=== PATIENT | female | born 1955 | race Caucasian/White ===

== ENCOUNTER 2023-08-06 08:49 | Day surgery (SDC) | payer OTHER ==
[2023-08-02 10:09] LABS: Absolute Lymphocytes (CBC) 1.9 K/uL (0.7-4.9); Hematocrit 41.7 % (36.0-45.0); Lymphocytes % 23.2 % (15.3-44.8); MCV 95.9 fL (80-100); MPV 8.3 fL (7.6-11.3); Platelets 203 thou/uL (152-406); RBC Red Blood Cell Count 4.34 M/uL (3.86-4.86)
[2023-08-02 10:13] LABS: Protime INR 0.91
[2023-08-02 10:20] LABS: Potassium 4.9 mEq/L (3.5-5.1)
--- NOTE | 2023-08-02 11:22 | RAD REPORT ---
EXAM DESCRIPTION: RAD - Chest Pa And Lat (2 Views) - 08/02/2023 11:00 am CLINICAL HISTORY: PRE OP Chest pain. COMPARISON: CHEST SINGLE VIEW dated 11/10/2013 TECHNIQUE: PA and lateral views of the chest were obtained. FINDINGS: The lungs are hyperexpanded compatible with COPD. The heart is upper limit of normal in si ze. No fracture or aggressive bony process. IMPRESSION: COPD without acute process identified. The USPSTF recommends annual screening for lung cancer with low-dose CT (LDCT) in adults aged 50 to 8 0 years who have a 20 pack-year smoking history and currently smoke or have quit within the past 15 y ears.
[2023-08-06] MEDS ORDERED: Ringers Lactate 1,000 ML IV ONE (09:26)
[2023-08-06] MEDS ORDERED: BUPIVACAINE 0.25% PF 10 ML VIAL ONE (09:40)
[2023-08-06] MEDS ORDERED: FENTANYL CITR 100 MCG/2 ML ONE (10:01)
[2023-08-06] MEDS ORDERED: propofoL 200 MG/20 ML VIAL IV ONE (10:01)
[2023-08-06] MEDS ORDERED: dexAMETHasone 10 MG/ML VIAL ONE (10:01)
[2023-08-06] MEDS ORDERED: MIDAZOLAM HCL 2 MG/2 ML INJ ONE (10:02)
[2023-08-06] MEDS ORDERED: LIDOCAINE 2% MPF 5 ML VIAL ONE (10:02)
[2023-08-06] MEDS ORDERED: KETOROLAC 30 MG/ML INJ ONE (10:02)
[2023-08-06] MEDS ORDERED: ONDANSETRON 4 MG/2 ML VIAL ONE (10:03)
[2023-08-06] MEDS ORDERED: VANCOMYCIN 1 GM in NA CHLORIDE 0.9% 250 ML IVPB SCH (10:15)
--- NOTE | 2023-08-06 11:04 | P.BOP ---
Preoperative diagnosis: right knee medial and lateral meniscus tears Postoperative diagnosis: Same Primary procedure: Right knee arthroscopic partial medial and lateral meniscectomy Laserist: NONE,NONE Estimated blood loss: 5 cc Specimen: None Findings: See dictation Anesthesia: General Complications: None Implants: None Fluids & blood products: Per anesthesia record Transferred to: Recovery Room Condition: Good
[2023-08-06] MEDS ORDERED: HYDRALAZINE HCL 20 MG/ML VIAL IV ONE (11:43)
[2023-08-06] MEDS ORDERED: HYDROCODONE/APAP 7.5/325 MG TAB ONE (12:56)
[2023-08-06 13:43] VITALS: BP 158/80; TEMP 97.8; O2SAT 95
--- NOTE | 2023-08-07 14:33 | EKG ---
Test Date: 2023-08-02 Test Time: 10:53:19 [employer] Agent: RADHA MEASUREMENT RESULTS: Intervals: Rate: 73 ID: [id number] QRSD: 82 QT: 404 QTc: 445 [place]: P: 34 ID: [id number] QRS: -7 T: 35 INTERPRETIVE STATEMENTS: Normal sinus rhythm Normal ECG Compared to ECG 11/12/2013 04:54:48 Short ID interval no longer present T-wave abnormality no longer present Electronically Signed On 08-07-23 14:17:53 [employer] DRAWER by Bonifacio Nazario
--- NOTE | 2023-08-09 19:35 | OP ---
Date of Procedure: 08/06/2023 Surgeon: Alex Velasquez MD Preoperative Diagnoses: 1.Right knee medial meniscus tear. 2.Right knee lateral meniscus tear. Postoperative Diagnoses: 1.Right knee medial meniscus tear. 2.Right knee lateral meniscus tear. Procedure Performed: Right knee arthroscopic partial medial and lateral meniscectomies. Anesthesia: General LMA. Fluids: Per Anesthesia record. Estimated Blood Loss: 5 cc. Complications: None. Implants: None. Indication For Procedure: Michelle is a 67-year-old female who presented to my clinic with signs and sy mptoms consistent with right knee lateral and medial meniscus tears. I discussed with the patient at length risks and benefits associated with operative and nonoperative treatment measures. She expres sed understanding and elected to proceed with operative treatment. Description Of Procedure: After informed consent was obtained, the patient was identified in the pre operative holding area. The right lower extremity was marked. The patient was then brought back to the operating room, transferred to the operating table in supine fashion, placed under general LMA an esthesia. The right lower extremity was then prepped and draped in usual sterile fashion. A time-ou t was initiated. The correct patient and procedure were confirmed and identified. The patient did r eceive preoperative prophylactic antibiotics. The right lower extremity was exsanguinated. The tour niquet was inflated to 300 mmHg. Standard anteromedial and anterolateral portals were created. Arth roscope was brought in via an anterolateral portal and diagnostic arthroscopy was performed. The art hroscope was first brought in the patellofemoral joint, and the patient was noted to have some mild f raying of the undersurface of the patella consistent with mild chondromalacia. The arthroscope was b rought into both medial and lateral gutters. There were no loose bodies within the gutters. The art hroscope was then brought into the medial compartment. The patient was noted to have a horizontal cl eavage tear of the posterior horn of the medial meniscus as well as the body. Partial medial menisce ctomy was performed using meniscal biters and arthroscopic shaver to smooth meniscal borders. The ar throscope was then brought into the intercondylar notch. The patient did have an intact ACL and PCL, which were stable to probe. The arthroscope was then brought into the lateral compartment, where th e patient did have a radial-type tear as well as some discoid-type morphology of the lateral meniscus . A partial lateral meniscectomy was performed as well as saucerization of the lateral meniscus usin g meniscal biters and arthroscopic shaver to smooth meniscal borders. The lateral meniscus was found to be stable to probe. All arthroscopic instruments were then removed without complication. Wounds were then irrigated thoroughly with normal saline. The portals were approximated using a 4-0 Monocr yl. Sterile dressings were applied. Tourniquet was let down. The patient was awakened and transfer red back in stable condition. Postoperative Plan: The patient will be weightbearing as tolerated on her right lower extremity. e will follow up next week for wound check. Physical Therapy will be consulted for post-meniscectomy protocol. AYSHA/MARISELA Voice ID: [id number] Report ID: [id number]
== END 2023-08-06 13:00 | disposition home or self-care (01) ==
LOC: OR 08:49
PROVIDERS: ATTEND Orthopaedic Surgery Sports Medicine
PROC: 0SBC4ZZ Excision of Right Knee Joint, Percutaneous Endoscopic Approach (ICD-10-PCS; 2023-08-06)
PROC: 0SBC4ZZ Excision of Right Knee Joint, Percutaneous Endoscopic Approach (ICD-10-PCS; principal; 2023-08-06 10:15)
DX: S83.241A Other tear of medial meniscus, current injury, right knee, initial encounter (principal); S83.281A Other tear of lateral meniscus, current injury, right knee, initial encounter; S83.8X1A Sprain of other specified parts of right knee, initial encounter; Z88.0 Allergy status to penicillin; Z88.1 Allergy status to other antibiotic agents; Z88.2 Allergy status to sulfonamides
CPT/HCPCS: 93005; 85025; 80048; 36415; 85610; 85730; 71046; 29880; J0360; J2704; J2001; J2250; J3010; J1100; J2405; J7120; J7050

== ENCOUNTER 2024-05-08 15:23 | Emergency (ER) | payer OTHER, MEDICARE ==
--- OUTSIDE RECORDS SUMMARY | 2024-05-08 15:36 | XMS REPORT | Continuity of Care Document ---
Author Name Unknown Address [address] [facility] [address] [place] [address] [facility] Address [address] [facility] [address] [place] [address] Care Team Providers Care Global Engineering Manager Name Role Phone Evelyn Kidd MD Primary Care Physician Evelyn Kidd Attending Clinician Unavailable JOHNSON, Luba L Attending Clinician Unavailable QUENTIN RUELAS Attending Clinician Unavailable Quentin Ruelas MD Attending Clinician [phone] Quentin Ruelas MD Attending Clinician [phone] LISS GUTIERREZ Attending Clinician Unavailab TIANA Perez Attending Clinician Unavailable Doctor Unassigned, [place] Attending Clinician U navailJOE Gan Attending Clinician Unavailable HERMAN CARRION Attending Clinician Unav ailable 2, [facility] Attending Clinician Unavailable ERIN SAUNDERS Attending Clinician Un available CHAGO OBRIEN Attending Clinician Unava ilable SHANTHI MILAN Attending Clinician Unavailable Shantel Martinez Attending Clinician [phone] SHANTEL FERNANDEZ Attending Clinician Unavailable Marty Jon MD Attending Clinician MARTY JON Attending Clinician Unavailable GAYLA CALLOWAY Attending Clinician Unavailable Gayla Quintana Attending Clinician CE GROVES Attending Clinician Unavail able QUENTIN RUELAS Admitting Clinician Unavailable Payers Payer Name Policy Type Policy Number Effective Date Expirati on Date Source [facility] [id number] 2021 00:00:00 [facility] [id number] 2017 00:00:00 [place] [address] [id number] [place] [address] [id number] [place] [address] [id number] [facility] Problems Condition Name Condition Details Condition Category Status Onset Date Resolution Date Last Treatment Date Treating Clinician Comments Source Hypertensi ve urgency Hypertensi ve urgency Disease Active 02-21 00:00: 00 [facility] Primary hypertensi on Primary hypertensi on Disease Active 12-02 00:00: 00 [facility] 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 Disease Active 12-02 00:00: 00 [facility] Nonobstruc tive atheroscle rosis of coronary artery Nonobstruc tive atheroscle rosis of coronary artery Disease Active 12-02 00:00: 00 [facility] MDD (major depressive disorder), recurrent episode, moderate MDD (major depressive disorder), recurrent episode, moderate Disease Active 05-17 00:00: 00 [facility] Anxiety Anxiety Disease Active 05-17 00:00: 00 [facility] Chronic pain syndrome Chronic pain syndrome Disease Active 05-17 00:00: 00 [facility] [id number] Stage 3a chronic kidney disease (CKD) Problem [facility] [id number] Gastroesop hageal reflux disease, unspecifie d whether esophagiti s present Problem [facility] [id number] Vitreous degenerati on, bilateral Problem [facility] [id number] 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, bilateral Problem [facility] [id number] Presbyopia Problem [facility] Chronic kidney disease due to hypertensi on Benign hypertensi on with chronic kidney disease, stage III Problem [facility] [id number] Primary osteoarthr itis of right knee Problem [facility] [id number] Coronary artery disease involving sioux coronary artery of sioux heart without angina pectoris Problem [facility] [id number] Vitamin D deficiency Problem [facility] Osteoporos is Osteoporos is Problem [facility] Hyperlipid emia Hyperlipid emia Problem [facility] Allergic rhinitis Allergic rhinitis Problem [facility] Rib pain Rib pain Problem [facility] [id number] Blood glucose elevated Problem [facility] Atheroscle rotic heart disease of sioux coronary artery without angina pectoris Arterioscl erotic coronary artery disease Problem [facility] Back pain Back pain Problem [facility] High cholestero l High cholestero l Problem [facility] [id number] Renal insufficie ncy Problem [facility] Cardiac arrhythmia Abnormal heart rhythm Problem [facility] [id number] Slow transit constipati on Problem [facility] Low blood pressure reading Low blood pressure reading Problem [facility] [id number] Thoracic spondylosi s Problem [facility] [id number] Screening mammogram, encounter for Problem [facility] [id number] Need for Tdap vaccinatio n Problem [facility] [id number] 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 Problem [facility] [id number] Adult general medical examinatio n Problem [facility] Hypertensi on HTN (hypertens ion) Problem [facility] Depression Depression Problem [facility] [id number] Other chronic pain Problem [facility] [id number] Lumbago with sciatica, left side Problem [facility] Cervical disc disorder DDD (degenerat kimberly disc disease), cervical Problem [facility] [id number] Lumbago with sciatica, right side Problem [facility] Allergies, Adverse Reactions, Alerts Allergy Name Allergy Type Status Severity Reaction(s) Onset Date Inactive Date Treating Clinician Comments Source AMLODIPI NE DRUG INGREDI Active Swelling 03-29 00:00: 00 [facility] Amlodipi ne Propensi ty to adverse reaction s Active Swelling 03-29 00:00: 00 [facility] PENICILL IN DRUG INGREDI Active Rash 10-22 00:00: 00 [facility] Penicill in Propensi ty to adverse reaction s to drug Active Rash 10-22 00:00: 00 [facility] doxycycl ine doxycycl ine Active hives, rash [facility] clindamy emmie clindamy emmie Active hives, rash [facility] 8091 Drug allergy Active hives, rash [facility] 0 Drug allergy Active hives [facility] Family History Family Member Diagnosis Comments Start Date Stop Date Sourc e Natural mother Diabetes [facility] Natural mother Heart [facility] Social History Social Habit Start Date Stop Date Quantity Comments Source Gender identity [facility] History of Social function 2024-02-17 00:00:00 2024-02-17 00:00:00 [facility] Alcoholic beverage intake 2024-02-17 00:00:00 2024-02-17 00:00:00 Current non-drinker of alcohol (finding) [facility] Tobacco use and exposure 2024-02-17 00:00:00 2024-02-17 00:00:00 Smokeless tobacco non-user [facility] Alcohol intake 2023-07-09 00:00:00 2023-07-09 00:00:00 Current non-drinker of alcohol (finding) [facility] Exposure to SARS-CoV-2 (event) 2022-10-26 00:00:00 2022-11-05 10:44:00 Not sure [facility] History of tobacco use 2012-10-22 00:00:00 Cigarette Smoker [facility] Smoking Status Start Date Stop Date Source Occasional tobacco smoker 2024-02-17 00:00:00 [facility] Never Smoker [facility] Current Smoker 2022-08-18 00:00:00 [facility] Medications Ordered Medication Name Filled Medication Name Start Date Stop Date Current Medication? Ordering Clinician Indication Dosage Frequency Signature (SIG) Comments Components Source lisinopriL 20 mg tablet 04-11 00:00: 00 Yes [id number] 20mg Take 1 tablet by mouth in the morning and 1 tablet in the evening. [facility] cloNIDine (CATAPRES) tablet 0.1 mg 02-21 20:30: 00 02-21 19:28 :00 No [id number] .1mg 0.1 mg, Oral, ONCE, 1 dose, On Wed02/22/24 at 1530, Routine [facility] cloNIDine (CATAPRES) tablet 0.1 mg 02-21 19:45: 00 02-21 18:52 :00 No [id number] .1mg 0.1 mg, Oral, ONCE, 1 dose, On Wed02/22/24 at 1445, Routine [facility] alendronate (FOSAMAX) 70 mg tablet 02-21 13:42: 27 Yes 70mg Take 1 tablet by mouth weekly. [facility] amLODIPine 10 mg tablet 02-21 00:00: 00 03-29 00:00 :00 No [id number] 10mg Take 1 tablet by mouth in the morning. [facility] rosuvastati n 20 mg tablet 02-16 13:25: 56 Yes 20mg Take 1 tablet by mouth at bedtime. [facility] pravastatin 40 mg tablet 02-16 13:25: 56 03-29 00:00 :00 No 40mg Take 1 tablet by mouth at bedtime. [facility] buPROPion XL (WELLBUTRIN XL) 150 mg 24 hr tablet 02-16 00:00: 00 Yes [id number] 150mg Take 1 tablet by mouth in the morning. Take along with 300mg for 450mg total. [facility] Rosuvastati n Calcium 20 MG Rosuvastati n Calcium 20 MG 02-10 00:00: 00 No 1{table t} QD Rosuvastat in Calcium 20 MG carvediloL 25 mg tablet 01-23 00:00: 00 Yes [id number] 25mg Take 1 tablet by mouth in the morning and 1 tablet in the evening. Take with meals. [facility] buPROPion XL (WELLBUTRIN XL) 300 mg 24 hr tablet 11-11 00:00: 00 Yes [id number] 300mg Take 1 tablet by mouth in the morning. [facility] DULoxetine 60 mg capsule 11-11 00:00: 00 Yes [id number] 60mg Take 1 capsule by mouth in the morning and 1 capsule in the evening. [facility] lisinopriL 20 mg tablet 2022-09 00:00: 00 Yes [id number] 20mg Take 1 tablet by mouth in the morning and 1 tablet in the evening. [facility] Prolia 60 MG/ML Prolia 60 MG/ML 2022-09 017 00:00: 00 No Prolia 60 MG/ML buPROPion XL (WELLBUTRIN XL) 300 mg 24 hr tablet 2022-09 0- 00:00: 00 11-11 00:00 :00 No [id number] 300mg Take 1 tablet by mouth in the morning. [facility] DULoxetine 60 mg capsule 2022-09 0- 00:00: 00 11-11 00:00 :00 No [id number] 60mg Take 1 capsule by mouth in the morning and 1 capsule in the evening. [facility] carvediloL 25 mg tablet 2022-0 9-18 00:00: 00 01-23 00:00 :00 No [id number] 25mg Take 1 tablet by mouth in the morning and 1 tablet in the evening. Take with meals. [facility] DULoxetine 60 mg capsule 0 7-13 00:00: 00 07-09 00:00 :00 No [id number] 60mg Take 1 capsule by mouth in the morning and 1 capsule in the evening. [facility] buPROPion XL 150 mg 24 hr tablet 0 7- 00:00: 00 07-09 00:00 :00 No [id number] 300mg Take 2 tablets by mouth in the morning. [facility] lisinopriL 20 mg tablet 0 5-31 00:00: 00 09-14 00:00 :00 No [id number] 20mg Take 1 tablet by mouth in the morning and 1 tablet in the evening. [facility] carvediloL 25 mg tablet 2022-0 3-17 00:00: 00 06-14 00:00 :00 No [id number] 25mg Take 1 tablet by mouth in the morning and 1 tablet in the evening. Take with meals. [facility] Metoclopram keith 5 mg TbDL 2-09 10:56: 27 Yes Take by mouth 3 (three) times daily. [facility] buPROPion XL 150 mg 24 hr tablet 2022-0 2-09 00:00: 00 04-08 00:00 :00 No [id number] 300mg Take 2 tablets by mouth in the morning. [facility] DULoxetine 60 mg capsule 2022-0 2-09 00:00: 00 04-08 00:00 :00 No [id number] 60mg Take 1 capsule by mouth in the morning and 1 capsule in the evening. [facility] lisinopriL 20 mg tablet 2021-09 1-30 00:00: 00 02-24 00:00 :00 No [id number] 20mg Take 1 tablet by mouth in the morning and 1 tablet in the evening. [facility] carvediloL 12.5 mg tablet 2021-09 00:00: 00 12-11 00:00 :00 No [id number] 12.5mg Take 1 tablet by mouth in the morning and 1 tablet in the evening. Take with meals. [facility] diclofenac 75 mg EC tablet 2021-09 09:44: 39 Yes 75mg Take 75 mg by mouth 3 (three) times daily with meals. [facility] DULoxetine 60 mg capsule 2021-09 00:00: 00 11-05 00:00 :00 No [id number] 60mg Take 1 capsule by mouth in the morning and 1 capsule in the evening. [facility] buPROPion XL 300 mg 24 hr tablet 2021-09 00:00: 00 11-05 00:00 :00 No [id number] 300mg Take 1 tablet by mouth in the morning. [facility] buPROPion XL (WELLBUTRIN XL) 150 mg 24 hr tablet 04-24 00:00: 00 11-05 00:00 :00 No [id number] 150mg Take 1 tablet by mouth in the morning. [facility] buPROPion XL 300 mg 24 hr tablet 04-24 00:00: 00 07-30 00:00 :00 No [id number] 300mg Take 1 tablet by mouth in the morning. [facility] DULoxetine 60 mg capsule 04-24 00:00: 00 07-30 00:00 :00 No [id number] 60mg Take 1 capsule by mouth in the morning and 1 capsule in the evening. [facility] busPIRone 15 mg tablet 04-06 00:00: 00 02-16 00:00 :00 No [id number] 15mg Take 1 tablet by mouth in the morning and 1 tablet in the evening. [facility] lisinopriL 20 mg tablet 02-19 00:00: 00 08-26 00:00 :00 No [id number] 20mg Take 1 tablet by mouth 2 (two) times daily. [facility] carvediloL 12.5 mg tablet 02-19 00:00: 00 08-24 00:00 :00 No [id number] 25mg Take 2 tablets by mouth 2 (two) times daily with meals. [facility] aspirin 81 mg chewable tablet 11-28 08:40: 03 Yes 81mg Take 81 mg by mouth daily. [facility] diclofenac 75 mg EC tablet 11-28 08:40: 03 Yes 75mg Take 75 mg by mouth 3 (three) times daily with meals. [facility] cyclobenzap rine 10 mg tablet 11-28 08:40: 03 Yes 10mg Take 10 mg by mouth 3 (three) times daily. [facility] pravastatin 40 mg tablet 2020-09 10:44: 15 Yes 40mg Take 1 tablet by mouth at bedtime. [facility] DULoxetine 60 mg capsule 2020-09 00:00: 00 04-24 00:00 :00 No [id number] 60mg Take 1 capsule by mouth 2 (two) times daily. [facility] buPROPion XL 300 mg 24 hr tablet 2020-09 00:00: 00 04-24 00:00 :00 No [id number] 300mg Take 1 tablet by mouth daily. [facility] buPROPion XL (WELLBUTRIN XL) 150 mg 24 hr tablet 2020-09 00:00: 00 04-24 00:00 :00 No [id number] 150mg Take 1 tablet by mouth daily. [facility] oxyCODONE C.R. (OXYCONTIN) 80 mg 12 hr tablet 04-21 10:40: 05 Yes 80mg Take 80 mg by mouth every 12 (twelve) hours. [facility] alendronate (FOSAMAX) 70 mg tablet 04-21 10:40: 05 Yes 70mg Take 1 tablet by mouth weekly. [facility] DULoxetine HCl 60 MG DULoxetine HCl 60 MG No 1{capsu le} BID DULoxetine HCl 60 MG Omeprazole 40 MG Omeprazole 40 MG No QD Omeprazole 40 MG Coreg 25 MG Coreg 25 MG No 1{table t_with_ food} BID Coreg 25 MG Calcium 600 MG Calcium 600 MG No 1{table t_with_ meals} BID Calcium 600 MG buPROPion HCl ER (XL) 300 MG buPROPion HCl ER (XL) 300 MG No 1{table t_in_th e_morni ng} QD buPROPion HCl ER (XL) 300 MG Metoclopram keith HCl 5 MG Metoclopram keith HCl 5 MG No 1{table t_befor e_meals } BID Metoclopra mide HCl 5 MG Aspirin 81 MG Aspirin 81 MG No 1{table t} QD Aspirin 81 MG Vitamin D3 10 MCG (400 UNIT) Vitamin D3 10 MCG (400 UNIT) No 2{table ts} QD Vitamin D3 10 MCG (400 UNIT) Lisinopril 20 MG Lisinopril 20 MG No 1{table t} BID Lisinopril 20 MG Buprenorphi ne 10 MCG/HR Buprenorphi ne 10 MCG/HR No 1{patch _to_ski n} Buprenorph ine 10 MCG/HR Immunizations Ordered Immunization Name Filled Immunization Name Date Status Comments Source TDAP 2022-01-22 00:00:00 Completed [facility] TDAP 2022-01-22 00:00:00 Completed [facility] TDAP 2022-01-22 00:00:00 Completed [facility] TDAP 2022-01-22 00:00:00 Completed [facility] TDAP 2022-01-22 00:00:00 Completed [facility] TDAP 2022-01-22 00:00:00 Completed [facility] TDAP 2022-01-22 00:00:00 Completed [facility] TDAP 2022-01-22 00:00:00 Completed [facility] TDAP 2022-01-22 00:00:00 Completed [facility] TDAP 2022-01-22 00:00:00 Completed [facility] TDAP 2022-01-22 00:00:00 Completed [facility] TDAP 2022-01-22 00:00:00 Completed [facility] TDAP 2022-01-22 00:00:00 Completed [facility] TDAP 2022-01-22 00:00:00 Completed [facility] TDAP 2022-01-22 00:00:00 Completed [facility] TDAP 2022-01-22 00:00:00 Completed [facility] TDAP 2022-01-22 00:00:00 Completed [facility] TDAP 2022-01-22 00:00:00 Completed [facility] TDAP 2022-01-22 00:00:00 Completed [facility] TDAP 2022-01-22 00:00:00 Completed [facility] TDAP 2022-01-22 00:00:00 Completed [facility] TDAP 2022-01-22 00:00:00 Completed [facility] TDAP 2022-01-22 00:00:00 Completed [facility] TDAP 2022-01-22 00:00:00 Completed [facility] TDAP 2022-01-22 00:00:00 Completed [facility] TDAP 2022-01-22 00:00:00 Completed [facility] TDAP 2022-01-22 00:00:00 Completed [facility] TDAP 2022-01-22 00:00:00 Completed [facility] Influenza Virus Vaccine 2021-07-27 00:00:00 Completed [facility] Influenza Virus Vaccine 2021-07-27 00:00:00 Completed [facility] Influenza Virus Vaccine 2021-07-27 00:00:00 Completed [facility] Influenza Virus Vaccine 2021-07-27 00:00:00 Completed [facility] Influenza Virus Vaccine 2021-07-27 00:00:00 Completed [facility] Influenza Virus Vaccine 2021-07-27 00:00:00 Completed [facility] Influenza Virus Vaccine 2021-07-27 00:00:00 Completed [facility] Influenza Virus Vaccine 2021-07-27 00:00:00 Completed [facility] Influenza Virus Vaccine 2021-07-27 00:00:00 Completed [facility] Influenza Virus Vaccine 2021-07-27 00:00:00 Completed [facility] Influenza Virus Vaccine 2021-07-27 00:00:00 Completed [facility] Influenza Virus Vaccine 2021-07-27 00:00:00 Completed [facility] Influenza Virus Vaccine 2021-07-27 00:00:00 Completed [facility] Influenza Virus Vaccine 2021-07-27 00:00:00 Completed [facility] Influenza Virus Vaccine 2021-07-27 00:00:00 Completed [facility] Influenza Virus Vaccine 2021-07-27 00:00:00 Completed [facility] Influenza Virus Vaccine 2021-07-27 00:00:00 Completed [facility] Influenza Virus Vaccine 2021-07-27 00:00:00 Completed [facility] Influenza Virus Vaccine 2021-07-27 00:00:00 Completed [facility] Influenza Virus Vaccine 2021-07-27 00:00:00 Completed [facility] Influenza Virus Vaccine 2021-07-27 00:00:00 Completed [facility] Influenza Virus Vaccine 2021-07-27 00:00:00 Completed [facility] Influenza Virus Vaccine 2021-07-27 00:00:00 Completed [facility] Influenza Virus Vaccine 2021-07-27 00:00:00 Completed [facility] Influenza Virus Vaccine 2021-07-27 00:00:00 Completed [facility] Influenza Virus Vaccine 2021-07-27 00:00:00 Completed [facility] Influenza Virus Vaccine 2021-07-27 00:00:00 Completed [facility] Influenza Virus Vaccine 2021-07-27 00:00:00 Completed [facility] FluAD FluAD 2021-06-30 11:57:00 Completed [facility] FluAD FluAD 2021-06-30 11:57:00 Completed [facility] FluAD FluAD 2021-06-30 11:57:00 Completed [facility] FluAD FluAD 2021-06-30 11:57:00 Completed [facility] FluAD FluAD 2021-06-30 11:57:00 Completed [facility] FluAD FluAD 2021-06-30 11:57:00 Completed [facility] FluAD FluAD 2021-06-30 11:57:00 Completed [facility] FluAD FluAD 2021-06-30 11:57:00 [facility]pleted [facility] FluAD FluAD 2021-06-30 11:57:00 Completed [facility] FluAD FluAD 2021-06-30 11:57:00 Completed [facility] FluAD FluAD 2021-06-30 11:57:00 Completed [facility] FluAD FluAD 2021-06-30 11:57:00 Completed [facility] Prevnar 13 (PCV13) Prevnar 13 (PCV13) 2021-06-30 11:56:00 Completed [facility] Prevnar 13 (PCV13) Prevnar 13 (PCV13) 2021-06-30 11:56:00 Completed [facility] Prevnar 13 (PCV13) Prevnar 13 (PCV13) 2021-06-30 11:56:00 Completed [facility] Prevnar 13 (PCV13) Prevnar 13 (PCV13) 2021-06-30 11:56:00 Completed [facility] Prevnar 13 (PCV13) Prevnar 13 (PCV13) 2021-06-30 11:56:00 Completed [facility] Prevnar 13 (PCV13) Prevnar 13 (PCV13) 2021-06-30 11:56:00 Completed [facility] Prevnar 13 (PCV13) Prevnar 13 (PCV13) 2021-06-30 11:56:00 Completed [facility] Prevnar 13 (PCV13) Prevnar 13 (PCV13) 2021-06-30 11:56:00 Completed [facility] Prevnar 13 (PCV13) Prevnar 13 (PCV13) 2021-06-30 11:56:00 Completed [facility] Prevnar 13 (PCV13) Prevnar 13 (PCV13) 2021-06-30 11:56:00 Completed [facility] Prevnar 13 (PCV13) Prevnar 13 (PCV13) 2021-06-30 11:56:00 Completed [facility] Prevnar 13 (PCV13) Prevnar 13 (PCV13) 2021-06-30 11:56:00 Completed [facility] Flucelvax - single dose syringe Flucelvax - single dose syringe 2018-09-15 09:39:00 Completed [facility] Flucelvax - single dose syringe Flucelvax - single dose syringe 2018-09-15 09:39:00 Completed [facility] Flucelvax - single dose syringe Flucelvax - single dose syringe 2018-09-15 09:39:00 Completed [facility] Flucelvax - single dose syringe Flucelvax - single dose syringe 2018-09-15 09:39:00 Completed [facility] Flucelvax - single dose syringe Flucelvax - single dose syringe 2018-09-15 09:39:00 Completed [facility] Flucelvax - single dose syringe Flucelvax - single dose syringe 2018-09-15 09:39:00 Completed [facility] Flucelvax - single dose syringe Flucelvax - single dose syringe 2018-09-15 09:39:00 Completed [facility] Flucelvax - single dose syringe Flucelvax - single dose syringe 2018-09-15 09:39:00 Completed [facility] Flucelvax - single dose syringe Flucelvax - single dose syringe 2018-09-15 09:39:00 Completed [facility] Flucelvax - single dose syringe Flucelvax - single dose syringe 2018-09-15 09:39:00 Completed [facility] Flucelvax - single dose syringe Flucelvax - single dose syringe 2018-09-15 09:39:00 Completed [facility] Flucelvax - single dose syringe Flucelvax - single dose syringe 2018-09-15 09:39:00 Completed [facility] Flucelvax - single dose syringe Flucelvax - single dose syringe 2018-09-15 09:39:00 Completed [facility] Flucelvax - single dose syringe Flucelvax - single dose syringe 2018-09-15 09:39:00 Completed [facility] Flucelvax - single dose syringe Flucelvax - single dose syringe 2018-09-15 00:00:00 Completed [facility] Adacel (Tdap) Adacel (Tdap) 2018-03-16 12:20:00 Completed [facility] Adacel (Tdap) Adacel (Tdap) 2018-03-16 12:20:00 Completed [facility] Adacel (Tdap) Adacel (Tdap) 2018-03-16 12:20:00 Completed [facility] Adacel (Tdap) Adacel (Tdap) 2018-03-16 12:20:00 Completed [facility] Adacel (Tdap) Adacel (Tdap) 2018-03-16 12:20:00 Completed [facility] Adacel (Tdap) Adacel (Tdap) 2018-03-16 12:20:00 Completed [facility] Adacel (Tdap) Adacel (Tdap) 2018-03-16 12:20:00 Completed [facility] Adacel (Tdap) Adacel (Tdap) 2018-03-16 12:20:00 [facility]pleted [facility] Adacel (Tdap) Adacel (Tdap) 2018-03-16 12:20:00 [facility] Adacel (Tdap) Adacel (Tdap) 2018-03-16 12:20:00 Completed [facility] Adacel (Tdap) Adacel (Tdap) 2018-03-16 12:20:00 [facility]pleted [facility] Adacel (Tdap) Adacel (Tdap) 2018-03-16 12:20:00 Completed [facility] Adacel (Tdap) Adacel (Tdap) 2018-03-16 12:20:00 Completed [facility] Adacel (Tdap) Adacel (Tdap) 2018-03-16 12:20:00 Completed [facility] TDAP > 7 Years-Adacel TDAP > 7 Years-Adacel 2018-03-16 00:00:00 Completed [facility] Influenza Virus Vaccine Unknown Completed [facility] TDAP Unknown Completed [facility] Influenza Virus Vaccine Unknown Completed [facility] TDAP Unknown Completed [facility] Influenza Virus Vaccine Unknown Completed [facility] TDAP Unknown Completed [facility] Influenza Virus Vaccine Unknown Completed [facility] TDAP Unknown Completed [facility] Influenza Virus Vaccine Unknown Completed [facility] TDAP Unknown Completed [facility] Influenza Virus Vaccine Unknown Completed [facility] TDAP Unknown Completed [facility] Influenza Virus Vaccine Unknown Completed [facility] TDAP Unknown Completed [facility] Influenza Virus Vaccine Unknown Completed [facility] TDAP Unknown Completed [facility] Influenza Virus Vaccine Unknown Completed [facility] TDAP Unknown Completed [facility] Influenza Virus Vaccine Unknown Completed [facility] TDAP Unknown Completed [facility] Influenza Virus Vaccine Unknown Completed [facility] TDAP Unknown Completed [facility] Influenza Virus Vaccine Unknown Completed [facility] TDAP Unknown Completed [facility] Influenza Virus Vaccine Unknown Completed [facility] TDAP Unknown Completed [facility] Influenza Virus Vaccine Unknown Completed [facility] TDAP Unknown Completed [facility] Influenza Virus Vaccine Unknown Completed [facility] TDAP Unknown Completed [facility] Influenza Virus Vaccine Unknown Completed [facility] TDAP Unknown Completed [facility] Influenza Virus Vaccine Unknown Completed [facility] TDAP Unknown Completed [facility] Influenza Virus Vaccine Unknown Completed [facility] TDAP Unknown Completed [facility] Influenza Virus Vaccine Unknown Completed [facility] TDAP Unknown Completed [facility] Influenza Virus Vaccine Unknown Completed [facility] TDAP Unknown Completed [facility] Influenza Virus Vaccine Unknown Completed [facility] TDAP Unknown Completed [facility] Influenza Virus Vaccine Unknown Completed [facility] TDAP Unknown Completed [facility] Influenza Virus Vaccine Unknown Completed [facility] TDAP Unknown Completed [facility] Influenza Virus Vaccine Unknown Completed [facility] TDAP Unknown Completed [facility] Influenza Virus Vaccine Unknown Completed [facility] TDAP Unknown Completed [facility] Influenza Virus Vaccine Unknown Completed [facility] TDAP Unknown Completed [facility] Influenza Virus Vaccine Unknown Completed [facility] TDAP Unknown Completed [facility] FluAD FluAD Unknown Completed [facility] Flucelvax (ccIIV4) - SDS - 0.5mL Flucelvax (ccIIV4) - SDS - 0.5mL Unknown Completed [facility] Adacel (Tdap) Adacel (Tdap) Unknown Completed [facility] Prevnar 13 (PCV13) Prevnar 13 (PCV13) Unknown Completed [facility] FluAD FluAD Unknown Completed [facility] Flucelvax (ccIIV4) - SDS - 0.5mL Flucelvax (ccIIV4) - SDS - 0.5mL Unknown Completed [facility] Adacel (Tdap) Adacel (Tdap) Unknown Completed [facility] Prevnar 13 (PCV13) Prevnar 13 (PCV13) Unknown Completed [facility] FluAD FluAD Unknown Completed [facility] Flucelvax (ccIIV4) - SDS - 0.5mL Flucelvax (ccIIV4) - SDS - 0.5mL Unknown Completed [facility] Adacel (Tdap) Adacel (Tdap) Unknown Completed [facility] Prevnar 13 (PCV13) Prevnar 13 (PCV13) Unknown Completed [facility] FluAD FluAD Unknown Completed [facility] Flucelvax (ccIIV4) - SDS - 0.5mL Flucelvax (ccIIV4) - SDS - 0.5mL Unknown Completed [facility] Adacel (Tdap) Adacel (Tdap) Unknown Completed [facility] Prevnar 13 (PCV13) Prevnar 13 (PCV13) Unknown Completed [facility] FluAD FluAD Unknown Completed [facility] Flucelvax (ccIIV4) - SDS - 0.5mL Flucelvax (ccIIV4) - SDS - 0.5mL Unknown Completed [facility] Adacel (Tdap) Adacel (Tdap) Unknown Completed [facility] Prevnar 13 (PCV13) Prevnar 13 (PCV13) Unknown Completed [facility] FluAD FluAD Unknown Completed [facility] Flucelvax (ccIIV4) - SDS - 0.5mL Flucelvax (ccIIV4) - SDS - 0.5mL Unknown Completed [facility] Adacel (Tdap) Adacel (Tdap) Unknown Completed [facility] Prevnar 13 (PCV13) Prevnar 13 (PCV13) Unknown Completed [facility] FluAD FluAD Unknown Completed [facility] Flucelvax (ccIIV4) - SDS - 0.5mL Flucelvax (ccIIV4) - SDS - 0.5mL Unknown Completed [facility] Adacel (Tdap) Adacel (Tdap) Unknown Completed [facility] Prevnar 13 (PCV13) Prevnar 13 (PCV13) Unknown Completed [facility] FluAD FluAD Unknown Completed [facility] Flucelvax (ccIIV4) - SDS - 0.5mL Flucelvax (ccIIV4) - SDS - 0.5mL Unknown Completed [facility] Adacel (Tdap) Adacel (Tdap) Unknown Completed [facility] Prevnar 13 (PCV13) Prevnar 13 (PCV13) Unknown Completed [facility] FluAD FluAD Unknown Completed [facility] Flucelvax (ccIIV4) - SDS - 0.5mL Flucelvax (ccIIV4) - SDS - 0.5mL Unknown Completed [facility] Adacel (Tdap) Adacel (Tdap) Unknown Completed [facility] Prevnar 13 (PCV13) Prevnar 13 (PCV13) Unknown Completed [facility] FluAD FluAD Unknown Completed [facility] Flucelvax (ccIIV4) - SDS - 0.5mL Flucelvax (ccIIV4) - SDS - 0.5mL Unknown Completed [facility] Adacel (Tdap) Adacel (Tdap) Unknown Completed [facility] Prevnar 13 (PCV13) Prevnar 13 (PCV13) Unknown Completed [facility] FluAD FluAD Unknown Completed [facility] Flucelvax (ccIIV4) - SDS - 0.5mL Flucelvax (ccIIV4) - SDS - 0.5mL Unknown Completed [facility] Adacel (Tdap) Adacel (Tdap) Unknown Completed [facility] Prevnar 13 (PCV13) Prevnar 13 (PCV13) Unknown Completed [facility] FluAD FluAD Unknown Completed [facility] Flucelvax (ccIIV4) - SDS - 0.5mL Flucelvax (ccIIV4) - SDS - 0.5mL Unknown Completed [facility] Adacel (Tdap) Adacel (Tdap) Unknown Completed [facility] Prevnar 13 (PCV13) Prevnar 13 (PCV13) Unknown Completed [facility] FluAD FluAD Unknown Completed [facility] Flucelvax (ccIIV4) - SDS - 0.5mL Flucelvax (ccIIV4) - SDS - 0.5mL Unknown Completed [facility] Adacel (Tdap) Adacel (Tdap) Unknown Completed [facility] Prevnar 13 (PCV13) Prevnar 13 (PCV13) Unknown Completed [facility] FluAD FluAD Unknown Completed [facility] Flucelvax (ccIIV4) - SDS - 0.5mL Flucelvax (ccIIV4) - SDS - 0.5mL Unknown Completed [facility] Adacel (Tdap) Adacel (Tdap) Unknown Completed [facility] Prevnar 13 (PCV13) Prevnar 13 (PCV13) Unknown Completed [facility] FluAD FluAD Unknown Completed [facility] Flucelvax (ccIIV4) - SDS - 0.5mL Flucelvax (ccIIV4) - SDS - 0.5mL Unknown Completed [facility] Adacel (Tdap) Adacel (Tdap) Unknown Completed [facility] Prevnar 13 (PCV13) Prevnar 13 (PCV13) Unknown Completed [facility] FluAD FluAD Unknown Completed [facility] Flucelvax (ccIIV4) - SDS - 0.5mL Flucelvax (ccIIV4) - SDS - 0.5mL Unknown Completed [facility] Adacel (Tdap) Adacel (Tdap) Unknown Completed [facility] Prevnar 13 (PCV13) Prevnar 13 (PCV13) Unknown Completed [facility] Prevnar 20 (PCV20) Prevnar 20 (PCV20) Unknown Completed [facility] FluAD FluAD Unknown Completed [facility] Flucelvax (ccIIV4) - SDS - 0.5mL Flucelvax (ccIIV4) - SDS - 0.5mL Unknown Completed [facility] Adacel (Tdap) Adacel (Tdap) Unknown Completed [facility] Prevnar 13 (PCV13) Prevnar 13 (PCV13) Unknown Completed [facility] Prevnar 20 (PCV20) Prevnar 20 (PCV20) Unknown Completed [facility] FluAD FluAD Unknown Completed [facility] Flucelvax (ccIIV4) - SDS - 0.5mL Flucelvax (ccIIV4) - SDS - 0.5mL Unknown Completed [facility] Adacel (Tdap) Adacel (Tdap) Unknown Completed [facility] Prevnar 13 (PCV13) Prevnar 13 (PCV13) Unknown Completed [facility] Prevnar 20 (PCV20) Prevnar 20 (PCV20) Unknown Completed [facility] FluAD FluAD Unknown Completed [facility] Flucelvax (ccIIV4) - SDS - 0.5mL Flucelvax (ccIIV4) - SDS - 0.5mL Unknown Completed [facility] Adacel (Tdap) Adacel (Tdap) Unknown Completed [facility] Prevnar 13 (PCV13) Prevnar 13 (PCV13) Unknown Completed [facility] Vital Signs Vital Name Observation Time Observation Value Comments S ource Systolic blood pressure 2024-03-29 18:31:00 173 mm[Hg] taken w/pt's bp machine [facility] Diastolic blood pressure 2024-03-29 18:31:00 108 mm[Hg] taken w/pt's bp machine [facility] Heart rate 2024-03-29 18:31:00 81 /min [facility] Respiratory rate 2024-03-29 18:29:00 17 /min [facility] Body height 2024-03-29 18:29:00 148.6 cm [facility] Body weight 2024-03-29 18:29:00 58.06 kg [facility] BMI 2024-03-29 18:29:00 26.30 kg/m2 [facility] Oxygen saturation in Arterial blood by Pulse oximetry 2024-03-29 18:29:00 96 /min [facility] Body temperature 2024-03-29 18:29:00 36.44 Sarah [facility] Systolic blood pressure 2024-02-22 20:12:00 172 mm[Hg] [facility] Diastolic blood pressure 2024-02-22 20:12:00 99 mm[Hg] [facility] Heart rate 2024-02-22 19:22:00 81 /min [facility] Oxygen saturation in Arterial blood by Pulse oximetry 2024-02-22 19:22:00 98 /min [facility] Body temperature 2024-02-22 18:39:00 36.56 Sarah [facility] Respiratory rate 2024-02-22 18:39:00 17 /min [facility] Body weight 2024-02-22 18:39:00 55.974 kg [facility] BMI 2024-02-22 18:39:00 25.35 kg/m2 [facility] Body height 2024-02-22 18:37:00 148.6 cm per pt [facility] height 2024-02-11 08:40:00 58 [in_i] [facility] weight 2024-02-11 08:40:00 125.2 [lb_av] [facility] temperature 2024-02-11 08:40:00 97.2 [degF] [facility] bmi 2024-02-11 08:40:00 26.16 kg/m2 [facility] oximetry 2024-02-11 08:40:00 97 % [facility] respiratory rate 2024-02-11 08:40:00 16 /min [facility] blood pressure systolic 2024-02-11 08:40:00 134 mm[Hg] [facility] blood pressure diastolic 2024-02-11 08:40:00 72 mm[Hg] [facility] height 2024-02-11 08:40:00 58 [in_i] [facility] weight 2024-02-11 08:40:00 125.2 [lb_av] [facility] temperature 2024-02-11 08:40:00 97.2 [degF] [facility] bmi 2024-02-11 08:40:00 26.16 kg/m2 [facility] oximetry 2024-02-11 08:40:00 97 % [facility] respiratory rate 2024-02-11 08:40:00 16 /min [facility] blood pressure systolic 2024-02-11 08:40:00 134 mm[Hg] [facility] blood pressure diastolic 2024-02-11 08:40:00 72 mm[Hg] [facility] height 2023-09-30 10:45:00 58 [in_i] [facility] weight 2023-09-30 10:45:00 125 [lb_av] [facility] temperature 2023-09-30 10:45:00 98.0 [degF] [facility] bmi 2023-09-30 10:45:00 26.1 kg/m2 [facility] blood pressure systolic 2023-09-30 10:45:00 132 mm[Hg] [facility] blood pressure diastolic 2023-09-30 10:45:00 76 mm[Hg] [facility] height 2023-08-31 09:00:00 58 [in_i] [facility] weight 2023-08-31 09:00:00 125 [lb_av] [facility] temperature 2023-08-31 09:00:00 98.6 [degF] [facility] bmi 2023-08-31 09:00:00 26.12 kg/m2 [facility] blood pressure systolic 2023-08-31 09:00:00 128 mm[Hg] [facility] blood pressure diastolic 2023-08-31 09:00:00 74 mm[Hg] [facility] height 2023-08-12 08:30:00 58 [in_i] [facility] weight 2023-08-12 08:30:00 125 [lb_av] [facility] temperature 2023-08-12 08:30:00 98.0 [degF] [facility] bmi 2023-08-12 08:30:00 26.12 kg/m2 [facility] blood pressure systolic 2023-08-12 08:30:00 124 mm[Hg] [facility] blood pressure diastolic 2023-08-12 08:30:00 72 mm[Hg] [facility] height 2023-07-13 14:20:00 58 [in_i] [facility] weight 2023-07-13 14:20:00 124.8 [lb_av] [facility] temperature 2023-07-13 14:20:00 97.3 [degF] [facility] bmi 2023-07-13 14:20:00 26.08 kg/m2 [facility] oximetry 2023-07-13 14:20:00 95 % [facility] respiratory rate 2023-07-13 14:20:00 16 /min [facility] blood pressure systolic 2023-07-13 14:20:00 136 mm[Hg] [facility] blood pressure diastolic 2023-07-13 14:20:00 82 mm[Hg] [facility] height 2023-07-13 08:15:00 58 [in_i] [facility] weight 2023-07-13 08:15:00 125 [lb_av] [facility] bmi 2023-07-13 08:15:00 26.12 kg/m2 [facility] blood pressure systolic 2023-07-13 08:15:00 129 mm[Hg] [facility] blood pressure diastolic 2023-07-13 08:15:00 84 mm[Hg] [facility] height 2023-06-15 15:00:00 58 [in_i] [facility] weight 2023-06-15 15:00:00 125.9 [lb_av] [facility] bmi 2023-06-15 15:00:00 26.31 kg/m2 [facility] blood pressure systolic 2023-06-15 15:00:00 134 mm[Hg] [facility] blood pressure diastolic 2023-06-15 15:00:00 84 mm[Hg] [facility] height 2023-06-01 09:20:00 60.00 [in_i] [facility] weight 2023-06-01 09:20:00 124 [lb_av] [facility] temperature 2023-06-01 09:20:00 97.4 [degF] [facility] bmi 2023-06-01 09:20:00 24.21 kg/m2 [facility] oximetry 2023-06-01 09:20:00 96 % [facility] respiratory rate 2023-06-01 09:20:00 16 /min [facility] blood pressure systolic 2023-06-01 09:20:00 111 mm[Hg] [facility] blood pressure diastolic 2023-06-01 09:20:00 74 mm[Hg] [facility] Systolic blood pressure 2023-04-19 15:10:00 128 mm[Hg] [facility] Diastolic blood pressure 2023-04-19 15:10:00 71 mm[Hg] [facility] Heart rate 2023-04-19 15:10:00 61 /min [facility] Respiratory rate 2023-04-19 15:10:00 19 /min [facility] Body height 2023-04-19 15:10:00 148.6 cm [facility] Body weight 2023-04-19 15:10:00 56.564 kg [facility] BMI 2023-04-19 15:10:00 25.62 kg/m2 [facility] Oxygen saturation in Arterial blood by Pulse oximetry 2023-04-19 15:10:00 97 /min [facility] height 2022-08-18 16:20:00 60.00 [in_i] [facility] weight 2022-08-18 16:20:00 136.4 [lb_av] [facility] temperature 2022-08-18 16:20:00 97.7 [degF] [facility] bmi 2022-08-18 16:20:00 26.64 kg/m2 [facility] oximetry 2022-08-18 16:20:00 96 % [facility] respiratory rate 2022-08-18 16:20:00 18 /min [facility] blood pressure systolic 2022-08-18 16:20:00 132 mm[Hg] [facility] blood pressure diastolic 2022-08-18 16:20:00 82 mm[Hg] [facility] height 2022-05-19 11:00:00 60.00 [in_i] [facility] weight 2022-05-19 11:00:00 134 [lb_av] [facility] bmi 2022-05-19 11:00:00 26.17 kg/m2 [facility] Systolic blood pressure 2022-04-22 15:14:00 136 mm[Hg] [facility] Diastolic blood pressure 2022-04-22 15:14:00 78 mm[Hg] [facility] Heart rate 2022-04-22 15:14:00 65 /min [facility] Body temperature 2022-04-22 15:12:00 35.83 Sarah [facility] Respiratory rate 2022-04-22 15:12:00 16 /min [facility] Body height 2022-04-22 15:12:00 147.3 cm [facility] Body weight 2022-04-22 15:12:00 60.328 kg [facility] BMI 2022-04-22 15:12:00 27.80 kg/m2 [facility] Oxygen saturation in Arterial blood by Pulse oximetry 2022-04-22 15:12:00 98 /min [facility] height 2022-02-16 11:00:00 60.00 [in_i] [facility] weight 2022-02-16 11:00:00 134.8 [lb_av] [facility] temperature 2022-02-16 11:00:00 97.5 [degF] [facility] bmi 2022-02-16 11:00:00 26.32 kg/m2 [facility] oximetry 2022-02-16 11:00:00 97 % [facility] respiratory rate 2022-02-16 11:00:00 17 /min [facility] blood pressure systolic 2022-02-16 11:00:00 139 mm[Hg] [facility] blood pressure diastolic 2022-02-16 11:00:00 85 mm[Hg] [facility] height 2021-11-18 10:20:00 60.00 [in_i] [facility] weight 2021-11-18 10:20:00 139.2 [lb_av] [facility] temperature 2021-11-18 10:20:00 98.0 [degF] [facility] bmi 2021-11-18 10:20:00 27.18 kg/m2 [facility] oximetry 2021-11-18 10:20:00 97 % [facility] respiratory rate 2021-11-18 10:20:00 16 /min [facility] blood pressure systolic 2021-11-18 10:20:00 138 mm[Hg] [facility] blood pressure diastolic 2021-11-18 10:20:00 72 mm[Hg] [facility] height 2021-06-30 11:00:00 60.00 [in_i] [facility] weight 2021-06-30 11:00:00 129 [lb_av] [facility] temperature 2021-06-30 11:00:00 97.4 [degF] [facility] bmi 2021-06-30 11:00:00 25.19 kg/m2 [facility] oximetry 2021-06-30 11:00:00 99 % [facility] respiratory rate 2021-06-30 11:00:00 16 /min [facility] blood pressure systolic 2021-06-30 11:00:00 134 mm[Hg] [facility] blood pressure diastolic 2021-06-30 11:00:00 70 mm[Hg] [facility] height 2021-03-28 10:40:00 60.00 [in_i] [facility] weight 2021-03-28 10:40:00 128.6 [lb_av] [facility] temperature 2021-03-28 10:40:00 97.2 [degF] [facility] bmi 2021-03-28 10:40:00 25.11 kg/m2 [facility] oximetry 2021-03-28 10:40:00 95 % [facility] respiratory rate 2021-03-28 10:40:00 15 /min [facility] blood pressure systolic 2021-03-28 10:40:00 116 mm[Hg] [facility] blood pressure diastolic 2021-03-28 10:40:00 71 mm[Hg] [facility] Systolic blood pressure 2024-02-17 18:29:00 154 mm[Hg] [facility] Diastolic blood pressure 2024-02-17 18:29:00 89 mm[Hg] [facility] Heart rate 2024-02-17 18:29:00 86 /min [facility] Respiratory rate 2024-02-17 18:21:00 20 /min [facility] Body height 2024-02-17 18:21:00 148.6 cm [facility] Body weight 2024-02-17 18:21:00 55.792 kg [facility] BMI 2024-02-17 18:21:00 25.27 kg/m2 [facility] Respiratory rate 2023-11-11 16:09:00 20 /min [facility] Body height 2023-11-11 16:09:00 148.6 cm [facility] Body weight 2023-11-11 16:09:00 54.931 kg [facility] BMI 2023-11-11 16:09:00 24.88 kg/m2 [facility] Systolic blood pressure 2023-07-09 20:39:00 119 mm[Hg] [facility] Diastolic blood pressure 2023-07-09 20:39:00 71 mm[Hg] [facility] Heart rate 2023-07-09 20:39:00 77 /min [facility] Respiratory rate 2023-07-09 20:36:00 18 /min [facility] Body height 2023-07-09 20:36:00 148.6 cm [facility] Body weight 2023-07-09 20:36:00 56.473 kg [facility] BMI 2023-07-09 20:36:00 25.58 kg/m2 [facility] Oxygen saturation in Arterial blood by Pulse oximetry 2023-04-19 15:10:00 97 /min [facility] Systolic blood pressure 2023-04-08 14:45:00 130 mm[Hg] [facility] Diastolic blood pressure 2023-04-08 14:45:00 70 mm[Hg] [facility] Heart rate 2023-04-08 14:45:00 68 /min [facility] Respiratory rate 2023-04-08 14:45:00 18 /min [facility] Body height 2023-04-08 14:45:00 147.3 cm [facility] Body weight 2023-04-08 14:45:00 56.972 kg [facility] BMI 2023-04-08 14:45:00 26.25 kg/m2 [facility] Systolic blood pressure 2022-11-05 16:51:00 136 mm[Hg] [facility] Diastolic blood pressure 2022-11-05 16:51:00 80 mm[Hg] [facility] Heart rate 2022-11-05 16:51:00 67 /min [facility] Respiratory rate 2022-11-05 16:51:00 20 /min [facility] Body height 2022-11-05 16:51:00 147.3 cm [facility] Body weight 2022-11-05 16:51:00 61.598 kg [facility] BMI 2022-11-05 16:51:00 28.38 kg/m2 [facility] Systolic blood pressure 2022-07-30 14:44:00 136 mm[Hg] [facility] Diastolic blood pressure 2022-07-30 14:44:00 85 mm[Hg] [facility] Heart rate 2022-07-30 14:44:00 64 /min [facility] Respiratory rate 2022-07-30 14:44:00 18 /min [facility] Body height 2022-07-30 14:44:00 147.3 cm [facility] Body weight 2022-07-30 14:44:00 61.326 kg [facility] BMI 2022-07-30 14:44:00 28.26 kg/m2 [facility] Body temperature 2022-04-22 15:12:00 35.83 Sarah [facility] Oxygen saturation in Arterial blood by Pulse oximetry 2022-04-22 15:12:00 98 /min [facility] Procedures Procedure Date / Time Performed Performing Clinician Source TRANSTHORACIC ECHO (TTE) COMPLETE 2024-04-27 14:30:32 Quentin Ruelas [facility] NOTICE OF BILLING PRACTICES FOR MEDICARE PATIENTS 2023-11-11 16:06:18 Doctor Unassigned, [place] [facility] NOTICE OF BILLING PRACTICES FOR MEDICARE PATIENTS 2023-11-11 16:06:18 Doctor Unassigned, [place] [facility] MEDICAL RELEASE/CLEARANCE FORMS 2023-07-15 05:01:00 Doctor Unassigned, [place] [facility] BASIC METABOLIC PANEL (NA, K, CL, CO2, GLUCOSE, BUN, CREATININE, CA) 2023-04-19 15:39:00 Quentin Ruelas [facility] HB ECG ROUTINE & RHYTHM STRIP 2023-04-19 15:13:36 Quentin Ruelas [facility] PATIENT FINANCIAL POLICY 2023-04-08 14:50:48 Doctor Unassigned, [place] [facility] ASSIGNMENT OF BENEFITS 2023-04-08 14:40:41 Docto r Unassigned, [place] [facility] CONSENT/REFUSAL FOR DIAGNOSIS AND TREATMENT 2023-04-08 14:40:23 Doctor Unassigned, [place] [facility] CONSENT/REFUSAL FOR DIAGNOSIS AND TREATMENT 2023-04-08 14:40:23 Doctor Unassigned, [place] [facility] CONSENT TO TREATMENT WITH PSYCHOACTIVE MEDICATION 2022-11-05 06:01:00 Doctor Unassigned, [place] [facility] AUTHORIZATION FOR RELEASE OF PHI 2022-05-28 05:01:00 Doctor Unassigned, [place] [facility] AUTHORIZATION FOR RELEASE OF PHI 2022-05-28 05:01:00 Doctor Unassigned, [place] [facility] EXTERNAL PROVIDER - ADC CARDIOLOGY 2022-05-19 05:01:00 Doctor Unassigned, [place] [facility] Encounters Start Date/Time End Date/Time Encounter Type Admission Type Attending [facility] Care Facility Care Department Encounter ID Source 2024-02-11 08:35:00 Outpatient MartiEvelyn [facility] [id number] [facility] 2024-02-09 13:47:00 [facility] [id number] [facility] 2023-09-16 16:14:00 [facility] [id number] [facility] 2023-07-29 13:50:00 [facility]amini [facility] [id number] [facility] 2023-07-13 13:07:00 Outpatient MartiJamini [facility] [id number] [facility] 2023-07-09 08:19:00 Outpatient KiddEvelyn thomas [facility] [id number] [facility] 2023-06-17 16:10:00 Outpatient KiddEvelyn thomas [facility] [id number] [facility] 2023-06-01 09:10:00 Outpatient KiddEvelyn thomas [facility] [id number] [facility] 2023-05-28 10:06:00 Outpatient KiddEvelyn thomas [facility] [id number] [facility] 2023-05-14 11:20:00 Outpatient Evelyn Kidd [facility] [id number] [facility] 2022-10-27 09:57:01 Outpatient ELIZABETH Na [facility] [id number] [facility] 2022-09-17 08:57:57 Outpatient [facility] [id number] [facility] 2022-08-18 10:51:01 Outpatient Elizabeth Na [facility] [id number] [facility] 2022-06-12 11:03:20 Outpatient [facility] [id number] [facility] 2022-06-10 14:11:00 Outpatient Elizabeth Na [facility] [id number] [facility] 2022-05-19 09:36:00 Outpatient Elizabeth Na [facility] [id number] [facility] 2022-05-15 09:16:00 Outpatient Johnson, Na [facility] [id number] [facility] 2022-02-24 08:31:00 Outpatient Elizabeth, Na [facility] [id number] [facility] 2021-11-18 10:14:00 Outpatient Luba Johnson [facility] [id number] [facility] 2021-10-22 14:31:18 Outpatient Luba Johnson [facility] [id number] [facility] 2021-10-22 13:56:02 Outpatient Luba Johnson [facility] [id number] [facility] 2021-10-22 13:55:16 Outpatient Luba Johnson [facility] [id number] [facility] 2021-10-22 13:05:24 Outpatient Luba Johnson [facility] [id number] [facility] 2021-10-22 12:39:24 Outpatient Luba Johnson [facility] [id number] [facility] 2021-10-22 12:38:50 Outpatient Luba Johnson [facility] [id number] [facility] 2021-10-22 12:05:48 Outpatient Luba Johnson [facility] [id number] [facility] 2021-10-22 11:37:26 Outpatient Luba Johnson [facility] [id number] [facility] 2024-05-08 00:00:00 2024-05-08 14:41:46 [facility] 1.2.840.114 350.1.13.10 4.2.7.2.686 [id number] [facility] 2024-04-28 00:00:00 2024-05-02 10:12:18 Telephone Quentin Ruelas [facility] 1.2.840.114 350.1.13.10 4.2.7.2.686 [id number] [facility] 2024-04-27 08:43:12 2024-04-27 23:59:00 [facility] [id number] 2024-04-27 08:43:12 2024-04-27 23:59:00 Hospital Encounter Suraj [facility] BUILDING 1.2.840.114 350.1.13.10 4.2.7.2.686 [id number] [facility] 2024-04-19 10:00:00 2024-04-19 10:00:00 [facility] [id number] [facility] 2024-04-17 13:00:00 2024-04-17 13:00:00 [facility] [id number] [facility] 2024-03-29 13:40:00 2024-03-29 13:44:59 Outpatient R SURAJ [facility] [id number] [facility] 2024-03-29 13:40:00 2024-03-29 13:44:59 Office Visit Suraj [facility] BUILDING 1.2.840.114 350.1.13.10 4.2.7.2.686 [id number] [facility] 2024-03-20 00:00:00 2024-03-20 15:44:15 Telephone Suraj [facility] BUILDING 1.2.840.114 350.1.13.10 4.2.7.2.686 [id number] [facility] 2024-03-07 00:00:00 2024-03-08 08:15:11 Telephone Suraj [facility] BUILDING 1.2.840.114 350.1.13.10 4.2.7.2.686 [id number] [facility] 2024-02-24 00:00:00 2024-02-24 14:00:03 [facility] 1.2.840.114 350.1.13.10 4.2.7.2.686 [id number] [facility] 2024-02-24 00:00:00 2024-02-24 13:11:40 [facility] 1.2.840.114 350.1.13.10 4.2.7.2.686 [id number] [facility] 2024-02-22 14:00:00 2024-02-22 14:20:00 [facility] 1.2.840.114 350.1.13.10 4.2.7.2.686 [id number] [facility] 2024-02-22 14:00:00 2024-02-22 14:00:00 Outpatient [facility] [id number] [facility] 2024-02-17 13:30:00 2024-02-17 13:30:00 Outpatient LISS HUNT [facility] [id number] [facility] 2024-02-17 00:00:00 2024-02-17 00:00:00 Travel 1.2.840.1 [id number] 3.104.2.7 .3.523897 .8 1.2.840.114 350.1.13.10 4.2.7.3.698 084.8 [id number] [facility] 2024-02-15 00:00:00 2024-02-15 00:00:00 (TEL) [facility] [id number] [facility] 2024-02-11 00:00:00 2024-02-11 00:00:00 OFFICE VISIT ESTAB PT LEVEL 4 [facility] [id number] [facility] 2024-02-11 00:00:00 2024-02-11 00:00:00 WELCOME TO MEDICARE PREV PHY EXAM [facility] [id number] [facility] 2024-01-24 00:00:00 2024-01-24 11:17:36 Refill Quentin Ruelas 1.2.840.1 58635.1.1 3.104.2.7 .3.822523 .8 [id number] [facility] 2023-11-11 10:00:00 2023-11-11 10:44:51 Outpatient TIANA AVENDANO [facility] [id number] [facility] 2023-11-11 00:00:00 2023-11-11 00:00:00 Orders Only Doctor Unassigned, [place] 1.2.840.1 84137.1.1 3.104.2.7 .3.825549 .8 [id number] [facility] 2023-11-11 00:00:00 2023-11-11 00:00:00 Travel 1.2.840.1 04333.1.1 3.104.2.7 .3.197542 .8 1.2.840.114 350.1.13.10 4.2.7.3.698 084.8 [id number] [facility] 2023-10-28 10:45:00 2023-10-28 10:45:00 Outpatient JOE MORENO [facility] [id number] [facility] 2023-10-08 12:45:00 2023-10-08 12:45:00 Outpatient HERMAN KAYE [facility] [id number] [facility] 2023-09-30 00:00:00 2023-09-30 00:00:00 NON-BILLAB LE VISIT [facility]LC [facility] [id number] [facility] 2023-09-14 00:00:00 2023-09-14 00:00:00 Refill Suraj Quentin 1.2.840.1 26056.1.1 3.104.2.7 .3.265947 .8 [id number] [facility] 2023-09-14 00:00:00 2023-09-14 00:00:00 (TEL) [facility] [id number] [facility] 2023-09-06 00:00:00 2023-09-06 00:00:00 (TEL) [facility] [id number] [facility] 2023-08-31 00:00:00 2023-08-31 00:00:00 NON-BILLAB LE VISIT [facility] [id number] [facility] 2023-08-12 00:00:00 2023-08-12 00:00:00 NON-BILLAB LE VISIT [facility]LC [facility] [id number] [facility] 2023-07-22 00:00:00 2023-07-22 00:00:00 (TEL) [facility] [id number] [facility] 2023-07-15 00:00:00 2023-07-15 00:00:00 Telephone Quentin Ruelas [facility] 1.2.840.114 350.1.13.10 4.2.7.2.686 [id number] [facility] 2023-07-15 00:00:00 2023-07-15 00:00:00 Telephone Quentin Ruelas [facility] 1.2.840.114 350.1.13.10 4.2.7.2.686 [id number] [facility] 2023-07-15 00:00:00 2023-07-15 00:00:00 Orders Only Doctor Unassigned, [place] [facility] 1.2.840.114 350.1.13.10 4.2.7.2.686 [id number] [facility] 2023-07-14 00:00:00 2023-07-14 00:00:00 (TEL) [facility]C [facility] [id number] [facility] 2023-07-13 00:00:00 2023-07-13 00:00:00 OFFICE VISIT ESTAB PT LEVEL 4 [facility]C [facility] [id number] [facility] 2023-07-13 00:00:00 2023-07-13 00:00:00 (TEL) [facility] [id number] [facility] 2023-07-13 00:00:00 2023-07-13 00:00:00 OFFICE VISIT ESTAB PT LEVEL 4 [facility]C [facility] [id number] [facility] 2023-07-13 00:00:00 2023-07-13 00:00:00 (TEL) [facility] [id number] [facility] 2023-07-09 15:45:00 2023-07-09 16:01:47 Outpatient HERMAN KAYE [facility] [id number] [facility] 2023-07-09 00:00:00 2023-07-09 00:00:00 Travel 1.2.840.1 54363.1.1 3.104.2.7 .3.256869 .8 1.2.840.114 350.1.13.10 4.2.7.3.698 084.8 [id number] [facility] 2023-07-08 10:00:00 2023-07-08 10:00:00 Outpatient JOE MORENO [facility] [id number] [facility] 2023-06-17 00:00:00 2023-06-17 00:00:00 (TEL) STLMLC [facility] [id number] [facility] 2023-06-15 00:00:00 2023-06-15 00:00:00 OFFICE VISIT NEW PT LEVEL 4 [facility]C [facility] [id number] [facility] 2023-06-15 00:00:00 2023-06-15 00:00:00 (TEL) [facility]C [facility] [id number] [facility] 2023-06-14 00:00:00 2023-06-14 00:00:00 Refill Quentin Ruelas 1..840.1 62343.1.1 3.104.2.7 .3.156216 .8 [id number] [facility] 2023-06-01 00:00:00 2023-06-01 00:00:00 OFFICE VISIT ESTAB PT LEVEL 4 [facility] [id number] [facility] 2023-05-14 00:00:00 2023-05-14 00:00:00 (TEL) [facility] [id number] [facility] 2023-04-29 00:00:00 2023-04-29 00:00:00 Telephone Quentin Ruelas 1.2.840.1 35084.1.1 3.104.2.7 .3.506574 .8 [id number] [facility] 2023-04-19 10:45:00 2023-04-19 10:47:16 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 Visit Quentin Ruelas 2, [facility] 1.2.840.1 85925.1.1 3.104.2.7 .3.152603 .8 [id number] [facility] 2023-04-19 10:20:00 2023-04-19 10:25:08 Outpatient R QUENTIN RUELAS [facility] [id number] [facility] 2023-04-19 10:20:00 2023-04-19 10:25:08 Office Visit Quentin Ruelas 1..840.1 15640.1.1 3.104.2.7 .3.597724 .8 [id number] [facility] 2023-04-19 00:00:00 2023-04-19 00:00:00 Patient Secure Msg Ruelas Quentin 1.2.840.1 99379.1.1 3.104.2.7 .3.646558 .8 [id number] [facility] 2023-04-19 00:00:00 2023-04-19 00:00:00 Travel 1.2.840.1 39259.1.1 3.104.2.7 .3.426275 .8 1.2.840.114 350.1.13.10 4.2.7.3.698 084.8 [id number] [facility] 2023-04-08 10:00:00 2023-04-08 10:30:04 Outpatient JOE MORENO [facility] [id number] [facility] 2023-04-08 00:00:00 2023-04-08 00:00:00 Orders Only Doctor Unassigned, [place] 1.2.840.1 95173.1.1 3.104.2.7 .3.059862 .8 [id number] [facility] 2023-04-08 00:00:00 2023-04-08 00:00:00 Travel 1.2.840.1 57859.1.1 3.104.2.7 .3.453322 .8 1.2.840.114 350.1.13.10 4.2.7.3.698 084.8 [id number] [facility] 2023-02-23 00:00:00 2023-02-23 00:00:00 Phillip Quentin Ruelas 1.2.840.1 01487.1.1 3.104.2.7 .3.230146 .8 [id number] [facility] 2023-02-18 08:30:00 2023-02-18 08:30:00 Outpatient R JOE WATKINS [facility] [id number] [facility] 2022-12-11 00:00:00 2022-12-11 00:00:00 Telephone Quentin Ruelas 1.2.840.1 00994.1.1 3.104.2.7 .3.087093 .8 [id number] [facility] 2022-12-02 14:40:00 2022-12-02 14:40:00 [facility] [id number] [facility] 2022-12-02 14:40:00 2022-12-02 14:40:00 Out[facility] [id number] [facility] 2022-12-02 14:40:00 2022-12-02 14:40:00 [facility] [id number] [facility] 2022-12-02 14:40:00 2022-12-02 14:40:00 [facility] [id number] [facility] 2022-11-05 10:45:00 2022-11-05 11:20:33 Outpatient R JOE WATKINS [facility] [id number] [facility] 2022-11-05 00:00:00 2022-11-05 00:00:00 Travel 1..840.1 73102.1.1 3.104.2.7 .3.231720 .8 1.2840.114 350.1.13.10 4.2.7.3.698 084.8 [id number] [facility] 2022-11-05 00:00:00 2022-11-05 00:00:00 Orders Only Doctor Unassigned, [place] [facility] 1.2.840.114 350.1.13.10 4.2.7.2.686 [id number] [facility] 2022-10-27 00:00:00 2022-10-27 00:00:00 (TEL) [facility]C [facility] [id number] [facility] 2022-10-15 10:45:00 2022-10-15 10:45:00 Outpatient JOE MORENO [facility] [id number] [facility] 2022-10-14 06:25:00 2022-10-14 15:54:00 Outpatient ERIN SAUNDERS [facility] [id number] [facility] 2022-09-18 14:15:00 2022-09-18 14:15:00 Outpatient CHAGO BRITT [facility] [id number] [facility] 2022-08-24 00:00:00 2022-08-24 00:00:00 RefQuentin Jaeger 1.2.840.1 71373.1.1 3.104.2.7 .3.762634 .8 [id number] [facility] 2022-08-24 00:00:00 2022-08-24 00:00:00 RefQuentin Jaeger 1.2.840.1 85788.1.1 3.104.2.7 .3.198543 .8 [id number] [facility] 2022-08-18 00:00:00 2022-08-18 00:00:00 OFFICE VISIT EST PT LEVEL 3 [facility]C [facility] [id number] [facility] 2022-07-30 10:00:00 2022-07-30 10:37:37 Outpatient JOE MORENO [facility] [id number] [facility] 2022-07-30 00:00:00 2022-07-30 00:00:00 Travel 1.2.840.1 33416.1.1 3.104.2.7 .3.743450 .8 1.2.840.114 350.1.13.10 4.2.7.3.698 084.8 [id number] [facility] 2022-06-03 06:53:00 2022-06-03 17:00:00 Outpatient ERIN SAUNDERS [facility] [id number] [facility] 2022-06-03 00:00:00 2022-06-03 00:00:00 (TEL) [facility]LMLC [facility] [id number] [facility] 2022-05-28 00:00:00 2022-05-28 00:00:00 Orders Only Doctor Unassigned, [place] 1.2.840.1 49011.1.1 3.104.2.7 .3.055476 .8 [id number] [facility] 2022-05-19 00:00:00 2022-05-19 00:00:00 Orders Only Doctor Unassigned, [place] 1.2.840.1 51234.1.1 3.104.2.7 .3.415942 .8 [id number] [facility] 2022-05-19 00:00:00 2022-05-19 00:00:00 (TEL) [facility]LMLC [facility] [id number] [facility] 2022-05-19 00:00:00 2022-05-19 00:00:00 (TEL) [facility]LMLC [facility] [id number] [facility] 2022-05-19 00:00:00 2022-05-19 00:00:00 OL DIG E/M SVC 11-20 MIN [facility]LC [facility] [id number] [facility] 2022-04-24 10:45:00 2022-04-24 11:53:48 Outpatient Javon MILAN SHANTHI [facility] [id number] [facility] 2022-04-24 00:00:00 2022-04-24 00:00:00 Travel 1.2.840.1 65703.1.1 3.104.2.7 .3.083482 .8 1.2.840.114 350.1.13.10 4.2.7.3.698 084.8 [id number] [facility] 2022-04-22 10:00:00 2022-04-22 10:25:09 [facility] [id number] [facility] 2022-04-22 10:00:00 2022-04-22 10:25:09 [facility] 1.2.840.114 350.1.13.10 4.2.7.2.686 [id number] [facility] 2022-04-22 10:00:00 2022-04-22 10:25:09 [facility] [id number] [facility] 2022-04-22 10:00:00 2022-04-22 10:00:00 Outpatient R [facility] [id number] [facility] 2022-04-22 00:00:00 2022-04-22 00:00:00 Travel 1.2.840.1 01929.1.1 3.104.2.7 .3.766308 .8 1.2.840.114 350.1.13.10 4.2.7.3.698 084.8 [id number] [facility] 2022-04-02 00:00:00 2022-04-02 00:00:00 (TEL) [facility]LC [facility] [id number] [facility] 2022-03-13 00:00:00 2022-03-13 00:00:00 (TEL) [facility]LC [facility] [id number] [facility] 2022-02-17 00:00:00 2022-02-17 00:00:00 Telephone Quentin Ruelas 1.2.840.1 05794.1.1 3.104.2.7 .3.985936 .8 [id number] [facility] 2022-02-17 00:00:00 2022-02-17 00:00:00 Telephone Quentin Ruelas 1.2.840.1 50627.1.1 3.104.2.7 .3.759556 .8 [id number] [facility] 2022-02-16 00:00:00 2022-02-16 00:00:00 Telephone Quentin Ruelas 1.2.840.1 50769.1.1 3.104.2.7 .3.807755 .8 [id number] [facility] 2022-02-16 00:00:00 2022-02-16 00:00:00 Refill Quentin Ruelas 1.2.840.1 49603.1.1 3.104.2.7 .3.074831 .8 [id number] [facility] 2022-02-16 00:00:00 2022-02-16 00:00:00 Refill Quentin Ruelas 1.2.840.1 68947.1.1 3.104.2.7 .3.370532 .8 [id number] [facility] 2022-02-16 00:00:00 2022-02-16 00:00:00 Telephone Quentin Ruelas 1.2.840.1 82569.1.1 3.104.2.7 .3.841010 .8 [id number] [facility] 2022-02-16 00:00:00 2022-02-16 00:00:00 PREV VISIT EST AGE 40-64 [facility] [id number] [facility] 2022-02-11 00:00:00 2022-02-11 00:00:00 (TEL) [facility] [id number] [facility] 2022-02-06 00:00:00 2022-02-06 00:00:00 Refill Quentin Ruelas 1.2.840.1 30363.1.1 3.104.2.7 .3.921139 .8 [id number] [facility] 2022-02-06 00:00:00 2022-02-06 00:00:00 RefQuentin Jaeger 1.2.840.1 24052.1.1 3.104.2.7 .3.791965 .8 [id number] [facility] 2022-01-28 14:45:00 2022-01-28 15:29:44 Office Visit Shantel Fernandez 1.2.840.1 43447.1.1 3.104.2.7 .3.249365 .8 [id number] [facility] 2022-01-28 14:45:00 2022-01-28 15:29:44 Office Visit Shantel Fernandez 1.2.840.1 02009.1.1 3.104.2.7 .3.827499 .8 [id number] [facility] 2022-01-28 14:45:00 2022-01-28 14:45:00 Outpatient R SHANTEL FERNANDEZ [facility] [id number] [facility] 2022-01-28 00:00:00 2022-01-28 00:00:00 Travel 1.2.840.1 14665.1.1 3.104.2.7 .3.626871 .8 1.2.840.114 350.1.13.10 4.2.7.3.698 084.8 [id number] [facility] 2022-01-28 00:00:00 2022-01-28 00:00:00 Travel 1.2.840.1 40041.1.1 3.104.2.7 .3.004005 .8 1.2.840.114 350.1.13.10 4.2.7.3.698 084.8 [id number] [facility] 2022-01-26 00:00:00 2022-01-26 00:00:00 Telephone Marty Jon 1.2.840.1 33807.1.1 3.104.2.7 .3.682405 .8 [id number] [facility] 2022-01-26 00:00:00 2022-01-26 00:00:00 Telephone Marty Jon [facility] 1.2.840.114 350.1.13.10 4.2.7.2.686 [id number] [facility] 2022-01-26 00:00:00 2022-01-26 00:00:00 Telephone Dontrell Marty 1.2.840.1 59487.1.1 3.104.2.7 .3.591707 .8 [id number] [facility] 2022-01-23 14:59:29 2022-01-23 23:59:00 Hospital Encounter Marty Jon 1.2.840.1 66507.1.1 3.104.2.7 .3.696730 .8 [id number] [facility] 2022-01-23 14:59:29 2022-01-23 23:59:00 Hospital Encounter Marty Jon [facility] 1.2.840.114 350.1.13.10 4.2.7.2.686 [id number] [facility] 2022-01-23 14:59:29 2022-01-23 23:59:00 Hospital Encounter Marty Jon 1.2.840.1 25937.1.1 3.104.2.7 .3.557303 .8 [id number] [facility] 2022-01-23 14:59:29 2022-01-23 14:59:29 Outpatient MARTY JON [facility] [id number] [facility] 2022-01-23 14:07:51 2022-01-23 14:58:00 Hospital Encounter Marty Jon 1.2.840.1 38083.1.1 3.104.2.7 .3.784684 .8 [id number] [facility] 2022-01-23 14:07:51 2022-01-23 14:58:00 Hospital Encounter Marty Jon [facility] 1.2.840.114 350.1.13.10 4.2.7.2.686 [id number] [facility] 2022-01-23 14:07:51 2022-01-23 14:58:00 Hospital Encounter Marty Jon 1.2.840.1 14305.1.1 3.104.2.7 .3.745603 .8 [id number] [facility] 2022-01-23 14:07:51 2022-01-23 14:07:51 Outpatient MARTY JON [facility] [id number] [facility] 2022-01-23 10:19:59 2022-01-23 14:06:00 Hospital Encounter Marty Jon 1.2.840.1 65072.1.1 3.104.2.7 .3.181042 .8 [id number] [facility] 2022-01-23 10:19:59 2022-01-23 14:06:00 Outpatient R MARTY JON [facility] [id number] [facility] 2022-01-23 10:19:59 2022-01-23 14:06:00 Hospital Encounter Dontrell Marty [facility] 1.2.840.114 350.1.13.10 4.2.7.2.686 [id number] [facility] 2022-01-23 10:19:59 2022-01-23 14:06:00 Hospital Encounter Marty Jon 1.2.840.1 67724.1.1 3.104.2.7 .3.737769 .8 [id number] [facility] 2022-01-23 10:19:59 2022-01-23 10:19:59 Outpatient DONTRELLSATRMARTY [facility] [id number] [facility] 2022-01-23 00:00:00 2022-01-23 00:00:00 Case Management DontrellMarty 1.2840.1 56188.1.1 3.104.2.7 .3.147226 .8 [id number] [facility] 2022-01-23 00:00:00 2022-01-23 00:00:00 Letter (Out) Doctor Unassigned, [place] 1.2840.1 45310.1.1 3.104.2.7 .3.458752 .8 [id number] [facility] 2022-01-23 00:00:00 2022-01-23 00:00:00 Letter (Out) Doctor Unassigned, [place] 1.2840.1 60311.1.1 3.104.2.7 .3.166759 .8 [id number] [facility] 2022-01-23 00:00:00 2022-01-23 00:00:00 Letter (Out) Doctor Unassigned, [place] [facility] 1..114 350.1.13.10 4.2.7.2.686 [id number] [facility] 2022-01-23 00:00:00 2022-01-23 00:00:00 Letter (Out) Doctor Unassigned, [place] [facility] 1.20.114 350.1.13.10 4.2.7.2.686 [id number] [facility] 2022-01-23 00:00:00 2022-01-23 00:00:00 Case Management Marty Jon [facility] 1.2840.114 350.1.13.10 4.2.7.2.686 [id number] [facility] 2022-01-23 00:00:00 2022-01-23 00:00:00 Case Management Marty Jon 1.2.840.1 [id number] 3.104.2.7 .3.130402 .8 [id number] [facility] 2022-01-23 00:00:00 2022-01-23 00:00:00 Letter (Out) Doctor Unassigned, [place] 1.2.840.1 01816.1.1 3.104.2.7 .3.962541 .8 [id number] [facility] 2022-01-23 00:00:00 2022-01-23 00:00:00 Letter (Out) Doctor Unassigned, [place] 1.2.840.1 72333.1.1 3.104.2.7 .3.410416 .8 [id number] [facility] 2022-01-22 20:23:20 2022-01-22 23:59:00 Outpatient R ELLI GAYLA [facility] [id number] [facility] 2022-01-22 20:23:20 2022-01-22 23:59:00 Hospital Encounter Elli [facility] 1..114 350.1.13.10 4.2.7.2.686 [id number] [facility] 2022-01-22 20:23:20 2022-01-22 23:59:00 Hospital Encounter Gayla Calloway 1.2840.1 65739.1.1 3.104.2.7 .3.735498 .8 [id number] [facility] 2022-01-22 20:20:00 2022-01-22 20:41:48 Urgent [place] [facility] 1.84.114 350.1.13.10 4.2.7.2.686 [id number] [facility] 2022-01-22 20:20:00 2022-01-22 20:41:48 Urgent Care Gayla Calloway 1.2.840.1 72422.1.1 3.104.2.7 .3.650151 .8 [id number] [facility] 2022-01-22 00:00:00 2022-01-22 00:00:00 Travel 1.2.840.1 52423.1.1 3.104.2.7 .3.010060 .8 1.2.840.114 350.1.13.10 4.2.7.3.698 084.8 [id number] [facility] 2021-12-11 00:00:00 2021-12-11 00:00:00 [facility].114 350.1.13.10 4.2.7.2.686 [id number] [facility] 2021-12-02 14:20:00 2021-12-02 15:05:47 [id number] 2021-12-02 14:20:00 2021-12-02 15:05:47 [facility] 1.2840.114 350.1.13.10 4.2.7.2.686 [id number] [facility] 2021-12-02 14:20:00 2021-12-02 15:05:47 [facility] [id number] [facility] 2021-12-02 00:00:00 2021-12-02 00:00:00 Orders Only Doctor Unassigned, [place] [facility] 1.2840.114 350.1.13.10 4.2.7.2.686 [id number] [facility] 2021-11-28 08:30:00 2021-11-28 09:26:07 Outpatient Javon SHEYLA HERMAN [facility] [id number] [facility] 2021-11-28 08:30:00 2021-11-28 08:30:00 Outpatient Javon CARRION HERMAN [facility] [id number] [facility] 2021-11-28 00:00:00 2021-11-28 00:00:00 Travel 1.2.840.1 67409.1.1 3.104.2.7 .3.957183 .8 1.2.840.114 350.1.13.10 4.2.7.3.698 084.8 [id number] [facility] 2021-11-18 00:00:00 2021-11-18 00:00:00 OFFICE VISIT ESTAB PT LEVEL 4 STLMLC ST[facility]C [id number] [facility] 2021-09-11 10:45:00 2021-09-11 11:18:14 Outpatient CE GRANT [facility] [id number] [facility] 2021-09-11 10:45:00 2021-09-11 10:45:00 Outpatient CE GRANT [facility] [id number] [facility] 2021-09-11 00:00:00 2021-09-11 00:00:00 Travel 1.2.840.1 74753.1.1 3.104.2.7 .3.369097 .8 1.2.840.114 350.1.13.10 4.2.7.3.698 084.8 [id number] [facility] 2021-08-14 10:45:00 2021-08-14 11:50:16 Outpatient JOE MORENO [facility] [id number] [facility] 2021-08-14 00:00:00 2021-08-14 00:00:00 Travel 1.2.840.1 28450.1.1 3.104.2.7 .3.166530 .8 1.2.840.114 350.1.13.10 4.2.7.3.698 084.8 [id number] [facility] 2021-08-14 00:00:00 2021-08-14 00:00:00 Orders Only Doctor Unassigned, [place] 1.2.840.1 81059.1.1 3.104.2.7 .3.286414 .8 [id number] [facility] 2021-06-30 00:00:00 2021-06-30 00:00:00 OFFICE VISIT EST PT LEVEL 3 STLMLC STLMLC [id number] [facility] 2021-06-24 00:00:00 2021-06-24 00:00:00 Quentin Dueñas 1.2.840.1 90758.1.1 3.104.2.7 .3.454418 .8 [id number] [facility] 2021-05-23 09:15:00 2021-05-23 09:15:00 Outpatient SHANTHI VERDIN [facility] [id number] [facility] 2021-05-23 00:00:00 2021-05-23 00:00:00 Travel 1.2.840.1 64268.1.1 3.104.2.7 .3.279444 .8 1.2.840.114 350.1.13.10 4.2.7.3.698 084.8 [id number] [facility] 2021-04-09 00:00:00 2021-04-09 00:00:00 (TEL) STLMLC STLMLC [id number] [facility] 2021-03-28 00:00:00 2021-03-28 00:00:00 OFFICE VISIT EST PT LEVEL 3 STLMLC STLMLC [id number] [facility] 2020-12-30 10:00:00 2020-12-30 10:00:00 Outpatient QUENTIN SORENSEN [facility] [id number] [facility] 2020-12-18 00:00:00 2020-12-18 00:00:00 Outpatient STLMLC STLMLC [id number] [facility] 2020-12-13 00:00:00 2020-12-13 00:00:00 Outpatient STLMLC STLMLC [id number] [facility] 2020-12-06 00:00:00 2020-12-06 00:00:00 Outpatient STLMLC STLMLC [id number] [facility] 2020-12-06 00:00:00 2020-12-06 00:00:00 Outpatient STLMLC STLMLC [id number] [facility] 2020-12-02 09:20:00 2020-12-02 09:20:00 Outpatient QUENTIN SORENSEN [facility] [id number] [facility] 2020-10-31 10:00:00 2020-10-31 10:00:00 Outpatient JOE MORENO [facility] [id number] [facility] 2020-10-03 00:00:00 2020-10-03 00:00:00 Outpatient STLMLC STLMLC [id number] [facility] 2020-08-15 00:00:00 2020-08-15 00:00:00 Outpatient STLMLC STLMLC [id number] [facility] 2020-06-04 14:00:00 2020-06-04 14:00:[address] [facility] [facility] [id number] [facility] 2020-05-31 10:08:00 2020-05-31 10:08:00 [address] [facility] [address] [facility] [id number] [facility] 2020-05-17 09:15:00 2020-05-17 09:15:00 Outpatient JOE MORENO [facility] [id number] [facility] 2020-05-14 16:00:00 2020-05-14 16:00:00 [facility] [id number] [facility] 2020-05-09 09:15:00 2020-05-09 09:15:00 Outpatient HERMAN KAYE [facility] [id number] [facility] 2020-04-24 09:05:00 2020-04-24 09:05:[address] [facility] [id number] [facility] 2020-04-23 10:53:00 2020-04-23 10:53:00 [address] [facility] [facility] [id number] [facility] 2020-03-14 10:00:00 2020-03-14 10:00:00 Outpatient HERMAN KAYE [facility] [id number] [facility] 2020-01-23 10:30:00 2020-01-23 10:30:00 [facility] [id number] [facility] 2020-01-19 16:03:00 2020-01-19 16:03:00 [facility] [facility] [id number] [facility] 2020-01-11 10:00:00 2020-01-11 10:00:00 Outpatient HERMAN KAYE [facility] [id number] [facility] 2019-12-07 09:15:00 2019-12-07 09:15:00 Outpatient HERMAN KAYE [facility] [id number] [facility] 2019-11-29 14:40:00 2019-11-29 14:40:00 Outpatient QUENTIN SORENSEN [facility] [id number] [facility] 2019-07-27 16:30:00 2019-07-27 16:30:[address] [facility] [id number] [facility] 2019-07-18 08:20:00 2019-07-18 08:20:00 [facility] [facility] [id number] [facility] 2019-04-14 10:40:00 2019-04-14 10:40:00 [facility] [id number] [facility] 2019-02-27 16:40:00 2019-02-27 16:40:00 [facility] [id number] [facility] 2018-09-15 08:45:00 2018-09-15 08:45:00 [facility] [id number] [facility] 2018-06-16 10:30:00 2018-06-16 10:30:00 [facility] [id number] [facility] 2018-03-16 10:30:00 2018-03-16 10:30:00 Outpatient [facility] [id number] [facility] Results Test Description Test Time Test Comments Results Result Co mments Source [facility] W/AUTO [id number] 00:00:00* Test Item Value Reference Range Interpretation Comme nts NUCLEATED RBCS (test code = 32119-9) 0.0 /100 WBC'S See_Comment [Automated messa ge] The system which generated this result transmitted reference range: 0.0 /100 WBC'S. The reference range was not used to interpret this result as normal/abnormal. ABSOLUTE EOSINOPHILS (test code = 04272-5) 0.29 K/UL See_Comment [Automated messa ge] The system which generated this result transmitted reference range: 0.00-0.50 K/UL. The reference range was not used to interpret this result as normal/abnormal. ABSOLUTE LYMPHOCYTES (test code = 48817-5) 1.86 K/UL See_Comment [Automated messa ge] The system which generated this result transmitted reference range: 1.00-4.00 K/UL. The reference range was not used to interpret this result as normal/abnormal. ABSOLUTE MONOCYTES (test code = 26637-7) 0.57 K/UL See_Comment [Automated messa ge] The system which generated this result transmitted reference range: 0.20-1.00 K/UL. The reference range was not used to interpret this result as normal/abnormal. ABSOLUTE NEUTROPHILS (test code = 09977-2) 5.99 K/UL See_Comment [Automated messa ge] The system which generated this result transmitted reference range: 1.50-7.50 K/UL. The reference range was not used to interpret this result as normal/abnormal. BASOPHILS (test code = 56754-9) 1.5 % EOSINOPHILS (test code = 94673-4) 3.3 % HEMATOCRIT (test code = 19711-9) 44.8 % See_Comment [Automated messa ge] The system which generated this result transmitted reference range: 34.0-45.0 %. The reference range was not used to interpret this result as normal/abnormal. HEMOGLOBIN (test code = 718-7) 15.3 G/DL See_Comment [Automated messa ge] The system which generated this result transmitted reference range: 11.5-15.5 G/DL. The reference range was not used to interpret this result as normal/abnormal. LYMPHOCYTES (test code = 20107-1) 20.9 % MCH (test code = 51235-3) 32.5 PG See_Comment [Automated messa ge] The system which generated this result transmitted reference range: 25.0-33.0 PG. The reference range was not used to interpret this result as normal/abnormal. MCHC (test code = 16264-1) 34.2 G/DL See_Comment [Automated messa ge] The system which generated this result transmitted reference range: 31.0-36.0 G/DL. The reference range was not used to interpret this result as normal/abnormal. MCV (test code = 01410-4) 95.1 fL See_Comment [Automated messa ge] The system which generated this result transmitted reference range: 80.0-99.0 fL. The reference range was not used to interpret this result as normal/abnormal. MONOCYTES (test code = 93287-4) 6.4 % NEUTROPHILS (test code = 53789-2) 67.1 % PLATELET COUNT (test code = 61497-8) 290 K/UL See_Comment [Automated messa ge] The system which generated this result transmitted reference range: 130-400 K/UL. The reference range was not used to interpret this result as normal/abnormal. RBC (test code = 05973-8) 4.71 M/UL See_Comment [Automated [employer] ge] The system which generated this result transmitted reference range: 3.80-5.40 M/UL. The reference range was not used to interpret this result as normal/abnormal. RDW (test code = 66387-6) 13.2 % See_Comment [Automated [employer] ge] The system which generated this result transmitted reference range: 11.5-15.0 %. The reference range was not used to interpret this result as normal/abnormal. WBC (test code = 00468-0) 8.9 K/UL See_Comment [Automated [employer]] The system which generated this result transmitted reference range: 3.5-11.0 K/UL. The reference range was not used to interpret this result as normal/abnormal. HEMOGLOBIN [id number] 00:00:00* Test Item Value Reference Range Interpretation [facility] HEMOGLOBIN A1c (test code = 4548-4) 5.6 % See_Comment [Automated [employer] ge] The system which generated this result transmitted reference range: 4.2-5.6 %. The reference range was not used to interpret this result as normal/abnormal. VITAMIN D,1,64-[id number] 00:00:00* Test Item Value Reference Range Interpretation [facility] VITAMIN D,1,25-DIHYDROXY (test code = 1649-3) 41.3 PG/ML See_Comment [Automated message] The system which generated this result transmitted reference range: 20.0-82.0 PG/ML. The reference range was not used to interpret this result as normal/abnormal. LIPID PANEL WITH REFLEX DIRECT [id number] 00:00:00* Test Item Value Reference Range Interpretation [facility] CALC LDL CHOL (test code = 80633-4) 80 MG/DL See_Comment [Automated [employer]] The system which generated this result transmitted reference range: <100 MG/DL. The reference range was not used to interpret this result as normal/abnormal. CHOLESTEROL (test code = 2093-3) 147 MG/DL See_Comment [Automated [employer]] The system which generated this result transmitted reference range: <200 MG/DL. The reference range was not used to interpret this result as normal/abnormal. HDL CHOLESTEROL (test code = 2085-9) 41 MG/DL See_Comment [Automated messa ge] The system which generated this result transmitted reference range: >39 MG/DL. The reference range was not used to interpret this result as normal/abnormal. RISK RATIO LDL/HDL (test code = 15200-2) 1.95 RATIO See_Comment [Automated message] The system which generated this result transmitted reference range: <3.22 RATIO. The reference range was not used to interpret this result as normal/abnormal. TRIGLYCERIDES (test code = 2571-8) 161 MG/DL See_Comment H [Automated messa ge] The system which generated this result transmitted reference range: <150 MG/DL. The reference range was not used to interpret this result as normal/abnormal. COMPREHENSIVE METABOLIC [id number] 00:00:00* Test Item Value Reference Range Interpretation Comme nts ALBUMIN (test code = 1751-7) 4.2 G/DL See_Comment [Automated messa ge] The system which generated this result transmitted reference range: 3.5-5.2 G/DL. The reference range was not used to interpret this result as normal/abnormal. ALKALINE PHOSPHATASE (test code = 6768-6) 106 U/L See_Comment [Automated message] The system which generated this result transmitted reference range: 40-142 U/L. The reference range was not used to interpret this result as normal/abnormal. BILIRUBIN, TOTAL (test code = 1975-2) 0.2 MG/DL See_Comment [Automated message] The system which generated this result transmitted reference range: <=1.2 MG/DL. The reference range was not used to interpret this result as normal/abnormal. BUN (test code = 3094-0) 14 MG/DL See_Comment [Automated messa ge] The system which generated this result transmitted reference range: 8-23 MG/DL. The reference range was not used to interpret this result as normal/abnormal. CALCIUM (test code = 71179-5) 9.8 MG/DL See_Comment [Automated [employer] ge] The system which generated this result transmitted reference range: 8.5-10.5 MG/DL. The reference range was not used to interpret this result as normal/abnormal. CALC A/G RATIO (test code = 1759-0) 2.0 RATIO See_Comment [Automated messa ge] The system which generated this result transmitted reference range: 1.0-2.6 RATIO. The reference range was not used to interpret this result as normal/abnormal. CALC BUN/CREAT (test code = 3097-3) 15 RATIO See_Comment [Automated messa ge] The system which generated this result transmitted reference range: 6-28 RATIO. The reference range was not used to interpret this result as normal/abnormal. CALC GLOBULIN (test code = 45752-7) 2.1 G/DL See_Comment [Automated messa ge] The system which generated this result transmitted reference range: 1.9-3.7 G/DL. The reference range was not used to interpret this result as normal/abnormal. CARBON DIOXIDE (test code = 1963-8) 27 MEQ/L See_Comment [Automated messa ge] The system which generated this result transmitted reference range: 19-31 MEQ/L. The reference range was not used to interpret this result as normal/abnormal. CHLORIDE (test code = 2075-0) 104 MEQ/L See_Comment [Automated messa ge] The system which generated this result transmitted reference range: 95-107 MEQ/L. The reference range was not used to interpret this result as normal/abnormal. CREATININE (test code = 2160-0) 0.95 MG/DL See_Comment [Automated messa ge] The system which generated this result transmitted reference range: 0.60-1.30 MG/DL. The reference range was not used to interpret this result as normal/abnormal. eGFR (2020 CKD-EPI) (test code = 06578-7) 66 ML/MIN/1.73 See_Comment [Automated messa ge] The system which generated this result transmitted reference range: >60 ML/MIN/1.73. The reference range was not used to interpret this result as normal/abnormal. GLUCOSE (test code = 1558-6) 124 MG/DL See_Comment H [Automated messa ge] The system which generated this result transmitted reference range: 70-99 MG/DL. The reference range was not used to interpret this result as normal/abnormal. POTASSIUM (test code = 2823-3) 5.0 MEQ/L See_Comment [Automated messa ge] The system which generated this result transmitted reference range: 3.5-5.4 MEQ/L. The reference range was not used to interpret this result as normal/abnormal. PROTEIN, TOTAL (test code = 2885-2) 6.3 G/DL See_Comment [Automated messa ge] The system which generated this result transmitted reference range: 6.1-8.3 G/DL. The reference range was not used to interpret this result as normal/abnormal. AST (test code = 1920-8) 19 U/L See_Comment [Automated messa ge] The system which generated this result transmitted reference range: 9-40 U/L. The reference range was not used to interpret this result as normal/abnormal. ALT (test code = 1742-6) 17 U/L See_Comment [Automated messa ge] The system which generated this result transmitted reference range: 5-40 U/L. The reference range was not used to interpret this result as normal/abnormal. SODIUM (test code = 2951-2) 141 MEQ/L See_Comment [Automated messa ge] The system which generated this result transmitted reference range: 133-146 MEQ/L. The reference range was not used to interpret this result as normal/abnormal. 3D SCR VIKAS BILAT W/CAD3D SCR VIKAS BILAT W/CADMRI Knee Right Wo ContMRI Knee Right Wo Cont Notes Date/Time Note Provider Source 2024-05-08 14:38:28 Spoke with patient. For the past several days her BP has been elevated 180s-190s/100-120. Patient states Dr. Ruelas had placed her on amlodipine which caused her BP to drop to low. The amlodipine was stopped and ever since her BP has been creeping upward. She is not having any chest pain or shortness of breath but she does report feeling fatigued and sweaty. She is not lightheaded. Her HR is 80s-90s. BP were taken when she was relaxed. Advised patient to go to the ER. She is agreeable. She feels safe to drive herself. Advised patient to call to schedule a follow up after being seen in the ER. Molly Carranza RN [facility] 2024-05-08 14:22:35 Yoseph Israel is a 68 year old female Pts bp is currently 200/100. She said her bottom number has been high over the last several days. She thinks it may be due to medication Please advise Sophia Moseley [facility] 2024-05-02 10:11:55 Spoke with patient. Echo results given. Pt pleased and verbally understood. Emmanuel Dalton MA [facility] 2024-04-28 14:18:05 Yoseph Israel is a 68 year old female Pt returning JP Shane's call. Was unable to connect to JP Shane. Please advise Please call at [phone] Lilibeth Clark [facility] 2024-04-28 14:12:21 Images from the original note were not included. Attempted to contact patient with results/recommendations. LVM for patient to return call to [phone]., Quentin Ruelas MD P Cardiology Nurse Echo showed ejection fraction remains normal. Continue medications. Svitlana Chairez MA [facility] 2024-03-20 15:42:[address] Menard's reponse to STOP Amlodipine. Verbalized understanding, will continue to monitor BP and will contact clinic if becomes elevated. Has appointment next week in clinic Bethany Rosario RN [facility] 2024-03-20 15:36:32 Stop amlodipine [facility] 2024-03-20 14:36:[address] Ruelas for advice [facility] 2024-03-20 13:07:49 Copied from [facility] #[id number]. Topic: Clinical - Medical Advice >> Mar 20, 2024 1:03 PM Patient Kennel Worker wrote: Yoseph Israel is a 68 year old female Pt is calling in stating that the amLODIPine 10 mg tablet is making her systolic BP drop below 100 which is happening in the evenings and she wants to know can she stop taking taking the medication. Pt gave her weekly BP readings:states the lowest was 03/18/24 86/53 93/57 PM 100/60 98/51 94/57 91/56 Pt states her morning readings are still a little lower than normal and her feel are still swelling. Please advise. Elis Alaniz [facility] 2024-03-08 08:11:45 Spoke with patient. She states that she noted ankle swelling for about 2 days. Now she states the ankle swelling is starting to subside after elevating her legs. She states she had pizza for dinner the other night which she thinks may have been too much sodium. She states her BP has been improving after KAREN, averaging around 145/90. Advised patient to continue leg elevation and monitor at home. Advised her to call the clinic if ankle swelling persists or gets worse. Patient verbalized understanding. Molly Carranza RN [facility] 2024-03-07 14:38:39 Patient called to let provider know that he is currently experiencing ankle swelling. She states she was advised by provider to update him on any swelling that may occur Lindsey Curtis [facility] 2024-02-24 13:28:53 Yoseph Israel is a 68 year old female patient calling was told to follow up with Dr. Ruelas in one month from 02/22/24 visit. Please call [phone] Roxy Brenner [facility] 2024-02-24 13:11:23 Patient has been rescheduled to same day as appt with suraj Shyanne Plummer [facility] 2024-02-24 12:40:57 Copied from [facility] #[id number]. Topic: Appointment - Reschedule Appointment >> February 24, 2024 12:39 PM Patient Kennel Worker wrote: Yoseph Israel is a 68 year old female Pt calling to r/s echo for [place] location. Pt would like appt. to be the same day as her f/u on 04/19/24 after 1120am. Please advise. Edgar Shaw [facility] 2024-01-24 11:17:31 Images from the original note were not included. Refill approved per cardiology protocol: Cardiovascular: Beta Blockers Tuzlpj0101/24/2024 11:05 AM Protocol Details Valid encounter within last 12 months Heart rate within normal limits and completed in the last 12 months Sun Smith MA [facility] 2023-06-14 13:14:40 Formatting of this n ote is different from the original. Images from the original note were not included. Refill approved per cardiology protocol: Cardiovascular: ?Beta Blockers Passed 06/14/2023 11:27 AM Protocol Details Valid encounter within last 12 months Heart rate within normal limits and completed in the last 12 months Sun Smith MA [facility] 2023-04-29 09:27:48 Formatting of this n ote might be different from the original. Results shared, verbalized understanding Bethany Rosario RN [facility] 2023-04-19 10:45:00 Formatting of this n ote is different from the original. Images from the original note were not included. Venipuncture collection performed by clean technique on the left anticubitus. Total of 1 attempts were made. Slight pressure and a bandage/dressing were applied to the site(s). The patient experienced no complications. The following specimens were processed according to instructions and sent to [facility] laboratories per lab order on 04/19/2023 : LT BLUE SST 1 RED LAV PPT DK GREEN (LiHep) DK GREEN (SodH) WONG DK BLUE (K2) DK BLUE (S) ACD Blood Culture NIPT/NTD [facility]
[2024-05-08] MEDS ORDERED: AMLODIPINE 10 MG TAB ONE (16:50)
[2024-05-08 17:05] LABS: Absolute Basophils 0.1 K/uL (0-0.5); Absolute Eosinophils 0.3 K/uL (0-0.5); Absolute Lymphocytes (CBC) 1.9 K/uL (0.7-4.9); Absolute Monocytes 0.7 K/uL (0.1-1.3); Absolute Neutrophil 6.8 K/uL (1.8-8.0); Basophils % 0.9 % (0-1.3); Eosinophils % 2.6 % (0-4.4); Hematocrit 41.5 % (36.0-45.0); Hemoglobin 14.2 g/dL (12.0-15.0); Lymphocytes % 19.4 % (15.3-44.8); MCH 34.5 pg (27.0-35.0); MCHC 34.1 g/dL (32.0-36.0); MPV 8.4 fL (7.6-11.3); Monocytes % 6.7 % (3.3-12.3); Neutrophils % 70.4 % (41.7-73.7); Nucleated Red Blood Cells % 0.1 % (0-0); Platelets 198 thou/uL (152-406); RBC Red Blood Cell Count 4.11 M/uL (3.86-4.86); Red Cell Distribution Width 14.2 % (12.1-15.2)
--- NOTE | 2024-05-08 17:24 | RAD REPORT ---
EXAM DESCRIPTION: CT - Head Brain Wo Cont - 05/08/2024 5:10 pm CLINICAL HISTORY: Headache COMPARISON: None TECHNIQUE: Computed axial tomography of the head was obtained. IV contrast was not requested. All CT scans are performed using dose optimization technique as appropriate and may include automated exposure control or mA/KV adjustment according to patient size. FINDINGS: An intracranial bleed is not seen The ventricles are normal in caliber No extra-axial fluid collection is noted. Mild to moderate low-density areas within periventricular, deep and subcortical white matter likely r epresent ischemic changes secondary to small vessel disease. Fluid within the sinuses/ mastoids is not seen. IMPRESSION: No acute intracranial abnormality is seen If patient's symptoms persist MRI of the brain would be recommended
[2024-05-08 17:35] LABS: Albumin 3.5 g/dL (3.4-5.0); Anion Gap 8.8 mEq/L (5.0-15.0); Bilirubin Direct 0.2 mg/dL (0-0.2); Bilirubin Indirect, Calculated 0.2 mg/dL (0.2-0.8); Bilirubin Total 0.4 mg/dL (0.2-1.0); Globulin 3.4 g/dL (2.3-3.5); Magnesium 1.7 mg/dL (1.6-2.4); Potassium 2.8 mEq/L (3.5-5.1); Protein, Total 6.9 g/dL (6.4-8.2); Troponin High Sensitivity 23.4 pg/mL (<58.9)
[2024-05-08] MEDS ORDERED: HYDRALAZINE HCL 20 MG/ML VIAL ONE ×2 (18:20→21:45)
[2024-05-08] MEDS ORDERED: POTASSIUM 25 MEQ EFFERV TAB ONE (18:20)
[2024-05-08] MEDS ORDERED: NA CHLORIDE 0.9% 500 ML ONE (18:20)
--- NOTE | 2024-05-08 23:04 | EDPHYS ---
Physician Documentation [facility] Name: Michelle Carlson Age: 68 yrs Sex: Female : 1955 Arrival Date: 05/08/2024 Time: 15:23 Bed 6 Private MD: ED Physician Harley Jim HPI: 05/08 16:15 This 68 yrs old Female presents to ER via Ambulatory with complaints of High Blood cp Pressure. 16:15 The patient has elevated blood pressure and discovered this at home. Onset: The cp symptoms/episode began/occurred today. 16:15 Associated signs and symptoms: Pertinent positives: headache. cp Historical: - Allergies: 16:05 PENICILLINS; cm10 - PMHx: 16:05 Hypertensive disorder; Myocardial infarction; Hypercholesterolemia; cm10 - PSHx: 16:05 Total abdominal hysterectomy; cm10 - Immunization history:: Adult Immunizations up to date. - Infectious Disease History:: Denies. - Social history:: Smoking status: Patient denies any tobacco usage or history of. ROS: 16:20 Constitutional: Negative for body aches, chills, fever, poor PO intake, cp 16:20 Eyes: Negative for injury, pain, redness, and discharge, cp 16:20 ENT: Negative for drainage from ear(s), ear pain, difficulty swallowing, difficulty handling secretions, 16:20 Cardiovascular: Negative for chest pain, edema, palpitations, 16:20 Respiratory: Negative for cough, shortness of breath, wheezing, 16:20 Abdomen/GI: Negative for abdominal pain, vomiting, diarrhea, constipation, 16:20 Neuro: Positive for headache, Negative for altered mental status, gait disturbance, weakness, Exam: 16:25 Constitutional: The patient appears in no acute distress, alert, awake, cp non-diaphoretic, non-toxic, well developed, well nourished, 16:25 Head/Face: Normocephalic, atraumatic. cp 16:25 Eyes: Periorbital structures: appear normal, Pupils: equal, round, and reactive to light and accomodation, Extraocular movements: intact throughout, Conjunctiva: normal, no exudate, no injection, Sclera: no appreciated abnormality, Lids and lashes: appear normal, bilaterally, 16:25 ENT: External ear(s): are unremarkable, Nose: is normal, Mouth: Lips: moist, Oral mucosa: pink and intact, moist, Posterior pharynx: Airway: no evidence of obstruction, patent, 16:25 Chest/axilla: Inspection: normal, 16:25 Cardiovascular: Rate: normal, Rhythm: regular, 16:25 Respiratory: the patient does not display signs of respiratory distress, Respirations: normal, no use of accessory muscles, no retractions, labored breathing, is not present, Breath sounds: are clear throughout, no decreased breath sounds, no stridor, no wheezing, 16:25 Abdomen/GI: Exam negative for discomfort, distension, guarding, Inspection: abdomen appears normal, 16:25 Neuro: Orientation: to person, place \T\ time. Mentation: is normal, Motor: moves all fours, strength is normal, Sensation: no obvious gross deficits, Gait: is steady, at a normal pace, without difficulty, 18:45 ECG was reviewed by the Attending Physician. cp Vital Signs: 16:03 BP 188 / 106; Pulse 91; Resp 18; Temp 98.8; Pulse Ox 95% on R/A; Weight 56.7 kg; Height cm10 4 ft. 10 in. ; Pain 2/10; 16:51 BP 200 / 101; Pulse 88; nj1 18:25 BP 196 / 111; Pulse 80; Resp 17; Pulse Ox 98% on R/A; rs5 21:43 BP 173 / 112; Pulse 98; Pulse Ox 98% ; jm12 22:41 BP 154 / 92; Pulse 102; Resp 16; Pulse Ox 100% ; jm12 16:03 Body Mass Index 26.12 (56.70 kg, 147.32 cm) cm10 16:03 Pain Scale: Adult cm10 MDM: 16:08 Patient medically screened. cp 23:03 Data reviewed: vital signs, nurses notes, lab test result(s), EKG, radiologic studies, sb4 and as a result, I will discharge patient. Counseling: I had a detailed discussion with the patient and/or guardian regarding the historical points, exam findings, and any diagnostic results supporting the discharge/admit diagnosis, the presence of at least one elevated blood pressure reading (>120/80) during this emergency department visit, lab results, radiology results, to return to the emergency department if symptoms worsen or persist or if there are any questions or concerns that arise at home. 05/08 16:09 Order name: Basic Metabolic Panel; Complete Time: 17:49 cp 08/12 17:49 Interpretation: Normal except: K 2.8; GLUC 127; BUN 22; GFR 71. 08/12 16:09 Order name: CBC with Diff; Complete Time: 17:49 cp 08/12 16:09 Order name: LFT's; Complete Time: 17:49 cp 08/12 17:49 Interpretation: Normal except: AST 99; ALT 114; ALK 138; A/G 1.0. 08/12 16:09 Order name: Magnesium; Complete Time: 17:49 cp 08/12 16:09 Order name: Troponin HS; Complete Time: 17:49 08/12 16:09 Order name: CT Head Brain wo Cont; Complete Time: 17:49 08/12 16:09 Order name: Cardiac monitoring; Complete Time: 18:41 08/12 16:09 Order name: EKG - Nurse/Tech; Complete Time: 18:41 08/ 16:09 Order name: IV Saline Lock; Complete Time: 16:59 08/12 16:09 Order name: Labs collected and sent; Complete Time: 16:59 08/12 16:09 Order name: O2 Per Protocol 08/12 16:09 Order name: O2 Sat Monitoring; Complete Time: 18:41 cp EC:45 Rate is 92 beats/min. Rhythm is regular. [place] interval is normal. QRS interval is normal. cp QT interval is normal. T waves are Inverted in lead aVR. Interpreted by me. Reviewed by me. Administered Medications: 16:58 Drug: amLODIPine PO 10 mg PO once Route: PO; [facility] 18:30 Drug: NS 0.9% IV 500 ml IV at calculated rate continuous Route: IV; Rate: calculated rs5 rate; Site: right antecubital; 23:23 Follow up: IV Status: Completed infusion; IV Intake: 500ml [facility] 18:30 Drug: Potassium PO Effervescent Tablet 50 mEq PO once; dissolve in 4 ounces of water or rs5 juice Route: PO; 18:40 Drug: hydrALAZINE IVP 10 mg IVP once Route: IVP; Site: right antecubital; rs5 23:23 Follow up: Response: No adverse reaction; Marked relief of symptoms [facility] 22:04 Drug: hydrALAZINE IVP 10 mg IVP once Route: IVP; Site: left forearm; jm12 Disposition Summary: 05/08/24 23:03 Discharge Ordered Notes: Location: Home sb4 Problem: new sb4 Symptoms: have improved sb4 Condition: Stable sb4 Diagnosis - Essential (primary) hypertension sb4 Followup: sb4 - With: Private Physician - When: 2 - 3 days - Reason: Recheck today's complaints, Re-evaluation by your physician Discharge Instructions: - Discharge Summary Sheet sb4 - Hypertension, Adult sb4 Forms: - Patient Portal Instructions sb4 - Leadership Thank You Letter sb4 Signatures: Dispatcher [employer] EDMS Kishor George PA PA cp Brown, Sophia, PA-C PAJohn sb4 Matty Rachel, RN RN rs5 Hina Ortiz RN RN nj1 Domenica Quintero RN RN cm10 Judi Grady RN RN jm12 Corrections: (The following items were deleted from the chart) 16:05 16:05 Allergies: Tetanus Vaccines \T\ Toxoid; cm10 cm10 16:09 16:09 BASIC METABOLIC PANEL+C.LAB.BRZ ordered. EDMS EDMS 16:09 16:09 CBC+H.LAB.BRZ ordered. EDMS EDMS 16:09 16:09 HEPATIC FUNCTION+C.LAB.BRZ ordered. EDMS EDMS 16:09 16:09 MAGNESIUM+C.LAB.BRZ ordered. EDMS EDMS 16:09 16:09 Troponin High Sensitivity+C.LAB.BRZ ordered. EDMS EDMS 16:09 16:09 Urinalysis W/Microscopic+U.LAB.BRZ ordered. EDMS EDMS 16:10 16:10 Head Brain Wo Cont+CT.RAD.BRZ ordered. EDMS EDMS 20:12 17:00 This 68 yrs old Female presents to ER via Ambulatory with complaints of High cp Blood Pressure. cp 20:12 17:00 The patient has elevated blood pressure and discovered this at home, cp cp 20:12 17:00 Onset: The symptoms/episode began/occurred today, cp cp
--- NOTE | 2024-05-08 23:04 | ER ---
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 Pt cm10 states that her BP at home was 199/120. Pt denies chest pain or shortness of breath. PT reports headache to the right side of head that she describes as pressure rates the pain a 2/10. Coronavirus screen: Client denies travel out of the [place] in the last 14 days. At this time, the client does not indicate any symptoms associated with coronavirus-19. Ebola Screen: Patient denies travel to an Ebola-affected area in the 21 days before illness onset. No symptoms or risks identified at this time. Initial Sepsis Screen: Does the patient meet any 2 criteria? No. Patient's initial sepsis screen is negative. Does the patient have a suspected source of infection? No. Patient's initial sepsis screen is negative. Risk Assessment: Do you want to hurt yourself or someone else? Patient reports no desire to harm self or others. Onset of symptoms was May 08, 2024. 16:03 Method Of Arrival: Ambulatory cm10 16:03 Acuity: UYEN 3 cm10 Triage Assessment: 16:05 General: Appears in no apparent distress. comfortable, Behavior is calm, cooperative. cm10 Neuro: No deficits noted. Level of Consciousness is awake, alert, obeys commands, Oriented to person, place, time, situation, Appropriate for age Reports headache in right frontal area. Respiratory: No deficits noted. Airway is patent Respiratory effort is even, unlabored, Respiratory pattern is regular, symmetrical. Historical: - Allergies: 16:05 PENICILLINS; cm10 - PMHx: 16:05 Hypertensive disorder; Myocardial infarction; Hypercholesterolemia; cm10 - PSHx: 16:05 Total abdominal hysterectomy; cm10 - Immunization history:: Adult Immunizations up to date. - Infectious Disease History:: Denies. - Social history:: Smoking status: Patient denies any tobacco usage or history of. Screenin:25 [facility] ED Fall Risk Assessment (Adult) History of falling in the last 3 months, rs5 including since admission No falls in past 3 months (0 pts) Confusion or Disorientation No (0 pts) Intoxicated or Sedated No (0 pts) Impaired Gait No (0 pts) Mobility Assist Device Used No (0 pt) Altered Elimination No (0 pt) Score/Fall Risk Level 0 - 2 = Low Risk Oriented to surroundings, Maintained a safe environment. Abuse screen: Denies injuries from another. Nutritional screening: No deficits noted. Tuberculosis screening: No symptoms or risk factors identified. Assessment: 18:20 Reassessment: pt arrived in room . rs5 18:25 General: Appears in no apparent distress. comfortable, Behavior is calm, cooperative. rs5 Pain: Denies pain. Neuro: Level of Consciousness is awake, alert, obeys commands, Oriented to person, place, time, situation. Cardiovascular: Patient's skin is warm and dry. Respiratory: Airway is patent Respiratory effort is even, unlabored, Respiratory pattern is regular, symmetrical. GI: Abdomen is round non-distended, Abd is soft and non tender X 4 quads. : No signs and/or symptoms were reported regarding the genitourinary system. EENT: No signs and/or symptoms were reported regarding the EENT system. Derm: Skin is intact, Skin is pink, warm \T\ dry. Musculoskeletal: Range of motion: intact in all extremities. 18:42 Reassessment: Patient and/or family updated on plan of care and expected duration. Pain rs5 level reassessed. Patient is alert, oriented x 3, equal unlabored respirations, skin warm/dry/pink. Vital Signs: 16:03 BP 188 / 106; Pulse 91; Resp 18; Temp 98.8; Pulse Ox 95% on R/A; Weight 56.7 kg; Height cm10 4 ft. 10 in. ; Pain 2/10; 16:51 BP 200 / 101; Pulse 88; nj1 18:25 BP 196 / 111; Pulse 80; Resp 17; Pulse Ox 98% on R/A; rs5 21:43 BP 173 / 112; Pulse 98; Pulse Ox 98% ; jm12 22:41 BP 154 / 92; Pulse 102; Resp 16; Pulse Ox 100% ; jm12 16:03 Body Mass Index 26.12 (56.70 kg, 147.32 cm) cm10 16:03 Pain Scale: Adult cm10 ED Course: 15:27 Patient arrived in ED. mg5 15:31 Kishor George PA is PHCP. cp 15:31 Harley Jim MD is Attending Physician. cp 16:05 Triage completed. cm10 16:06 Arm band placed on Patient placed in waiting room. cm10 16:55 Inserted saline lock: 20 gauge in right forearm, using aseptic technique. Blood nj1 collected. Flushed with 10 mL NS. 17:12 CT Head Brain wo Cont In Process Unspecified. EDMS 18:25 Patient has correct armband on for positive identification. Placed in gown. Bed in low rs5 position. Call light in reach. Side rails up X2. 18:25 No provider procedures requiring assistance completed. rs5 18:40 Matty Rachel, TOYA is Primary Nurse. rs5 20:19 PHCP role handed off by Kishor George PA sb4 20:19 Viv Nunez PA-C is PHCP. sb4 23:17 IV discontinued, intact, bleeding controlled, No redness/swelling at site. Pressure jm12 dressing applied. Administered Medications: 16:58 Drug: amLODIPine PO 10 mg PO once Route: PO; nj1 18:30 Drug: NS 0.9% IV 500 ml IV at calculated rate continuous Route: IV; Rate: calculated rs5 rate; Site: right antecubital; 23:23 Follow up: IV Status: Completed infusion; IV Intake: 500ml jm12 18:30 Drug: Potassium PO Effervescent Tablet 50 mEq PO once; dissolve in 4 ounces of water or rs5 juice Route: PO; 18:40 Drug: hydrALAZINE IVP 10 mg IVP once Route: IVP; Site: right antecubital; rs5 23:23 Follow up: Response: No adverse reaction; Marked relief of symptoms jm12 22:04 Drug: hydrALAZINE IVP 10 mg IVP once Route: IVP; Site: left forearm; jm12 Medication: 18:43 VIS not applicable for this client. rs5 Intake: 23:23 IV: 500ml; Total: 500ml. jm12 Outcome: 23:03 Discharge ordered by . sb4 23:18 Discharged to home ambulatory, jm12 23:18 Condition: stable 23:18 Discharge instructions given to patient, Instructed on discharge instructions, follow up and referral plans. Demonstrated understanding of instructions, follow-up care, 23:23 Patient left the ED. jm12 Signatures: Dispatcher [employer] EDMS Kishor George PA PA cp Brown, Sophia, PA-C PA-C sb4 Matty Rachel, RN RN rs5 Hina Ortiz RN RN nj1 Domenica Quintero RN RN cm10 Pearl Moreira 5 Judi Grady RN RN jm12 Corrections: (The following items were deleted from the chart) 16:05 16:05 Allergies: Tetanus Vaccines \T\ Toxoid; cm10 cm10
[2024-05-09 00:14] VITALS: TEMP 98.8
[2024-05-09 00:21] VITALS: BP 154/92; O2SAT 100
== END 2024-05-08 23:23 | disposition home or self-care (01) ==
LOC: ER 15:23
DX: I10 Essential (primary) hypertension (principal)
CPT/HCPCS: 93005; 85025; 80048; 36415; 83735; 80076; 84484; 70450; 99284; J0360 ×2; J7040

== ENCOUNTER 2024-07-18 07:12 | Inpatient (IN) | payer OTHER, MEDICARE ==
--- OUTSIDE RECORDS SUMMARY | 2024-07-18 07:17 | XMS REPORT | Continuity of Care Document ---
Author Name Unknown Address [address] [facility] [address] [place] [address] [facility] Address [address] [facility] [address] [place] [address] Care Team Providers Care [employer] Operator Name Role Phone Evelyn Kidd MD Primary Care Physician [phone] Evelyn Kidd Attending Clinician Unavailable Luba JOHNSON Attending Clinician Unavailable QUENTIN RUELAS Attending Clinician Unavailable CARLYLE MENEZES Attending Clinician Unavailable TOMMIE NEWSOME Attending Clinician Sara Carlyle Torre DO Attending Clinician [phone] Quentin Ruelas MD Attending Clinician [phone] Pob, [facility] Main Attending Clinician UnavailLisa Elmore MD Attending Clinician + [phone] LISA GUAN Attending Clinician UnavailLISA [place] Attending Clinician UnavailQuentin Guadalupe MD Attending Clinician [phone] LISS GUTIERREZ Attending Clinician Unavailab TIANA Perez Attending Clinician Unavailable Doctor Unassigned, [place] Attending Clinician U navailable JOE WATKINS Attending Clinician Unavailable HERMAN CARRION Attending Clinician Unav ailable 2, [facility] Attending Clinician Unavailable ERIN SAUNDERS Attending Clinician Un available CHAGO OBRIEN Attending Clinician Unava ilable SHANTHI MILAN Attending Clinician Unavailable Shantel Martinez Attending Clinician [phone] SHANTEL FERNANDEZ Attending Clinician Unavailable Shaina Jon MD Attending Clinician [phone] SHAINA JON Attending Clinician Unavailable KELLY CALLOWAY Attending Clinician Unavailable Kelly Quintana Attending Clinician [phone] [address] Attending Clinician Unavail QUENTIN Dumont Admitting Clinician Unavailable Payers Payer Name Policy Type Policy Number Effective Date Expirati on Date Source MEDICARE PART A \T\ B [id number] 2022 00:00:00 [facility] SUPPLE[facility] [id number] 2023 00:00:00 [facility] [id number] 2017 00:00:00 [place] [id number] [place] [address] [id number] [place] [address] [id number] [facility] Problems Condition Name Condition Details Condition Category Status Onset Date Resolution Date Last Treatment Date Treating Clinician Comments Source Renal artery stenosis Renal artery stenosis Disease Active 2023-09 00:00: 00 [facility] Obesity (BMI 30-39.9) Obesity (BMI 30-39.9) Disease Active 2023-09 00:00: 00 [facility] Hypertensi ve urgency Hypertensi ve urgency Disease Active 02-21 00:00: 00 [facility] Primary hypertensi on Primary hypertensi on Disease Active 12-02 00:00: 00 [facility] 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 Disease Active - 00:00: 00 [facility] Nonobstruc tive atheroscle rosis of coronary artery Nonobstruc tive atheroscle rosis of coronary artery Disease Active 3-08 00:00: 00 [facility] MDD (major depressive disorder), recurrent episode, moderate MDD (major depressive disorder), recurrent episode, moderate Disease Active 8- 00:00: 00 [facility] MDD (major depressive disorder), recurrent episode, moderate MDD (major depressive disorder), recurrent episode, moderate Disease Active 8 00:00: 00 [facility] Anxiety Anxiety Disease Active 8- 00:00: 00 [facility] Chronic pain syndrome Chronic pain syndrome Disease Active 05-17 00:00: 00 [facility] [id number] Stage 3a chronic kidney disease (CKD) Problem [facility] [id number] Gastroesop hageal reflux disease, unspecifie d whether esophagiti s present Problem [facility] [id number] Vitreous degenerati on, bilateral Problem [facility] [id number] 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, bilateral Problem [facility] [id number] Presbyopia Problem [facility] Chronic kidney disease due to hypertensi on Benign hypertensi on with chronic kidney disease, stage III Problem [facility] [id number] Primary osteoarthr itis of right knee Problem [facility] [id number] Coronary artery disease involving [place] coronary artery of [place] heart without angina pectoris Problem [facility] [id number] Vitamin D deficiency Problem [facility] Osteoporos is Osteoporos is Problem [facility] Hyperlipid emia Hyperlipid emia Problem [facility] Allergic rhinitis Allergic rhinitis Problem [facility] Rib pain Rib pain Problem [facility] [id number] Blood glucose elevated Problem [facility] Atheroscle rotic heart disease of [place] coronary artery without angina pectoris Arterioscl erotic coronary artery disease Problem [facility] Back pain Back pain Problem [facility] High cholestero l High cholestero l Problem [facility] [id number] Renal insufficie ncy Problem [facility] Cardiac arrhythmia Abnormal heart rhythm Problem [facility] [id number] Slow transit constipati on Problem [facility] Low blood pressure reading Low blood pressure reading Problem [facility] [id number] Thoracic spondylosi s Problem [facility] [id number] Screening mammogram, encounter for Problem [facility] [id number] Need for Tdap vaccinatio n Problem [facility] [id number] 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 Problem [facility] [id number] Adult general medical examinatio n Problem [facility] Hypertensi on HTN (hypertens ion) Problem [facility] Depression Depression Problem Co mmon [facility] [id number] Other chronic pain Problem [facility] [id number] Lumbago with sciatica, left side Problem [facility] Cervical disc disorder DDD (degenerat kimberly disc disease), cervical Problem [facility] [id number] Lumbago with sciatica, right side Problem [facility] Allergies, Adverse Reactions, Alerts Allergy Name Allergy Type Status Severity Reaction(s) Onset Date Inactive Date Treating Clinician Comments Source AMLODIPI NE DRUG INGREDI Active Swelling 03-29 00:00: 00 [facility] Amlodipi ne Propensi ty to adverse reaction s Active Swelling 03-29 00:00: 00 [facility] PENICILL IN DRUG INGREDI Active Rash 10-22 00:00: 00 [facility] Penicill in Propensi ty to adverse reaction s to drug Active Rash 10-22 00:00: 00 [facility] doxycycl ine doxycycl ine Active hives, rash [facility] clindamy emmie clindamy emmie Active hives, rash [facility] 8091 Drug allergy Active hives, rash [facility] 0 Drug allergy Active hives [facility] Family History Family Member Diagnosis Comments Start Date Stop Date Sourc e Natural mother Diabetes Unive [facility] Natural mother Heart Unive [facility] Social History Social Habit Start Date Stop Date Quantity Comments Source Gender identity [facility] Sexual orientation [facility] Sex Assigned At [facility] Alcoholic beverage intake 2024-06-27 00:00:00 2024-06-27 00:00:00 Current non-drinker of alcohol (finding) [facility] History of Social function 2024-02-17 00:00:00 2024-02-17 00:00:00 [facility] Tobacco use and exposure 2024-02-17 00:00:00 2024-02-17 00:00:00 Smokeless tobacco non-user [facility] Alcohol intake 2023-07-09 00:00:00 2023-07-09 00:00:00 Current non-drinker of alcohol (finding) [facility] Exposure to SARS-CoV-2 (event) 2022-10-26 00:00:00 2022-11-05 10:44:00 Not sure [facility] History of tobacco use 2012-10-22 00:00:00 Cigarette Smoker [facility] Smoking Status Start Date Stop Date Source Occasional tobacco smoker 2024-02-17 00:00:00 [facility] Never Smoker [facility] Current Smoker 2022-08-18 00:00:00 [facility] Medications Ordered Medication Name Filled Medication Name Start Date Stop Date Current Medication? Ordering Clinician Indication Dosage Frequency Signature (SIG) Comments Components Source buPROPion XL (WELLBUTRIN XL) 150 mg 24 hr tablet 2023-09 0 00:00: 00 Yes [id number] 150mg Take 1 tablet by mouth in the morning. Take along with 300mg for 450mg total. [facility] buPROPion XL (WELLBUTRIN XL) 300 mg 24 hr tablet 2023-09 0 00:00: 00 Yes [id number] 300mg Take 1 tablet by mouth in the morning. [facility] vitamin B complex (B COMPLEX 1 ORAL) 2023-09 0 09:07: 19 Yes Take by mouth. [facility] spironolact one 25 mg tablet 05-09 00:00: 00 Yes [id number] 25mg Take 1 tablet by mouth in the morning. [facility] hydroCHLORO thiazide 25 mg tablet 05-09 00:00: 00 06-27 00:00 :00 No [id number] 25mg Take 1 tablet by mouth in the morning. [facility] buprenorphi ne 10 mcg/hour patch 04-28 00:00: 00 Yes [facility] lisinopriL 20 mg tablet 04-11 00:00: 00 Yes [id number] 20mg Take 1 tablet by mouth in the morning and 1 tablet in the evening. [facility] cloNIDine (CATAPRES) tablet 0.1 mg 02-21 20:30: 00 02-21 19:28 :00 No [id number] .1mg 0.1 mg, Oral, ONCE, 1 dose, On Wed02/22/24 at 1530, Routine [facility] cloNIDine (CATAPRES) tablet 0.1 mg 02-21 19:45: 00 02-21 18:52 :00 No [id number] .1mg 0.1 mg, Oral, ONCE, 1 dose, On Wed02/22/24 at 1445, Routine [facility] alendronate (FOSAMAX) 70 mg tablet 02-21 13:42: 27 06-30 00:00 :00 No 70mg Take 1 tablet by mouth weekly. [facility] amLODIPine 10 mg tablet 02-21 00:00: 00 03-29 00:00 :00 No [id number] 10mg Take 1 tablet by mouth in the morning. [facility] rosuvastati n 20 mg tablet 02-16 13:25: 56 06-30 00:00 :00 No 20mg Take 1 tablet by mouth at bedtime. [facility] pravastatin 40 mg tablet 02-16 13:25: 56 03-29 00:00 :00 No 40mg Take 1 tablet by mouth at bedtime. [facility] buPROPion XL (WELLBUTRIN XL) 150 mg 24 hr tablet 02-16 00:00: 00 07-04 00:00 :00 No [id number] 150mg Take 1 tablet by mouth in the morning. Take along with 300mg for 450mg total. [facility] Rosuvastati n Calcium 20 MG Rosuvastati n Calcium 20 MG 02-10 00:00: 00 No 1{table t} QD Rosuvastat in Calcium 20 MG carvediloL 25 mg tablet 01-23 00:00: 00 Yes [id number] 25mg Take 1 tablet by mouth in the morning and 1 tablet in the evening. Take with meals. [facility] DULoxetine 60 mg capsule 11-11 00:00: 00 Yes [id number] 60mg Take 1 capsule by mouth in the morning and 1 capsule in the evening. [facility] buPROPion XL (WELLBUTRIN XL) 300 mg 24 hr tablet 11-11 00:00: 00 07-04 00:00 :00 No [id number] 300mg Take 1 tablet by mouth in the morning. [facility] lisinopriL 20 mg tablet 2022-09 00:00: 00 Yes [id number] 20mg Take 1 tablet by mouth in the morning and 1 tablet in the evening. [facility] Prolia 60 MG/ML Prolia 60 MG/ML 2022-09 017 00:00: 00 No Prolia 60 MG/ML buPROPion XL (WELLBUTRIN XL) 300 mg 24 hr tablet 2022-09 0-13 00:00: 00 11-11 00:00 :00 No [id number] 300mg Take 1 tablet by mouth in the morning. [facility] DULoxetine 60 mg capsule 2022-09 0-13 00:00: 00 11-11 00:00 :00 No [id number] 60mg Take 1 capsule by mouth in the morning and 1 capsule in the evening. [facility] carvediloL 25 mg tablet 2022-0 9-18 00:00: 00 01-23 00:00 :00 No [id number] 25mg Take 1 tablet by mouth in the morning and 1 tablet in the evening. Take with meals. [facility] DULoxetine 60 mg capsule 0 7-13 00:00: 00 07-09 00:00 :00 No [id number] 60mg Take 1 capsule by mouth in the morning and 1 capsule in the evening. [facility] buPROPion XL 150 mg 24 hr tablet - 00:00: 00 07-09 00:00 :00 No [id number] 300mg Take 2 tablets by mouth in the morning. [facility] lisinopriL 20 mg tablet 5-31 00:00: 00 09-14 00:00 :00 No [id number] 20mg Take 1 tablet by mouth in the morning and 1 tablet in the evening. [facility] carvediloL 25 mg tablet 3-17 00:00: 00 06-14 00:00 :00 No [id number] 25mg Take 1 tablet by mouth in the morning and 1 tablet in the evening. Take with meals. [facility] Metoclopram keith 5 mg TbDL 2-09 10:56: 27 Yes Take by mouth 3 (three) times daily. [facility] buPROPion XL 150 mg 24 hr tablet 2022-0 2-09 00:00: 00 04-08 00:00 :00 No [id number] 300mg Take 2 tablets by mouth in the morning. [facility] DULoxetine 60 mg capsule 2-09 00:00: 00 04-08 00:00 :00 No [id number] 60mg Take 1 capsule by mouth in the morning and 1 capsule in the evening. [facility] lisinopriL 20 mg tablet 2021-09 00:00: 00 02-24 00:00 :00 No [id number] 20mg Take 1 tablet by mouth in the morning and 1 tablet in the evening. [facility] carvediloL 12.5 mg tablet 2021-09 00:00: 00 12-11 00:00 :00 No [id number] 12.5mg Take 1 tablet by mouth in the morning and 1 tablet in the evening. Take with meals. [facility] diclofenac 75 mg EC tablet 2021-09 09:44: 39 Yes 75mg Take 75 mg by mouth 3 (three) times daily with meals. [facility] DULoxetine 60 mg capsule 2021-09 00:00: 00 11-05 00:00 :00 No [id number] 60mg Take 1 capsule by mouth in the morning and 1 capsule in the evening. [facility] buPROPion XL 300 mg 24 hr tablet 2021-09 00:00: 00 11-05 00:00 :00 No [id number] 300mg Take 1 tablet by mouth in the morning. [facility] buPROPion XL (WELLBUTRIN XL) 150 mg 24 hr tablet 04-24 00:00: 00 11-05 00:00 :00 No [id number] 150mg Take 1 tablet by mouth in the morning. [facility] buPROPion XL 300 mg 24 hr tablet 04-24 00:00: 00 07-30 00:00 :00 No [id number] 300mg Take 1 tablet by mouth in the morning. [facility] DULoxetine 60 mg capsule 04-24 00:00: 00 07-30 00:00 :00 No [id number] 60mg Take 1 capsule by mouth in the morning and 1 capsule in the evening. [facility] busPIRone 15 mg tablet 04-06 00:00: 00 02-16 00:00 :00 No [id number] 15mg Take 1 tablet by mouth in the morning and 1 tablet in the evening. [facility] lisinopriL 20 mg tablet 02-19 00:00: 00 08-26 00:00 :00 No [id number] 20mg Take 1 tablet by mouth 2 (two) times daily. [facility] carvediloL 12.5 mg tablet 02-19 00:00: 00 08-24 00:00 :00 No [id number] 25mg Take 2 tablets by mouth 2 (two) times daily with meals. [facility] diclofenac 75 mg EC tablet 11-28 08:40: 03 Yes 75mg Take 75 mg by mouth 3 (three) times daily with meals. [facility] aspirin 81 mg chewable tablet 11-28 08:40: 03 Yes 81mg Take 1 tablet by mouth in the morning. [facility] cyclobenzap rine 10 mg tablet 11-28 08:40: 03 Yes 10mg Take 1 tablet by mouth in the morning and 1 tablet at noon and 1 tablet in the evening. [facility] pravastatin 40 mg tablet 2020-09 10:44: 15 Yes 40mg Take 1 tablet by mouth at bedtime. [facility] DULoxetine 60 mg capsule 2020-09 00:00: 00 04-24 00:00 :00 No [id number] 60mg Take 1 capsule by mouth 2 (two) times daily. [facility] buPROPion XL 300 mg 24 hr tablet 2020-09 00:00: 00 04-24 00:00 :00 No [id number] 300mg Take 1 tablet by mouth daily. [facility] buPROPion XL (WELLBUTRIN XL) 150 mg 24 hr tablet 2020-09 00:00: 00 04-24 00:00 :00 No [id number] 150mg Take 1 tablet by mouth daily. [facility] alendronate (FOSAMAX) 70 mg tablet 04-21 10:40: 05 Yes 70mg Take 1 tablet by mouth weekly. [facility] omeprazole 40 mg capsule 04-21 10:40: 05 Yes 40mg Take 1 capsule by mouth in the morning. [facility] oxyCODONE C.R. (OXYCONTIN) 80 mg 12 hr tablet 04-21 10:40: 05 06-30 00:00 :00 No 80mg Take 1 tablet by mouth every 12 (twelve) hours. [facility] DULoxetine HCl 60 MG DULoxetine HCl 60 MG No 1{capsu le} BID DULoxetine HCl 60 MG Coreg 25 MG Coreg 25 MG [...] No 1{table t} BID Lisinopril 20 MG Immunizations Ordered Immunization Name Filled Immunization Name Date Status Comments Source TDAP 2022-01-22 00:00:00 Completed [facility] TDAP 2022-01-22 00:00:00 Completed [facility] TDAP 2022-01-22 00:00:00 Completed [facility] TDAP 2022-01-22 00:00:00 Completed [facility] TDAP 2022-01-22 00:00:00 Completed [facility] TDAP 2022-01-22 00:00:00 Completed [facility] TDAP 2022-01-22 00:00:00 Completed [facility] TDAP 2022-01-22 00:00:00 Completed [facility] TDAP 2022-01-22 00:00:00 Completed [facility] TDAP 2022-01-22 00:00:00 Completed [facility] TDAP 2022-01-22 00:00:00 Completed [facility] TDAP 2022-01-22 00:00:00 Completed [facility] TDAP 2022-01-22 00:00:00 Completed [facility] TDAP 2022-01-22 00:00:00 Completed [facility] TDAP 2022-01-22 00:00:00 Completed [facility] Influenza Virus Vaccine 2021-07-27 00:00:00 Completed [facility] Influenza Virus Vaccine 2021-07-27 00:00:00 Completed [facility] Influenza Virus Vaccine 2021-07-27 00:00:00 Completed [facility] Influenza Virus Vaccine 2021-07-27 00:00:00 Completed [facility] Influenza Virus Vaccine 2021-07-27 00:00:00 Completed [facility] Influenza Virus Vaccine 2021-07-27 00:00:00 Completed [facility] Influenza Virus Vaccine 2021-07-27 00:00:00 Completed [facility] Influenza Virus Vaccine 2021-07-27 00:00:00 Completed [facility] Influenza Virus Vaccine 2021-07-27 00:00:00 Completed [facility] Influenza Virus Vaccine 2021-07-27 00:00:00 Completed [facility] Influenza Virus Vaccine 2021-07-27 00:00:00 Completed [facility] Influenza Virus Vaccine 2021-07-27 00:00:00 Completed [facility] Influenza Virus Vaccine 2021-07-27 00:00:00 Completed [facility] Influenza Virus Vaccine 2021-07-27 00:00:00 Completed [facility] Influenza Virus Vaccine 2021-07-27 00:00:00 Completed [facility] FluAD FluAD 2021-06-30 11:57:00 Completed [facility] FluAD FluAD 2021-06-30 11:57:00 Completed [facility] FluAD FluAD 2021-06-30 11:57:00 Completed [facility] FluAD FluAD 2021-06-30 11:57:00 Completed [facility] Prevnar 13 (PCV13) Prevnar 13 (PCV13) 2021-06-30 11:56:00 Completed [facility] Prevnar 13 (PCV13) Prevnar 13 (PCV13) 2021-06-30 11:56:00 Completed [facility] Prevnar 13 (PCV13) Prevnar 13 (PCV13) 2021-06-30 11:56:00 Completed [facility] Prevnar 13 (PCV13) Prevnar 13 (PCV13) 2021-06-30 11:56:00 Completed [facility] Flucelvax - single dose syringe Flucelvax - single dose syringe 2018-09-15 09:39:00 Completed [facility] Flucelvax - single dose syringe Flucelvax - single dose syringe 2018-09-15 09:39:00 Completed [facility] Flucelvax - single dose syringe Flucelvax - single dose syringe 2018-09-15 09:39:00 Completed [facility] Flucelvax - single dose syringe Flucelvax - single dose syringe 2018-09-15 09:39:00 Completed [facility] Flucelvax - single dose syringe Flucelvax - single dose syringe 2018-09-15 09:39:00 Completed [facility] Flucelvax - single dose syringe Flucelvax - single dose syringe 2018-09-15 00:00:00 Completed [facility] Adacel (Tdap) Adacel (Tdap) 2018-03-16 12:20:00 Completed [facility] Adacel (Tdap) Adacel (Tdap) 2018-03-16 12:20:00 Completed [facility] Adacel (Tdap) Adacel (Tdap) 2018-03-16 12:20:00 Completed [facility] Adacel (Tdap) Adacel (Tdap) 2018-03-16 12:20:00 Completed [facility] Adacel (Tdap) Adacel (Tdap) 2018-03-16 12:20:00 Completed [facility] TDAP > 7 Years-Adacel TDAP > 7 Years-Adacel 2018-03-16 00:00:00 Completed [facility] Influenza Virus Vaccine Unknown Completed [facility] TDAP Unknown Completed [facility] Influenza Virus Vaccine Unknown Completed [facility] TDAP Unknown Completed [facility] Influenza Virus Vaccine Unknown Completed [facility] TDAP Unknown Completed [facility] Influenza Virus Vaccine Unknown Completed [facility] TDAP Unknown Completed [facility] Influenza Virus Vaccine Unknown Completed [facility] TDAP Unknown Completed [facility] Influenza Virus Vaccine Unknown Completed [facility] TDAP Unknown Completed [facility] Influenza Virus Vaccine Unknown Completed [facility] TDAP Unknown Completed [facility] Influenza Virus Vaccine Unknown Completed [facility] TDAP Unknown Completed [facility] Influenza Virus Vaccine Unknown Completed [facility] TDAP Unknown Completed [facility] Influenza Virus Vaccine Unknown Completed [facility] TDAP Unknown Completed [facility] Influenza Virus Vaccine Unknown Completed [facility] TDAP Unknown Completed [facility] Influenza Virus Vaccine Unknown Completed [facility] TDAP Unknown Completed [facility] Influenza Virus Vaccine Unknown Completed [facility] TDAP Unknown Completed [facility] Influenza Virus Vaccine Unknown Completed [facility] TDAP Unknown Completed [facility] Influenza Virus Vaccine Unknown Completed [facility] TDAP Unknown Completed [facility] [place] Influ[place] Virus Vaccine Unknown Completed [facility] TDAP Unknown Completed [facility] Influenza Virus Vaccine Unknown Completed [facility] TDAP Unknown Completed [facility] Influenza Virus Vaccine Unknown Completed [facility] TDAP Unknown Completed [facility] Influenza Virus Vaccine Unknown Completed [facility] TDAP Unknown Completed [facility] Influenza Virus Vaccine Unknown Completed [facility] TDAP Unknown Completed [facility] Influenza Virus Vaccine Unknown Completed [facility] TDAP Unknown Completed [facility] Influenza Virus Vaccine Unknown Completed [facility] TDAP Unknown Completed [facility] FluAD FluAD Unknown Completed [facility] Flucelvax (ccIIV4) - SDS - 0.5mL Flucelvax (ccIIV4) - SDS - 0.5mL Unknown Completed [facility] Adacel (Tdap) Adacel (Tdap) Unknown Completed [facility] Prevnar 13 (PCV13) Prevnar 13 (PCV13) Unknown Completed [facility] FluAD FluAD Unknown Completed Common [facility] Flucelvax (ccIIV4) - SDS - 0.5mL Flucelvax (ccIIV4) - SDS - 0.5mL Unknown Completed [facility] Adacel (Tdap) Adacel (Tdap) Unknown Completed [facility] Prevnar 13 (PCV13) Prevnar 13 (PCV13) Unknown Completed [facility] FluAD FluAD Unknown Completed Common [facility] Flucelvax (ccIIV4) - SDS - 0.5mL Flucelvax (ccIIV4) - SDS - 0.5mL Unknown Completed [facility] Adacel (Tdap) Adacel (Tdap) Unknown Completed [facility] Prevnar 13 (PCV13) Prevnar 13 (PCV13) Unknown Completed [facility] FluAD FluAD Unknown Completed Common [facility] Flucelvax (ccIIV4) - SDS - 0.5mL Flucelvax (ccIIV4) - SDS - 0.5mL Unknown Completed [facility] Adacel (Tdap) Adacel (Tdap) Unknown Completed [facility] Prevnar 13 (PCV13) Prevnar 13 (PCV13) Unknown Completed [facility] FluAD FluAD Unknown Completed Common [facility] Flucelvax (ccIIV4) - SDS - 0.5mL Flucelvax (ccIIV4) - SDS - 0.5mL Unknown Completed [facility] Adacel (Tdap) Adacel (Tdap) Unknown Completed [facility] Prevnar 13 (PCV13) Prevnar 13 (PCV13) Unknown Completed [facility] FluAD FluAD Unknown Completed Common [facility] Flucelvax (ccIIV4) - SDS - 0.5mL Flucelvax (ccIIV4) - SDS - 0.5mL Unknown Completed [facility] Adacel (Tdap) Adacel (Tdap) Unknown Completed [facility] Prevnar 13 (PCV13) Prevnar 13 (PCV13) Unknown Completed [facility] FluAD FluAD Unknown Completed Common [facility] Flucelvax (ccIIV4) - SDS - 0.5mL Flucelvax (ccIIV4) - SDS - 0.5mL Unknown Completed [facility] Adacel (Tdap) Adacel (Tdap) Unknown Completed [facility] Prevnar 13 (PCV13) Prevnar 13 (PCV13) Unknown Completed [facility] FluAD FluAD Unknown Completed Common [facility] Flucelvax (ccIIV4) - SDS - 0.5mL Flucelvax (ccIIV4) - SDS - 0.5mL Unknown Completed [facility] Adacel (Tdap) Adacel (Tdap) Unknown Completed [facility] Prevnar 13 (PCV13) Prevnar 13 (PCV13) Unknown Completed [facility] FluAD FluAD Unknown Completed [facility] Flucelvax (ccIIV4) - SDS - 0.5mL Flucelvax (ccIIV4) - SDS - 0.5mL Unknown Completed [facility] Adacel (Tdap) Adacel (Tdap) Unknown Completed [facility] Prevnar 13 (PCV13) Prevnar 13 (PCV13) Unknown Completed [facility] FluAD FluAD Unknown Completed [facility] Flucelvax (ccIIV4) - SDS - 0.5mL Flucelvax (ccIIV4) - SDS - 0.5mL Unknown Completed [facility] Adacel (Tdap) Adacel (Tdap) Unknown Completed [facility] Prevnar 13 (PCV13) Prevnar 13 (PCV13) Unknown Completed [facility] FluAD FluAD Unknown Completed Common [facility] Flucelvax (ccIIV4) - SDS - 0.5mL Flucelvax (ccIIV4) - SDS - 0.5mL Unknown Completed [facility] Adacel (Tdap) Adacel (Tdap) Unknown Completed [facility] Prevnar 13 (PCV13) Prevnar 13 (PCV13) Unknown Completed [facility] FluAD FluAD Unknown Completed [facility] Flucelvax (ccIIV4) - SDS - 0.5mL Flucelvax (ccIIV4) - SDS - 0.5mL Unknown Completed [facility] Adacel (Tdap) Adacel (Tdap) Unknown Completed [facility] Prevnar 13 (PCV13) Prevnar 13 (PCV13) Unknown Completed [facility] FluAD FluAD Unknown Completed [facility] Flucelvax (ccIIV4) - SDS - 0.5mL Flucelvax (ccIIV4) - SDS - 0.5mL Unknown Completed [facility] Adacel (Tdap) Adacel (Tdap) Unknown Completed [facility] Prevnar 13 (PCV13) Prevnar 13 (PCV13) Unknown Completed [facility] FluAD FluAD Unknown Completed [facility] Flucelvax (ccIIV4) - SDS - 0.5mL Flucelvax (ccIIV4) - SDS - 0.5mL Unknown Completed [facility] Adacel (Tdap) Adacel (Tdap) Unknown Completed [facility] Prevnar 13 (PCV13) Prevnar 13 (PCV13) Unknown Completed [facility] FluAD FluAD Unknown Completed [facility] Flucelvax (ccIIV4) - SDS - 0.5mL Flucelvax (ccIIV4) - SDS - 0.5mL Unknown Completed [facility] Adacel (Tdap) Adacel (Tdap) Unknown Completed [facility] Prevnar 13 (PCV13) Prevnar 13 (PCV13) Unknown Completed [facility] FluAD FluAD Unknown Completed [facility] Flucelvax (ccIIV4) - SDS - 0.5mL Flucelvax (ccIIV4) - SDS - 0.5mL Unknown Completed [facility] Adacel (Tdap) Adacel (Tdap) Unknown Completed [facility] Prevnar 13 (PCV13) Prevnar 13 (PCV13) Unknown Completed [facility] Prevnar 20 (PCV20) Prevnar 20 (PCV20) Unknown Completed [facility] FluAD FluAD Unknown Completed [facility] Flucelvax (ccIIV4) - SDS - 0.5mL Flucelvax (ccIIV4) - SDS - 0.5mL Unknown Completed [facility] Adacel (Tdap) Adacel (Tdap) Unknown Completed [facility] Prevnar 13 (PCV13) Prevnar 13 (PCV13) Unknown Completed [facility] Prevnar 20 (PCV20) Prevnar 20 (PCV20) Unknown Completed [facility] FluAD FluAD Unknown Completed [facility] Flucelvax (ccIIV4) - SDS - 0.5mL Flucelvax (ccIIV4) - SDS - 0.5mL Unknown Completed [facility] Adacel (Tdap) Adacel (Tdap) Unknown Completed [facility] Prevnar 13 (PCV13) Prevnar 13 (PCV13) Unknown Completed [facility] Prevnar 20 (PCV20) Prevnar 20 (PCV20) Unknown Completed [facility] FluAD FluAD Unknown Completed [facility] Flucelvax (ccIIV4) - SDS - 0.5mL Flucelvax (ccIIV4) - SDS - 0.5mL Unknown Completed [facility] Adacel (Tdap) Adacel (Tdap) Unknown Completed [facility] Prevnar 13 (PCV13) Prevnar 13 (PCV13) Unknown Completed [facility] Vital Signs Vital Name Observation Time Observation Value Comments S ource Systolic blood pressure 2024-06-30 14:03:00 121 mm[Hg] [facility] Diastolic blood pressure 2024-06-30 14:03:00 78 mm[Hg] [facility] Heart rate 2024-06-30 14:03:00 80 /min [facility] Body temperature 2024-06-30 14:03:00 36.56 Sarah [facility] Body weight 2024-06-30 14:03:00 58.877 kg [facility] BMI 2024-06-30 14:03:00 35.78 kg/m2 [facility] Oxygen saturation in Arterial blood by Pulse oximetry 2024-06-30 14:03:00 98 /min [facility] Systolic blood pressure 2024-06-27 18:20:00 115 mm[Hg] [facility] Diastolic blood pressure 2024-06-27 18:20:00 70 mm[Hg] [facility] Heart rate 2024-06-27 18:20:00 86 /min [facility] Respiratory rate 2024-06-27 18:20:00 16 /min [facility] Body height 2024-06-27 18:20:00 128.3 cm [facility] Body weight 2024-06-27 18:20:00 59.557 kg [facility] BMI 2024-06-27 18:20:00 36.20 kg/m2 [facility] Oxygen saturation in Arterial blood by Pulse oximetry 2024-06-27 18:20:00 97 /min [facility] Systolic blood pressure 2024-05-09 19:02:00 151 mm[Hg] [facility] Diastolic blood pressure 2024-05-09 19:02:00 89 mm[Hg] [facility] Heart rate 2024-05-09 19:02:00 107 /min [facility] Oxygen saturation in Arterial blood by Pulse oximetry 2024-05-09 19:02:00 95 /min [facility] Respiratory rate 2024-05-09 18:59:00 18 /min [facility] Body height 2024-05-09 18:59:00 151.1 cm [facility] Body weight 2024-05-09 18:59:00 57.97 kg [facility] BMI 2024-05-09 18:59:00 25.38 kg/m2 [facility] Systolic blood pressure 2024-03-29 18:31:00 173 mm[Hg] taken w/pt's bp machine [facility] Diastolic blood pressure 2024-03-29 18:31:00 108 mm[Hg] taken w/pt's bp machine [facility] Heart rate 2024-03-29 18:31:00 81 /min [facility] Body temperature 2024-03-29 18:29:00 36.44 Sarah [facility] Respiratory rate 2024-03-29 18:29:00 17 /min [facility] Body height 2024-03-29 18:29:00 148.6 cm [facility] Body weight 2024-03-29 18:29:00 58.06 kg [facility] BMI 2024-03-29 18:29:00 26.30 kg/m2 [facility] Oxygen saturation in Arterial blood by Pulse oximetry 2024-03-29 18:29:00 96 /min [facility] Systolic blood pressure 2024-02-22 20:12:00 172 mm[Hg] [facility] Diastolic blood pressure 2024-02-22 20:12:00 99 mm[Hg] [facility] Heart rate 2024-02-22 19:22:00 81 /min [facility] Oxygen saturation in Arterial blood by Pulse oximetry 2024-02-22 19:22:00 98 /min [facility] Body temperature 2024-02-22 18:39:00 36.56 Sarah [facility] Respiratory rate 2024-02-22 18:39:00 17 /min [facility] Body weight 2024-02-22 18:39:00 55.974 kg [facility] BMI 2024-02-22 18:39:00 25.35 kg/m2 [facility] Body height 2024-02-22 18:37:00 148.6 cm per pt [facility] height 2024-02-11 08:40:00 58 [in_i] [facility] weight 2024-02-11 08:40:00 125.2 [lb_av] [facility] temperature 2024-02-11 08:40:00 97.2 [degF] [facility] bmi 2024-02-11 08:40:00 26.16 kg/m2 [facility] oximetry 2024-02-11 08:40:00 97 % [facility] respiratory rate 2024-02-11 08:40:00 16 /min [facility] blood pressure systolic 2024-02-11 08:40:00 134 mm[Hg] [facility] blood pressure diastolic 2024-02-11 08:40:00 72 mm[Hg] [facility] height 2024-02-11 08:40:00 58 [in_i] [facility] weight 2024-02-11 08:40:00 125.2 [lb_av] [facility] temperature 2024-02-11 08:40:00 97.2 [degF] [facility] bmi 2024-02-11 08:40:00 26.16 kg/m2 [facility] oximetry 2024-02-11 08:40:00 97 % [facility] respiratory rate 2024-02-11 08:40:00 16 /min [facility] blood pressure systolic 2024-02-11 08:40:00 134 mm[Hg] [facility] blood pressure diastolic 2024-02-11 08:40:00 72 mm[Hg] [facility] height 2023-09-30 10:45:00 58 [in_i] [facility] weight 2023-09-30 10:45:00 125 [lb_av] [facility] temperature 2023-09-30 10:45:00 98.0 [degF] [facility] bmi 2023-09-30 10:45:00 26.1 kg/m2 [facility] blood pressure systolic 2023-09-30 10:45:00 132 mm[Hg] [facility] blood pressure diastolic 2023-09-30 10:45:00 76 mm[Hg] [facility] height 2023-08-31 09:00:00 58 [in_i] [facility] weight 2023-08-31 09:00:00 125 [lb_av] [facility] temperature 2023-08-31 09:00:00 98.6 [degF] [facility] bmi 2023-08-31 09:00:00 26.12 kg/m2 [facility] blood pressure systolic 2023-08-31 09:00:00 128 mm[Hg] [facility] blood pressure diastolic 2023-08-31 09:00:00 74 mm[Hg] [facility] height 2023-08-12 08:30:00 58 [in_i] [facility] weight 2023-08-12 08:30:00 125 [lb_av] [facility] temperature 2023-08-12 08:30:00 98.0 [degF] [facility] bmi 2023-08-12 08:30:00 26.12 kg/m2 [facility] blood pressure systolic 2023-08-12 08:30:00 124 mm[Hg] [facility] blood pressure diastolic 2023-08-12 08:30:00 72 mm[Hg] [facility] height 2023-07-13 14:20:00 58 [in_i] [facility] weight 2023-07-13 14:20:00 124.8 [lb_av] [facility] temperature 2023-07-13 14:20:00 97.3 [degF] [facility] bmi 2023-07-13 14:20:00 26.08 kg/m2 [facility] oximetry 2023-07-13 14:20:00 95 % [facility] respiratory rate 2023-07-13 14:20:00 16 /min [facility] blood pressure systolic 2023-07-13 14:20:00 136 mm[Hg] [facility] blood pressure diastolic 2023-07-13 14:20:00 82 mm[Hg] [facility] height 2023-07-13 08:15:00 58 [in_i] [facility] weight 2023-07-13 08:15:00 125 [lb_av] [facility] bmi 2023-07-13 08:15:00 26.12 kg/m2 [facility] blood pressure systolic 2023-07-13 08:15:00 129 mm[Hg] [facility] blood pressure diastolic 2023-07-13 08:15:00 84 mm[Hg] [facility] height 2023-06-15 15:00:00 58 [in_i] [facility] weight 2023-06-15 15:00:00 125.9 [lb_av] [facility] bmi 2023-06-15 15:00:00 26.31 kg/m2 [facility] blood pressure systolic 2023-06-15 15:00:00 134 mm[Hg] [facility] blood pressure diastolic 2023-06-15 15:00:00 84 mm[Hg] [facility] height 2023-06-01 09:20:00 60.00 [in_i] [facility] weight 2023-06-01 09:20:00 124 [lb_av] [facility] temperature 2023-06-01 09:20:00 97.4 [degF] [facility] bmi 2023-06-01 09:20:00 24.21 kg/m2 [facility] oximetry 2023-06-01 09:20:00 96 % [facility] respiratory rate 2023-06-01 09:20:00 16 /min [facility] blood pressure systolic 2023-06-01 09:20:00 111 mm[Hg] [facility] blood pressure diastolic 2023-06-01 09:20:00 74 mm[Hg] [facility] Systolic blood pressure 2023-04-19 15:10:00 128 mm[Hg] [facility] Diastolic blood pressure 2023-04-19 15:10:00 71 mm[Hg] [facility] Heart rate 2023-04-19 15:10:00 61 /min [facility] Respiratory rate 2023-04-19 15:10:00 19 /min [facility] Body height 2023-04-19 15:10:00 148.6 cm [facility] Body weight 2023-04-19 15:10:00 56.564 kg [facility] BMI 2023-04-19 15:10:00 25.62 kg/m2 [facility] Oxygen saturation in Arterial blood by Pulse oximetry 2023-04-19 15:10:00 97 /min [facility] height 2022-08-18 16:20:00 60.00 [in_i] [facility] weight 2022-08-18 16:20:00 136.4 [lb_av] [facility] temperature 2022-08-18 16:20:00 97.7 [degF] [facility] bmi 2022-08-18 16:20:00 26.64 kg/m2 [facility] oximetry 2022-08-18 16:20:00 96 % [facility] respiratory rate 2022-08-18 16:20:00 18 /min [facility] blood pressure systolic 2022-08-18 16:20:00 132 mm[Hg] [facility] blood pressure diastolic 2022-08-18 16:20:00 82 mm[Hg] [facility] height 2022-05-19 11:00:00 60.00 [in_i] [facility] weight 2022-05-19 11:00:00 134 [lb_av] [facility] bmi 2022-05-19 11:00:00 26.17 kg/m2 [facility] Systolic blood pressure 2022-04-22 15:14:00 136 mm[Hg] [facility] Diastolic blood pressure 2022-04-22 15:14:00 78 mm[Hg] [facility] Heart rate 2022-04-22 15:14:00 65 /min [facility] Body temperature 2022-04-22 15:12:00 35.83 Sarah [facility] Respiratory rate 2022-04-22 15:12:00 16 /min [facility] Body height 2022-04-22 15:12:00 147.3 cm [facility] Body weight 2022-04-22 15:12:00 60.328 kg [facility] BMI 2022-04-22 15:12:00 27.80 kg/m2 [facility] Oxygen saturation in Arterial blood by Pulse oximetry 2022-04-22 15:12:00 98 /min [facility] height 2022-02-16 11:00:00 60.00 [in_i] [facility] weight 2022-02-16 11:00:00 134.8 [lb_av] [facility] temperature 2022-02-16 11:00:00 97.5 [degF] [facility] bmi 2022-02-16 11:00:00 26.32 kg/m2 [facility] oximetry 2022-02-16 11:00:00 97 % [facility] respiratory rate 2022-02-16 11:00:00 17 /min [facility] blood pressure systolic 2022-02-16 11:00:00 139 mm[Hg] [facility] blood pressure diastolic 2022-02-16 11:00:00 85 mm[Hg] [facility] height 2021-11-18 10:20:00 60.00 [in_i] [facility] weight 2021-11-18 10:20:00 139.2 [lb_av] [facility] temperature 2021-11-18 10:20:00 98.0 [degF] [facility] bmi 2021-11-18 10:20:00 27.18 kg/m2 [facility] oximetry 2021-11-18 10:20:00 97 % [facility] respiratory rate 2021-11-18 10:20:00 16 /min [facility] blood pressure systolic 2021-11-18 10:20:00 138 mm[Hg] [facility] blood pressure diastolic 2021-11-18 10:20:00 72 mm[Hg] [facility] height 2021-06-30 11:00:00 60.00 [in_i] [facility] weight 2021-06-30 11:00:00 129 [lb_av] [facility] temperature 2021-06-30 11:00:00 97.4 [degF] [facility] bmi 2021-06-30 11:00:00 25.19 kg/m2 [facility] oximetry 2021-06-30 11:00:00 99 % [facility] respiratory rate 2021-06-30 11:00:00 16 /min [facility] blood pressure systolic 2021-06-30 11:00:00 134 mm[Hg] [facility] blood pressure diastolic 2021-06-30 11:00:00 70 mm[Hg] [facility] height 2021-03-28 10:40:00 60.00 [in_i] [facility] weight 2021-03-28 10:40:00 128.6 [lb_av] [facility] temperature 2021-03-28 10:40:00 97.2 [degF] [facility] bmi 2021-03-28 10:40:00 25.11 kg/m2 [facility] oximetry 2021-03-28 10:40:00 95 % [facility] respiratory rate 2021-03-28 10:40:00 15 /min [facility] blood pressure systolic 2021-03-28 10:40:00 116 mm[Hg] [facility] blood pressure diastolic 2021-03-28 10:40:00 71 mm[Hg] [facility] Systolic blood pressure 2024-06-30 14:03:00 121 mm[Hg] [facility] Diastolic blood pressure 2024-06-30 14:03:00 78 mm[Hg] [facility] Heart rate 2024-06-30 14:03:00 80 /min [facility] Body temperature 2024-06-30 14:03:00 36.56 Sarah [facility] Body weight 2024-06-30 14:03:00 58.877 kg [facility] BMI 2024-06-30 14:03:00 35.78 kg/m2 [facility] Oxygen saturation in Arterial blood by Pulse oximetry 2024-06-30 14:03:00 98 /min [facility] Respiratory rate 2024-06-27 18:20:00 16 /min [facility] Body height 2024-06-27 18:20:00 128.3 cm [facility] Systolic blood pressure 2024-02-17 18:29:00 154 mm[Hg] [facility] Diastolic blood pressure 2024-02-17 18:29:00 89 mm[Hg] [facility] Heart rate 2024-02-17 18:29:00 86 /min [facility] Respiratory rate 2024-02-17 18:21:00 20 /min [facility] Body height 2024-02-17 18:21:00 148.6 cm [facility] Body weight 2024-02-17 18:21:00 55.792 kg [facility] BMI 2024-02-17 18:21:00 25.27 kg/m2 [facility] Respiratory rate 2023-11-11 16:09:00 20 /min [facility] Body height 2023-11-11 16:09:00 148.6 cm [facility] Body weight 2023-11-11 16:09:00 54.931 kg [facility] BMI 2023-11-11 16:09:00 24.88 kg/m2 [facility] Systolic blood pressure 2023-07-09 20:39:00 119 mm[Hg] [facility] Diastolic blood pressure 2023-07-09 20:39:00 71 mm[Hg] [facility] Heart rate 2023-07-09 20:39:00 77 /min [facility] Respiratory rate 2023-07-09 20:36:00 18 /min [facility] Body height 2023-07-09 20:36:00 148.6 cm [facility] Body weight 2023-07-09 20:36:00 56.473 kg [facility] BMI 2023-07-09 20:36:00 25.58 kg/m2 [facility] Oxygen saturation in Arterial blood by Pulse oximetry 2023-04-19 15:10:00 97 /min [facility] Systolic blood pressure 2023-04-08 14:45:00 130 mm[Hg] [facility] Diastolic blood pressure 2023-04-08 14:45:00 70 mm[Hg] [facility] Heart rate 2023-04-08 14:45:00 68 /min [facility] Respiratory rate 2023-04-08 14:45:00 18 /min [facility] Body height 2023-04-08 14:45:00 147.3 cm [facility] Body weight 2023-04-08 14:45:00 56.972 kg [facility] BMI 2023-04-08 14:45:00 26.25 kg/m2 [facility] Systolic blood pressure 2022-11-05 16:51:00 136 mm[Hg] [facility] Diastolic blood pressure 2022-11-05 16:51:00 80 mm[Hg] [facility] Heart rate 2022-11-05 16:51:00 67 /min [facility] Respiratory rate 2022-11-05 16:51:00 20 /min [facility] Body height 2022-11-05 16:51:00 147.3 cm [facility] Body weight 2022-11-05 16:51:00 61.598 kg [facility] BMI 2022-11-05 16:51:00 28.38 kg/m2 [facility] Systolic blood pressure 2022-07-30 14:44:00 136 mm[Hg] [facility] Diastolic blood pressure 2022-07-30 14:44:00 85 mm[Hg] [facility] Heart rate 2022-07-30 14:44:00 64 /min [facility] Respiratory rate 2022-07-30 14:44:00 18 /min [facility] Body height 2022-07-30 14:44:00 147.3 cm [facility] Body weight 2022-07-30 14:44:00 61.326 kg [facility] BMI 2022-07-30 14:44:00 28.26 kg/m2 [facility] Body temperature 2022-04-22 15:12:00 35.83 Sarah [facility] Oxygen saturation in Arterial blood by Pulse oximetry 2022-04-22 15:12:00 98 /min [facility] Procedures Procedure Date / Time Performed Performing Clinician Source RENAL ARTERY DUPLEX - BY VASCULAR LAB 2024-06-20 13:43:37 Quentin Ruelas [facility] RENAL ARTERY DUPLEX - BY VASCULAR LAB 2024-06-20 13:43:37 Quentin Ruelas [facility] SLEEP STUDY DATA REPORT 2024-05-16 18:45:03 Ricci Ruelas [facility] SLEEP LAB RESULTS 2024-05-16 18:43:54 [facility]OL[facility] (NA, K, CL, CO2, GLUCOSE, BUN, CREATININE, CA) 2024-05-16 16:55:00 Quentin Ruelas [facility] HB ECG ROUTINE & RHYTHM STRIP 2024-05-09 18:54:25 Quentin Ruelas [facility] HB ECG ROUTINE & RHYTHM STRIP 2024-05-09 18:54:[facility] COM[facility] 2024-04-27 14:30:32 [facility] (TTE) COMPLETE 2024-04-27 14:30:32 Christine Ruelasadrianna [facility] NOTICE OF BILLING PRACTICES FOR MEDICARE PATIENTS 2023-11-11 16:06:18 Doctor Unassigned, [place] [facility] NOTICE OF BILLING PRACTICES FOR MEDICARE PATIENTS 2023-11-11 16:06:18 Doctor Unassigned, [place] [facility] MEDICAL RELEASE/CLEARANCE FORMS 2023-07-15 05:01:00 Doctor Unassigned, [place] [facility] BASIC METABOLIC PANEL (NA, K, CL, CO2, GLUCOSE, BUN, CREATININE, CA) 2023-04-19 15:39:00 Quentin Ruelas [facility] HB ECG ROUTINE & RHYTHM STRIP 2023-04-19 15:13:36 Quentin Ruelas [facility] PATIENT FINANCIAL POLICY 2023-04-08 14:50:48 Doctor Unassigned, [place] [facility] ASSIGNMENT OF BENEFITS 2023-04-08 14:40:41 Docto r Unassigned, [place] [facility] CONSENT/REFUSAL FOR DIAGNOSIS AND TREATMENT 2023-04-08 14:40:23 Doctor Unassigned, [place] [facility] CONSENT/REFUSAL FOR DIAGNOSIS AND TREATMENT 2023-04-08 14:40:23 Doctor Unassigned, [place] [facility] CONSENT TO TREATMENT WITH PSYCHOACTIVE MEDICATION 2022-11-05 06:01:00 Doctor Unassigned, [place] [facility] AUTHORIZATION FOR RELEASE OF PHI 2022-05-28 05:01:00 Doctor Unassigned, [place] [facility] AUTHORIZATION FOR RELEASE OF PHI 2022-05-28 05:01:00 Doctor Unassigned, [place] [facility] EXTERNAL PROVIDER - ADC CARDIOLOGY 2022-05-19 05:01:00 Doctor Unassigned, [place] [facility] Encounters Start Date/Time End Date/Time Encounter Type Admission Type Attending [facility] Care Department Encounter ID Source 2024-02-11 08:35:00 Outpatient KiddEvelyn thomas STLMLC STLC [id number] [facility] 2024-02-09 13:47:00 Outpatient KiddJamini STLMLC STLMLC [id number] [facility] 2023-09-16 16:14:00 Outpatient KiddJamini STLMLC STLMLC [id number] [facility] 2023-07-29 13:50:00 Outpatient KiddJamini STLMLC STLMLC [id number] [facility] 2023-07-13 13:07:00 Outpatient Kidd Evelyn STLMLC STLMLC [id number] [facility] 2023-07-09 08:19:00 Outpatient Kidd Evelyn STLMLC STLMLC [id number] [facility] 2023-06-17 16:10:00 Outpatient Kidd Evelyn STLMLC STLMLC [id number] [facility] 2023-06-01 09:10:00 Outpatient Kidd Evelyn STLMLC STLMLC [id number] [facility] 2023-05-28 10:06:00 Outpatient Kidd Evelyn STLMLC STLMLC [id number] [facility] 2023-05-14 11:20:00 Outpatient Evelyn Kidd STLMLC STLMLC [id number] [facility] 2022-10-27 09:57:01 Outpatient Luba JOHNSON STLMLC STLMLC [id number] [facility] 2022-08-18 10:51:01 Outpatient Johnson, Na STLMLC STLMLC [id number] [facility] 2022-06-10 14:11:00 Outpatient Johnson, Na STLMLC STLMLC [id number] [facility] 2022-05-19 09:36:00 Outpatient Noah Na STLMLC STLMLC [id number] [facility] 2022-05-15 09:16:00 Outpatient Johnson, Na STLMLC STLMLC [id number] [facility] 2022-02-24 08:31:00 Outpatient Johnson, Na STLMLC STLMLC [id number] [facility] 2021-11-18 10:14:00 Outpatient Noah Na STLMLC STLMLC [id number] [facility] 2021-10-22 14:31:18 Outpatient Johnson, Na STLMLC STLMLC [id number] [facility] 2021-10-22 13:56:02 Outpatient Johnson, Na STLMLC STLMLC [id number] [facility] 2021-10-22 13:55:16 Outpatient Johnson, Na STLMLC STLMLC [id number] [facility] 2021-10-22 13:05:24 Outpatient Johnson, Na STLMLC STLMLC [id number] [facility] 2021-10-22 12:39:24 Outpatient Johnson, Na STLMLC STLMLC [id number] [facility] 2021-10-22 12:38:[address] [facility] [id number] [facility] 2021-10-22 12:05:48 Outpatient Luba Johnson [facility] [id number] [facility] 2021-10-22 11:37:[address] [facility] [id number] [facility] 2024-06-30 09:00:00 2024-06-30 09:41:10 Outpatient R CARLYLE MENEZES [facility] [id number] [facility] 2024-06-30 09:00:00 2024-06-30 09:41:10 Office Visit Carlyle Menezes 1.2.840.1 10203.1.1 3.104.2.7 .3.579364 .8 [id number] [facility] 2024-06-30 00:00:00 2024-06-30 00:00:00 Travel 1.2.840.1 [id number] 3.104.2.7 .3.573396 .8 1.2.840.114 350.1.13.10 4.2.7.3.698 084.8 [id number] [facility] 2024-06-27 13:20:00 2024-06-27 13:31:42 Outpatient R QUENTIN RUELAS [facility] [id number] [facility] 2024-06-27 13:20:00 2024-06-27 13:31:42 Office Visit Quentin Ruelas 1.2.840.1 77445.1.1 3.104.2.7 .3.263407 .8 [id number] [facility] 2024-06-27 00:00:00 2024-06-27 00:00:00 Travel 1.2.840.1 49715.1.1 3.104.2.7 .3.466202 .8 1.2.840.114 350.1.13.10 4.2.7.3.698 084.8 [id number] [facility] 2024-06-21 00:00:00 2024-06-21 12:58:52 Telephone GuillermoRicciadrianna 1.2.840.1 57814.1.1 3.104.2.7 .3.218122 .8 [id number] [facility] 2024-06-20 07:41:33 2024-06-20 23:59:00 Outpatient R GUILLERMO QUENTIN [facility] [id number] [facility] 2024-06-20 07:41:33 2024-06-20 23:59:00 Hospital Encounter Guillermo Quentin 1.2.840.1 00661.1.1 3.104.2.7 .3.314437 .8 [id number] [facility] 2024-06-20 00:00:00 2024-06-20 00:00:00 Travel 1.2.840.1 94144.1.1 3.104.2.7 .3.425359 .8 1.2.840.114 350.1.13.10 4.2.7.3.698 084.8 [id number] [facility] 2024-06-13 11:00:00 2024-06-13 11:00:00 Outpatient R QUENTIN RUELAS [facility] [id number] [facility] 2024-05-30 10:00:00 2024-05-30 10:00:00 Outpatient R QUENTIN RUELAS [facility] [id number] [facility] 2024-05-18 00:00:00 2024-05-18 10:00:01 Telephone Guillermo Quentin 1.2.840.1 10594.1.1 3.104.2.7 .3.545172 .8 [id number] [facility] 2024-05-16 11:30:00 2024-05-16 11:45:00 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, [facility] Lab Main 1.2.840.1 98853.1.1 3.104.2.7 .3.864151 .8 [id number] [facility] 2024-05-16 11:30:00 2024-05-16 11:30:00 Outpatient R QUENTIN RUELAS [facility] [id number] [facility] 2024-05-16 00:00:00 2024-05-16 00:00:00 Orders Only Quentin Ruelas 1.2.840.1 04920.1.1 3.104.2.7 .3.834519 .8 [id number] [facility] 2024-05-16 00:00:00 2024-05-16 00:00:00 Orders Only Quentin Ruelas 1.2.840.1 70333.1.1 3.104.2.7 .3.541868 .8 [id number] [facility] 2024-05-11 13:00:00 2024-05-11 13:15:00 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 Lisa Guan T 1.2.840.1 49498.1.1 3.104.2.7 .3.493591 .8 [id number] [facility] 2024-05-11 13:00:00 2024-05-11 13:00:00 Outpatient R LISA GUAN STRAHIL [facility] [id number] [facility] 2024-05-11 00:00:00 2024-05-11 00:00:00 Travel 1.2.840.1 81929.1.1 3.104.2.7 .3.559261 .8 1.2.840.114 350.1.13.10 4.2.7.3.698 084.8 [id number] [facility] 2024-05-09 14:00:00 2024-05-09 15:18:37 Outpatient R QUENTIN RUELAS [facility] [id number] [facility] 2024-05-09 14:00:00 2024-05-09 15:18:37 Office Visit Quentin Ruleas 1.2.840.1 81533.1.1 3.104.2.7 .3.479396 .8 [id number] [facility] 2024-05-08 00:00:00 2024-05-08 14:41:46 Telephone Quentin Ruelas 1.2.840.1 02526.1.1 3.104.2.7 .3.918959 .8 [id number] [facility] 2024-04-28 00:00:00 2024-05-02 10:12:18 Telephone Quentin Ruelas 1.2.840.1 85706.1.1 3.104.2.7 .3.520824 .8 [id number] [facility] 2024-04-27 08:43:12 2024-04-27 23:59:00 Outpatient R QUENTIN RUELAS [facility] [id number] [facility] 2024-04-27 08:43:12 2024-04-27 23:59:00 Hospital Encounter Quentin Ruelas 1.2.840.1 84890.1.1 3.104.2.7 .3.438498 .8 [id number] [facility] 2024-04-27 00:00:00 2024-04-27 00:00:00 Travel 1.2.840.1 82680.1.1 3.104.2.7 .3.511405 .8 1.2.840.114 350.1.13.10 4.2.7.3.698 084.8 [id number] [facility] 2024-04-19 10:00:00 2024-04-19 10:00:00 Outpatient R QUENTIN RUELAS [facility] [id number] [facility] 2024-04-17 13:00:00 2024-04-17 13:00:00 Outpatient R QUENTIN RUELAS [facility] [id number] [facility] 2024-04-11 00:00:00 2024-04-11 00:00:00 Refill Quentin Ruelas 1.2.840.1 34865.1.1 3.104.2.7 .3.108578 .8 [id number] [facility] 2024-03-29 13:40:00 2024-03-29 13:44:59 Outpatient R QUENTIN RUELAS [facility] [id number] [facility] 2024-03-29 13:40:00 2024-03-29 13:44:59 [facility] 1.2.840.114 350.1.13.10 4.2.7.2.686 [id number] [facility] 2024-03-20 00:00:00 2024-03-20 15:44:15 [facility] 1.2.840.114 350.1.13.10 4.2.7.2.686 [id number] [facility] 2024-03-07 00:00:00 2024-03-08 08:15:11 [facility] 1.2.840.114 350.1.13.10 4.2.7.2.686 [id number] [facility] 2024-02-24 00:00:00 2024-02-24 14:00:03 [facility] 1.2.840.114 350.1.13.10 4.2.7.2.686 [id number] [facility] 2024-02-24 00:00:00 2024-02-24 13:11:40 [facility] 1.2.840.114 350.1.13.10 4.2.7.2.686 [id number] [facility] 2024-02-22 14:00:00 2024-02-22 14:20:00 [facility] 1.2.840.114 350.1.13.10 4.2.7.2.686 [id number] [facility] 2024-02-22 14:00:00 2024-02-22 14:00:00 [facility] [id number] [facility] 2024-02-17 13:30:00 2024-02-17 13:30:00 Outpatient LISS HUNT [facility] [id number] [facility] 2024-02-17 00:00:00 2024-02-17 00:00:00 Travel 1.2.840.1 39542.1.1 3.104.2.7 .3.448661 .8 1.2.840.114 350.1.13.10 4.2.7.3.698 084.8 [id number] [facility] 2024-02-15 00:00:00 2024-02-15 00:00:00 (TEL) [facility] [id number] [facility] 2024-02-11 00:00:00 2024-02-11 00:00:00 OFFICE VISIT ESTAB PT LEVEL 4 [facility] [id number] [facility] 2024-02-11 00:00:00 2024-02-11 00:00:00 WELCOME TO MEDICARE PREV PHY EXAM [facility] [id number] [facility] 2024-01-24 00:00:00 2024-01-24 11:17:36 Refill Guillermo Quentin 1.2.840.1 08868.1.1 3.104.2.7 .3.402037 .8 [id number] [facility] 2023-11-11 10:00:00 2023-11-11 10:44:51 Outpatient TIANA AVENDANO [facility] [id number] [facility] 2023-11-11 00:00:00 2023-11-11 00:00:00 Orders Only Doctor Unassigned, [place] 1.2.840.1 22112.1.1 3.104.2.7 .3.418882 .8 [id number] [facility] 2023-11-11 00:00:00 2023-11-11 00:00:00 Travel 1.2.840.1 39602.1.1 3.104.2.7 .3.055465 .8 1.2.840.114 350.1.13.10 4.2.7.3.698 084.8 [id number] [facility] 2023-10-28 10:45:00 2023-10-28 10:45:00 Outpatient JOE MORENO [facility] [id number] [facility] 2023-10-08 12:45:00 2023-10-08 12:45:00 Outpatient HERMAN KAYE [facility] [id number] [facility] 2023-09-30 00:00:00 2023-09-30 00:00:00 NON-BILLAB LE VISIT [facility] [id number] [facility] 2023-09-14 00:00:00 2023-09-14 00:00:00 Refill Quentin Ruelas 1.2.840.1 29358.1.1 3.104.2.7 .3.281670 .8 [id number] [facility] 2023-09-14 00:00:00 2023-09-14 00:00:00 (TEL) STLC STLC [id number] [facility] 2023-09-06 00:00:00 2023-09-06 00:00:00 (TEL) STLMLC STLMLC [id number] [facility] 2023-08-31 00:00:00 2023-08-31 00:00:00 NON-BILLAB LE VISIT STLC STLC [id number] [facility] 2023-08-12 00:00:00 2023-08-12 00:00:00 NON-BILLAB LE VISIT STLC STLC [id number] [facility] 2023-07-22 00:00:00 2023-07-22 00:00:00 (TEL) STLC STLC [id number] [facility] 2023-07-15 00:00:00 2023-07-15 00:00:00 [facility] 1.2.840.114 350.1.13.10 4.2.7.2.686 [id number] [facility] 2023-07-15 00:00:00 2023-07-15 00:00:00 [facility]phone [facility] 1.2.840.114 350.1.13.10 4.2.7.2.686 [id number] [facility] 2023-07-15 00:00:00 2023-07-15 00:00:00 Orders Only Doctor Unassigned, [place] [facility] 1.2.840.114 350.1.13.10 4.2.7.2.686 [id number] [facility] 2023-07-14 00:00:00 2023-07-14 00:00:00 (TEL) STLC STLC [id number] [facility] 2023-07-13 00:00:00 2023-07-13 00:00:00 OFFICE VISIT ESTAB PT LEVEL 4 STLMLC STLMLC [id number] [facility] 2023-07-13 00:00:00 2023-07-13 00:00:00 (TEL) STLMLC STLMLC [id number] [facility] 2023-07-13 00:00:00 2023-07-13 00:00:00 OFFICE VISIT ESTAB PT LEVEL 4 STLMLC STLMLC [id number] [facility] 2023-07-13 00:00:00 2023-07-13 00:00:00 (TEL) STLMLC STLMLC [id number] [facility] 2023-07-09 15:45:00 2023-07-09 16:01:47 Outpatient HERMAN KAYE [facility] [id number] [facility] 2023-07-09 00:00:00 2023-07-09 00:00:00 Travel 1.2.840.1 30088.1.1 3.104.2.7 .3.202881 .8 1.2.840.114 350.1.13.10 4.2.7.3.698 084.8 [id number] [facility] 2023-07-08 10:00:00 2023-07-08 10:00:00 Outpatient JOE MORENO [facility] [id number] [facility] 2023-06-17 00:00:00 2023-06-17 00:00:00 (TEL) STLMLC STLMLC [id number] [facility] 2023-06-15 00:00:00 2023-06-15 00:00:00 OFFICE VISIT NEW PT LEVEL 4 STLMLC STLMLC [id number] [facility] 2023-06-15 00:00:00 2023-06-15 00:00:00 (TEL) STLMLC STLMLC [id number] [facility] 2023-06-14 00:00:00 2023-06-14 00:00:00 Refill Guillermo Quentin 1..840.1 37196.1.1 3.104.2.7 .3.970458 .8 [id number] [facility] 2023-06-01 00:00:00 2023-06-01 00:00:00 OFFICE VISIT ESTAB PT LEVEL 4 STLMLC STLMLC [id number] [facility] 2023-05-14 00:00:00 2023-05-14 00:00:00 (TEL) STLC STLC [id number] [facility] 2023-04-29 00:00:00 2023-04-29 00:00:00 Telephone Quentin Ruelas 1..840.1 00543.1.1 3.104.2.7 .3.531764 .8 [id number] [facility] 2023-04-19 10:45:00 2023-04-19 10:47:16 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 Guillermo Quentin 2, [facility] 1..840.1 80499.1.1 3.104.2.7 .3.320171 .8 [id number] [facility] 2023-04-19 10:20:00 2023-04-19 10:25:08 Outpatient R QUENTIN RUELAS [facility] [id number] [facility] 2023-04-19 10:20:00 2023-04-19 10:25:08 Office Visit Quentin Ruelas 1.2.840.1 82120.1.1 3.104.2.7 .3.338940 .8 [id number] [facility] 2023-04-19 00:00:00 2023-04-19 00:00:00 Patient Secure Msg Quentin Ruelas 1.2.840.1 49149.1.1 3.104.2.7 .3.548521 .8 [id number] [facility] 2023-04-19 00:00:00 2023-04-19 00:00:00 Travel 1.2.840.1 93748.1.1 3.104.2.7 .3.927448 .8 1.2.840.114 350.1.13.10 4.2.7.3.698 084.8 [id number] [facility] 2023-04-08 10:00:00 2023-04-08 10:30:04 Outpatient JOE MORENO [facility] [id number] [facility] 2023-04-08 00:00:00 2023-04-08 00:00:00 Orders Only Doctor Unassigned, [place] 1.2.840.1 21144.1.1 3.104.2.7 .3.928442 .8 [id number] [facility] 2023-04-08 00:00:00 2023-04-08 00:00:00 Travel 1.2.840.1 62790.1.1 3.104.2.7 .3.742366 .8 1.2.840.114 350.1.13.10 4.2.7.3.698 084.8 [id number] [facility] 2023-02-23 00:00:00 2023-02-23 00:00:00 Refill Quentin Ruelas 1.2.840.1 02712.1.1 3.104.2.7 .3.607785 .8 [id number] [facility] 2023-02-18 08:30:00 2023-02-18 08:30:00 Outpatient JOE MORENO [facility] [id number] [facility] 2022-12-11 00:00:00 2022-12-11 00:00:00 Telephone Quentin Ruelas 1.2.840.1 [id number] 3.104.2.7 .3.643704 .8 [id number] [facility] 2022-12-02 14:40:00 2022-12-02 14:40:00 [facility] [id number] 2022-12-02 14:40:00 2022-12-02 14:40:00 [facility] [id number] 2022-12-02 14:40:00 2022-12-02 14:40:00 [facility] [id number] [facility] 2022-12-02 14:40:00 2022-12-02 14:40:00 [facility] [id number] [facility] 2022-11-05 10:45:00 2022-11-05 11:20:33 Outpatient Javon WATKINSEMMIEDY [facility] [id number] [facility] 2022-11-05 00:00:00 2022-11-05 00:00:00 Travel 1.2.840.1 [id number] 3.104.2.7 .3.542842 .8 1.2.840.114 350.1.13.10 4.2.7.3.698 084.8 [id number] [facility] 2022-11-05 00:00:00 2022-11-05 00:00:00 Orders Only Doctor Unassigned, [place] [facility] 1.2.840.114 350.1.13.10 4.2.7.2.686 [id number] [facility] 2022-10-27 00:00:00 2022-10-27 00:00:00 (TEL) STLMLC STLMLC [id number] [facility] 2022-10-15 10:45:00 2022-10-15 10:45:00 Outpatient Javon WATKINSEMMIEDY [facility] [id number] [facility] 2022-10-14 06:25:00 2022-10-14 15:54:00 Outpatient ERIN SAUNDERS [facility] [address] [facility] 2022-09-18 14:15:00 2022-09-18 14:15:00 Outpatient CHAGO BRITT [facility] [id number] [facility] 2022-08-24 00:00:00 2022-08-24 00:00:00 Refill Quentin Ruelas 1.2.840.1 [id number] 3.104.2.7 .3.682040 .8 [id number] [facility] 2022-08-24 00:00:00 2022-08-24 00:00:00 Refill Quentin Ruelas 1.2.840.1 32348.1.1 3.104.2.7 .3.133413 .8 [id number] [facility] [facility] 00:00:00 2022-08-18 00:00:00 OFFICE VISIT EST PT LEVEL 3 [facility] [id number] [facility] 2022-07-30 10:00:00 2022-07-30 10:37:37 Outpatient Javon HAWKINSBETTE JOE [facility] [id number] [facility] 2022-07-30 00:00:00 2022-07-30 00:00:00 Travel 1.2.840.1 03029.1.1 3.104.2.7 .3.822284 .8 1.2.840.114 350.1.13.10 4.2.7.3.698 084.8 [id number] [facility] 2022-06-03 06:53:00 2022-06-03 17:00:00 Outpatient ERIN SAUNDERS [facility] [address] [facility] 2022-06-03 00:00:00 2022-06-03 00:00:00 (TEL) [facility] [id number] [facility] 2022-05-28 00:00:00 2022-05-28 00:00:00 Orders Only Doctor Unassigned, [place] 1.2.840.1 02417.1.1 3.104.2.7 .3.177341 .8 [id number] [facility] 2022-05-19 00:00:00 2022-05-19 00:00:00 Orders Only Doctor Unassigned, [place] 1.2.840.1 50779.1.1 3.104.2.7 .3.954794 .8 [id number] [facility] 2022-05-19 00:00:00 2022-05-19 00:00:00 (TEL) STLMLC STLMLC [id number] [facility] 2022-05-19 00:00:00 2022-05-19 00:00:00 (TEL) STLMLC STLMLC [id number] [facility] 2022-05-19 00:00:00 2022-05-19 00:00:00 OL DIG E/M SVC 11-20 MIN STLMLC STLMLC [id number] [facility] 2022-04-24 10:45:00 2022-04-24 11:53:48 Outpatient SHANTHI VERDIN [facility] [id number] [facility] 2022-04-24 00:00:00 2022-04-24 00:00:00 Travel 1.2.840.1 72845.1.1 3.104.2.7 .3.964865 .8 1.0.114 350.1.13.10 4.2.7.3.698 084.8 [id number] [facility] 2022-04-22 10:00:00 2022-04-22 10:25:09 Outpatient QUENTIN SORENSEN [facility] [id number] [facility] 2022-04-22 10:00:00 2022-04-22 10:25:09 Office Visit Quentin Ruelas [facility] 1.2840.114 350.1.13.10 4.2.7.2.686 [id number] [facility] 2022-04-22 10:00:00 2022-04-22 10:25:09 Outpatient R QUENTIN RUELAS [facility] [id number] [facility] 2022-04-22 10:00:00 2022-04-22 10:00:00 Outpatient QUENTIN SORENSEN [facility] [id number] [facility] 2022-04-22 00:00:00 2022-04-22 00:00:00 Travel 1.2.840.1 52819.1.1 3.104.2.7 .3.319308 .8 1.2.840.114 350.1.13.10 4.2.7.3.698 084.8 [id number] [facility] 2022-04-02 00:00:00 2022-04-02 00:00:00 (TEL) STLC STLC [id number] [facility] 2022-03-13 00:00:00 2022-03-13 00:00:00 (TEL) STLC STLMLC [id number] [facility] 2022-02-17 00:00:00 2022-02-17 00:00:00 Telephone Guillermo Quentin 1.2.840.1 21227.1.1 3.104.2.7 .3.545951 .8 [id number] [facility] 2022-02-17 00:00:00 2022-02-17 00:00:00 Telephone Guillermo Quentin 1.2.840.1 49285.1.1 3.104.2.7 .3.782204 .8 [id number] [facility] 2022-02-16 00:00:00 2022-02-16 00:00:00 Telephone Guillermo Quentin 1.2.840.1 07586.1.1 3.104.2.7 .3.857584 .8 [id number] [facility] 2022-02-16 00:00:00 2022-02-16 00:00:00 Refill Quentin Ruelas 1..840.1 54862.1.1 3.104.2.7 .3.921862 .8 [id number] [facility] 2022-02-16 00:00:00 2022-02-16 00:00:00 Refill Christine Ruelassantos 1..840.1 63114.1.1 3.104.2.7 .3.816975 .8 [id number] [facility] 2022-02-16 00:00:00 2022-02-16 00:00:00 Telephone Guillermo Quentin 1..840.1 08309.1.1 3.104.2.7 .3.108846 .8 [id number] [facility] 2022-02-16 00:00:00 2022-02-16 00:00:00 PREV VISIT EST AGE 40-64 [facility] [id number] 2022-02-11 00:00:00 2022-02-11 00:00:00 (TEL) [facility] [id number] [facility] 2022-02-06 00:00:00 2022-02-06 00:00:00 Refill Guillermo Quentin 1..840.1 52499.1.1 3.104.2.7 .3.756138 .8 [id number] [facility] 2022-02-06 00:00:00 2022-02-06 00:00:00 Refill Guillermo Quentin 1.2.840.1 15122.1.1 3.104.2.7 .3.622968 .8 [id number] [facility] 2022-01-28 14:45:00 2022-01-28 15:29:44 Office Visit Shantel Fernandez 1..840.1 77537.1.1 3.104.2.7 .3.057726 .8 [id number] [facility] 2022-01-28 14:45:00 2022-01-28 15:29:44 Office Visit Shantel Fernandez S 1.2.840.1 16876.1.1 3.104.2.7 .3.546447 .8 [id number] [facility] 2022-01-28 14:45:00 2022-01-28 14:45:00 Outpatient R SHANTEL FERNANDEZ [facility] [id number] [facility] 2022-01-28 00:00:00 2022-01-28 00:00:00 Travel 1.2.840.1 86634.1.1 3.104.2.7 .3.764354 .8 1.2.840.114 350.1.13.10 4.2.7.3.698 084.8 [id number] [facility] 2022-01-28 00:00:00 2022-01-28 00:00:00 Travel 1.2.840.1 07526.1.1 3.104.2.7 .3.043354 .8 1.2.840.114 350.1.13.10 4.2.7.3.698 084.8 [id number] [facility] 2022-01-26 00:00:00 2022-01-26 00:00:00 Shaina Michel 1.2.840.1 42315.1.1 3.104.2.7 .3.921641 .8 [id number] [facility] 2022-01-26 00:00:00 2022-01-26 00:00:00 Shaina Michel [facility] 1.2.840.114 350.1.13.10 4.2.7.2.686 [id number] [facility] 2022-01-26 00:00:00 2022-01-26 00:00:00 Telephone Shaina Jon 1.2.840.1 71245.1.1 3.104.2.7 .3.170238 .8 [id number] [facility] 2022-01-23 14:59:29 2022-01-23 23:59:00 Hospital Encounter Shaina Jon 1.2.840.1 65279.1.1 3.104.2.7 .3.414744 .8 [id number] [facility] 2022-01-23 14:59:29 2022-01-23 23:59:00 Hospital Encounter [facility] 1..840.114 350.1.13.10 4.2.7.2.686 [id number] [facility] 2022-01-23 14:59:29 2022-01-23 23:59:00 Hospital Encounter Shaina Jon 1.2.840.1 61260.1.1 3.104.2.7 .3.085221 .8 [id number] [facility] 2022-01-23 14:59:29 2022-01-23 14:59:29 Outpatient DONTRELLSTARSHAINA [facility] [id number] [facility] 2022-01-23 14:07:51 2022-01-23 14:58:00 Hospital Encounter Shaina Jon 1.2.840.1 38842.1.1 3.104.2.7 .3.434873 .8 [id number] [facility] 2022-01-23 14:07:51 2022-01-23 14:58:00 Hospital Encounter Shaina Jon REPLACED BY [facility] 1..840.114 350.1.13.10 4.2.7.2.686 [id number] [facility] 2022-01-23 14:07:51 2022-01-23 14:58:00 Hospital Encounter DontrellStarShaina 1.2.840.1 87091.1.1 3.104.2.7 .3.089054 .8 [id number] [facility] 2022-01-23 14:07:51 2022-01-23 14:07:51 Outpatient DONTRELL SHAINA [facility] [id number] [facility] 2022-01-23 10:19:59 2022-01-23 14:06:00 Hospital Encounter Dontrell Shaina 1.2.840.1 60625.1.1 3.104.2.7 .3.683423 .8 [id number] [facility] 2022-01-23 10:19:59 2022-01-23 14:06:00 Outpatient R DONTRELL SHAINA [facility] [id number] [facility] 2022-01-23 10:19:59 2022-01-23 14:06:00 Hospital Encounter Shaina Jon REPLACED BY [facility] 1.2.840.114 350.1.13.10 4.2.7.2.686 [id number] [facility] 2022-01-23 10:19:59 2022-01-23 14:06:00 Hospital Encounter Dontrell Shaina 1.2.840.1 42190.1.1 3.104.2.7 .3.214988 .8 [id number] [facility] 2022-01-23 10:19:59 2022-01-23 10:19:59 Outpatient DONTRELL SHAINA [facility] [id number] [facility] 2022-01-23 00:00:00 2022-01-23 00:00:00 Case Management Shaina Jon 1.2.840.1 76513.1.1 3.104.2.7 .3.040112 .8 [id number] [facility] 2022-01-23 00:00:00 2022-01-23 00:00:00 Letter (Out) Doctor Unassigned, [place] 1.2.840.1 10549.1.1 3.104.2.7 .3.441988 .8 [id number] [facility] 2022-01-23 00:00:00 2022-01-23 00:00:00 Letter (Out) Doctor Unassigned, [place] 1.2.840.1 74908.1.1 3.104.2.7 .3.840478 .8 [id number] [facility] 2022-01-23 00:00:00 2022-01-23 00:00:00 Letter (Out) Doctor Unassigned, [place] [facility] 1.2840.114 350.1.13.10 4.2.7.2.686 [id number] [facility] 2022-01-23 00:00:00 2022-01-23 00:00:00 Letter (Out) Doctor Unassigned, [place] [facility] 1.2.840.114 350.1.13.10 4.2.7.2.686 [id number] [facility] 2022-01-23 00:00:00 2022-01-23 00:00:00 Case Management Shaina Jon REPLACED BY [facility] 1.2840.114 350.1.13.10 4.2.7.2.686 [id number] [facility] 2022-01-23 00:00:00 2022-01-23 00:00:00 Case Management Shaina Jon 1.2.840.1 19136.1.1 3.104.2.7 .3.872824 .8 [id number] [facility] 2022-01-23 00:00:00 2022-01-23 00:00:00 Letter (Out) Doctor Unassigned, [place] 1.2.840.1 03973.1.1 3.104.2.7 .3.650735 .8 [id number] [facility] 2022-01-23 00:00:00 2022-01-23 00:00:00 Letter (Out) Doctor Unassigned, [place] 1.2.840.1 36570.1.1 3.104.2.7 .3.835139 .8 [id number] [facility] 2022-01-22 20:23:20 2022-01-22 23:59:00 Outpatient R KELLY CALLOWAY [facility] [id number] [facility] 2022-01-22 20:23:20 2022-01-22 23:59:00 Hospital Encounter Sekou Kelly REPLACED BY [facility] 1..840.114 350.1.13.10 4.2.7.2.686 [id number] [facility] 2022-01-22 20:23:20 2022-01-22 23:59:00 Hospital Encounter Kelly Calloway 1.2.840.1 41735.1.1 3.104.2.7 .3.523753 .8 [id number] [facility] 2022-01-22 20:20:00 2022-01-22 20:41:48 [facility] 1.2840.114 350.1.13.10 4.2.7.2.686 [id number] [facility] 2022-01-22 20:20:00 2022-01-22 20:41:48 Urgent Care Kelly Calloway 1.2.840.1 79295.1.1 3.104.2.7 .3.431459 .8 [id number] [facility] 2022-01-22 00:00:00 2022-01-22 00:00:00 Travel 1.2.840.1 31919.1.1 3.104.2.7 .3.721292 .8 1.2.840.114 350.1.13.10 4.2.7.3.698 084.8 [id number] [facility] 2021-12-11 00:00:00 2021-12-11 00:00:00 [facility] 1.2.840.114 350.1.13.10 4.2.7.2.686 [id number] [facility] 2021-12-02 14:20:00 2021-12-02 15:05:47 [id number] 2021-12-02 14:20:00 2021-12-02 15:05:47 Office Visit Guillermo [facility] 1.2.840.114 350.1.13.10 4.2.7.2.686 [id number] [facility] 2021-12-02 14:20:00 2021-12-02 15:05:47 [facility] [id number] [facility] 2021-12-02 00:00:00 2021-12-02 00:00:00 Orders Only Doctor Unassigned, [place] [facility] 1.2.840.114 350.1.13.10 4.2.7.2.686 [id number] [facility] 2021-11-28 08:30:00 2021-11-28 09:26:07 Outpatient HERMAN KAYE [facility] [id number] [facility] 2021-11-28 08:30:00 2021-11-28 08:30:00 Outpatient HERMAN KAYE [facility] [id number] [facility] 2021-11-28 00:00:00 2021-11-28 00:00:00 Travel 1.2.840.1 41617.1.1 3.104.2.7 .3.542250 .8 1.2.840.114 350.1.13.10 4.2.7.3.698 084.8 [id number] [facility] 2021-11-18 00:00:00 2021-11-18 00:00:00 OFFICE VISIT ESTAB PT LEVEL 4 STLMLC STLMLC [id number] [facility] 2021-09-11 10:45:00 2021-09-11 11:18:14 Outpatient CE GRANT [facility] [id number] [facility] 2021-09-11 10:45:00 2021-09-11 10:45:00 Outpatient CE GRANT [facility] [id number] [facility] 2021-09-11 00:00:00 2021-09-11 00:00:00 Travel 1.2.840.1 05713.1.1 3.104.2.7 .3.238115 .8 1.2.840.114 350.1.13.10 4.2.7.3.698 084.8 [id number] [facility] 2021-08-14 10:45:00 2021-08-14 11:50:16 Outpatient JOE MORENO [facility] [id number] [facility] 2021-08-14 00:00:00 2021-08-14 00:00:00 Travel 1.2.840.1 01180.1.1 3.104.2.7 .3.674651 .8 1.2.840.114 350.1.13.10 4.2.7.3.698 084.8 [id number] [facility] 2021-08-14 00:00:00 2021-08-14 00:00:00 Orders Only Doctor Unassigned, [place] 1.2.840.1 49919.1.1 3.104.2.7 .3.875243 .8 [id number] [facility] 2021-06-30 00:00:00 2021-06-30 00:00:00 OFFICE VISIT EST PT LEVEL 3 STLMLC STLMLC [id number] [facility] 2021-06-24 00:00:00 2021-06-24 00:00:00 RefQuentin Jaeger 1.2.840.1 36885.1.1 3.104.2.7 .3.706058 .8 [id number] [facility] 2021-05-23 09:15:00 2021-05-23 09:15:00 Outpatient SHANTHI VERDIN [facility] [id number] [facility] 2021-05-23 00:00:00 2021-05-23 00:00:00 Travel 1.2.840.1 97100.1.1 3.104.2.7 .3.988137 .8 1.2.840.114 350.1.13.10 4.2.7.3.698 084.8 [id number] [facility] 2021-04-09 00:00:00 2021-04-09 00:00:00 (TEL) STLMLC STLMLC [id number] [facility] 2021-03-28 00:00:00 2021-03-28 00:00:00 OFFICE VISIT EST PT LEVEL 3 STLMLC STLMLC [id number] [facility] 2020-12-30 10:00:00 2020-12-30 10:00:00 Outpatient QUENTIN SORENSEN [facility] [id number] [facility] 2020-12-18 00:00:00 2020-12-18 00:00:00 Outpatient STLMLC STLMLC [id number] [facility] 2020-12-13 00:00:00 2020-12-13 00:00:00 Outpatient STLMLC STLMLC [id number] [facility] 2020-12-06 00:00:00 2020-12-06 00:00:00 Outpatient STLMLC STLMLC [id number] [facility] 2020-12-06 00:00:00 2020-12-06 00:00:00 Outpatient STLMLC STLMLC [id number] [facility] 2020-12-02 09:20:00 2020-12-02 09:20:00 Outpatient Javon RUELAS QUENTIN [facility] [id number] [facility] 2020-10-31 10:00:00 2020-10-31 10:00:00 Outpatient JOE MORENO [facility] [id number] [facility] 2020-10-03 00:00:00 2020-10-03 00:00:00 Outpatient STLMLC STLMLC [id number] [facility] 2020-08-15 00:00:00 2020-08-15 00:00:00 Outpatient STLMLC STLMLC [id number] [facility] 2020-06-04 14:00:00 2020-06-04 14:00:[address] [facility] [id number] [facility] 2020-05-31 10:08:00 2020-05-31 10:08:00 [facility] [address] [id number] [facility] 2020-05-17 09:15:00 2020-05-17 09:15:00 Outpatient JOE MORENO [facility] [id number] [facility] 2020-05-14 16:00:00 2020-05-14 16:00:00 [address] [facility] [address] [id number] [facility] 2020-05-09 09:15:00 2020-05-09 09:15:00 Outpatient HERMAN KAYE [facility] [id number] [facility] 2020-04-24 09:05:00 2020-04-24 09:05:[address] [facility] [address] [id number] [facility] 2020-04-23 10:53:00 2020-04-23 10:53:00 [facility] [facility] [id number] [facility] 2020-03-14 10:00:00 2020-03-14 10:00:00 Outpatient HERMAN KAYE [facility] [id number] [facility] 2020-01-23 10:30:00 2020-01-23 10:30:00 [facility] [id number] [facility] 2020-01-19 16:03:00 2020-01-19 16:03:[address] [facility] [facility] [id number] [facility] 2020-01-11 10:00:00 2020-01-11 10:00:00 Outpatient HERMAN KAYE [facility] [id number] [facility] 2019-12-07 09:15:00 2019-12-07 09:15:00 Outpatient HERMAN KAYE [facility] [id number] [facility] 2019-11-29 14:40:00 2019-11-29 14:40:00 Outpatient QUENTIN SORENSEN [facility] [id number] [facility] 2019-07-27 16:30:00 2019-07-27 16:30:[address] [facility] [id number] [facility] 2019-07-18 08:20:00 2019-07-18 08:20:[address] [facility] [id number] [facility] 2019-04-14 10:40:00 2019-04-14 10:40:[address] [facility] [id number] [facility] 2019-02-27 16:40:00 2019-02-27 16:40:[address] [facility] [id number] [facility] 2018-09-15 08:45:00 2018-09-15 08:45:00 Outpatient [facility] [id number] [facility] 2018-06-16 10:30:00 2018-06-16 10:30:00 Outpatient [facility] [id number] [facility] 2018-03-16 10:30:00 2018-03-16 10:30:00 Outpatient [facility] [id number] [facility] Results Test Description Test Time Test Comments Results Result Co [facility]2024-[facility]28 00:54:18* Test Item Value Reference Range Interpretation Comme nts Height (test code = 1272918491) 58 in Weight (test code = 3888243994) 128 lbs Systolic BP (test code = 8878773117) 159 mmHg Diastolic BP (test code = 5336144468) 77 mmHg Heart Rate (test code = 5990229941) 80 bpm RVOT diameter (test code = 8331972861) 2.5 cm RVOT Proximal Diameter (test code = 6166729572) 2.60 cm MR max PG (test code = 2304403937) 116.20 mm[Hg] MR max vlad (test code = 2951012923) 539.00 cm/s Ao root diam (test code = 0130787613) 2.80 cm Mr max vlad (test code = 3854011658) 539.0 m/s Aortic root (test code = 8533229583) 2.8 cm Ao root annulus (test code = 6761625420) 2.8 cm BSA (test code = 3047075445) 1.51 m2 LVOT diameter (test code = 3349917385) 1.76 cm LVOT area (test code = 8276015739) 2.43 cm2 LA size (test code = 5721053540) 4.5 cm ACS (test code = 2143782346) 2.00 cm LVIDD (test code = 5169532926) 4.90 cm Left Ventricular End Diastolic Volume by Teichholz Method (test code = 2715997) 113.9 mL IVS (test code = 6009241452) 0.93 cm Interventricular Septum Diastolic Thickness by 2D (test code = 8570152) 0.93 cm LVPWD (test code = 2507486314) 0.94 cm PW (test code = 9974888396) 0.94 cm 0.6-1.1 EF(Teich) (test code = 9564718328) 57.30 % LVIDS (test code = 8233412848) 3.40 cm Left Ventricular End Systolic Volume by Teichholz Method (test code = 2780074) 48.6 mL FS (test code = 8411155459) 30 % EF - 2D (test code = 39807456) 57.30 % TR Peak Vlad (test code = 0773782639) 267.9 cm/s Triscuspid Valve Regurgitation Peak Gradient (test code = 2990535898) 28.7 mmHg PV PEAK VELOCITY (test code = 8194803294) 76.5 cm/s PV peak gradient (test code = 0615420914) 2.34 mmHg MV E-F slope (test code = 3321285395) 37.40 cm/s MV Peak E Vlad (test code = 1382127643) 63.4 cm/s MV valve area p 1/2 method (test code = 1398974896) 3.90 cm2 MV dec slope (test code = 2719214616) 319.70 cm/s2 MV P1/2t max vlad (test code = 3430843871) 61.80 cm/s MV Peak A Vlad (test code = 4339649362) 97.5 cm/s E/A ratio (test code = 2323634036) 0.65 ratio LVOT stroke volume (test code = 6640657299) 56.90 cm3 LVOT peak vlad (test code = 2257483710) 96.9 cm/s LVOT mn grad (test code = 0291071054) 1.4 mmHg AV LVOT peak gradient (test code = 3258350743) 3.8 mmHg LVOT peak VTI (test code = 1841909327) 23.4 cm LV V1 mean (test code = 2492098159) 52.70 cm/s Aortic valve mean velocity (test code = 1572770566) 88.8 cm/s Ao peak vlad (test code = 7178728760) 146.0 cm/s Ao VTI (test code = 9101318829) 32.5 cm AV area by cont VTI (test code = 0232175739) 1.8 cm2 AV area peak vlad (test code = 7309377269) 1.6 cm2 Ao max PG (test code = 8075949589) 8.50 mm[Hg] AV peak gradient (test code = 7663923089) 8.5 mmHg AV valve area (test code = 1105225348) 1.75 cm2 AV mean gradient (test code = 9923543350) 3.7 mmHg LAV(MOD-sp4) (test code = 1019752123) 45.20 mL LA Volume Index (BP) (test code = 0437387901) 28.5 mL/m2 LA volume (BP) (test code = 2484200635) 42.9 mL LAV(MOD-sp2) (test code = 4261876281) 41.40 mL A4C EF (test code = 0790976323) 57.60 % EF(sp4-el) (test code = 1063918252) 61.20 % SV(MOD-sp4) (test code = 3770602627) 34.20 mL SV(sp4-el) (test code = 3956489369) 36.40 mL RVOT area (test code = 6781381205) 4.91 cm2 Radiology Study observation (narrative) (test code = 55402-7) DIANA (test code = DIANA) ?Left?Ventricle: Left ventricle size is normal. Normal wall thickness. Normal wall motion. Normal systolic function with a visually estimated EF of 60 - 65%. There is impaired relaxation. ?Right?Ventricle: Right ventricle size is normal. Normal systolic function. ?Tricuspid?Valve: Right ventricular systolic pressure is normal. ?RA pressure is 0-5 mmHg. ?Left?Atrium: Left atrium is mildly dilated. ?Aorta: Mildly enlarged ascending aorta (3.3 cm). Left VentricleLeft ventricle size is normal. Normal wall thickness. Normal wall motion. Normal systolic function with a visually estimated EF of 60 - 65%. There is impaired relaxation.Right VentricleRight ventricle size is normal. Normal systolic function.Left AtriumLeft atrium is mildly dilated.Right AtriumRight atrium size is normal.IVC/SVCIVC diameter is less than or equal to 21 mm and decreases greater than 50% during inspiration; therefore the estimated right atrial pressure is normal (~0-5 mmHg).Mitral ValveMild mitral annular calcification. Trace transvalvular regurgitation.Tricusp id ValveTricuspid valve structure is normal. Trace transvalvular regurgitation. Right ventricular systolic pressure is normal. RA pressure is 0-5 mmHg.Aortic ValveTricuspid.Pulmon ic ValveValve structure is normal. Mild transvalvular regurgitation.Ascendi ng AortaMildly enlarged ascending aorta (3.3 cm).PericardiumThe pericardium is normal. No pericardial effusion.Study DetailsStudy quality was adequate. A complete echocardiogram was performed using 2D, color flow Doppler and spectral Doppler. General acute hospital W/AUTO [id number] 00:00:00* Test Item Value Reference Range Interpretation Comme nts NUCLEATED RBCS (test code = 46189-2) 0.0 /100 WBC'S See_Comment [Automated [employer]] The system which generated this result transmitted reference range: 0.0 /100 WBC'S. The reference range was not used to interpret this result as normal/abnormal. ABSOLUTE EOSINOPHILS (test code = 28677-5) 0.29 K/UL See_Comment [Automated [employer]] The system which generated this result transmitted reference range: 0.00-0.50 K/UL. The reference range was not used to interpret this result as normal/abnormal. ABSOLUTE LYMPHOCYTES (test code = 03837-8) 1.86 K/UL See_Comment [Automated [employer]] The system which generated this result transmitted reference range: 1.00-4.00 K/UL. The reference range was not used to interpret this result as normal/abnormal. ABSOLUTE MONOCYTES (test code = 50746-6) 0.57 K/UL See_Comment [Automated [employer]] The system which generated this result transmitted reference range: 0.20-1.00 K/UL. The reference range was not used to interpret this result as normal/abnormal. ABSOLUTE NEUTROPHILS (test code = 68156-4) 5.99 K/UL See_Comment [Automated [employer]] The system which generated this result transmitted reference range: 1.50-7.50 K/UL. The reference range was not used to interpret this result as normal/abnormal. BASOPHILS (test code = 14552-0) 1.5 % EOSINOPHILS (test code = 44538-8) 3.3 % HEMATOCRIT (test code = 50391-9) 44.8 % See_Comment [Automated messa ge] The [...] result as normal/abnormal. LYMPHOCYTES (test code = 10719-2) 20.9 % MCH (test code = 33348-3) 32.5 PG See_Comment [Automated messa ge] The system which generated this result transmitted reference range: 25.0-33.0 PG. The reference range was not used to interpret this result as normal/abnormal. MCHC (test code = 35610-2) 34.2 G/DL See_Comment [Automated messa ge] The system which generated this result transmitted reference range: 31.0-36.0 G/DL. The reference range was not used to interpret this result as normal/abnormal. MCV (test code = 96586-3) 95.1 fL See_Comment [Automated messa ge] The system which generated this result transmitted reference range: 80.0-99.0 fL. The reference range was not used to interpret this result as normal/abnormal. MONOCYTES (test code = 04945-3) 6.4 % NEUTROPHILS (test code = 94406-6) 67.1 % PLATELET COUNT (test code = 98473-1) 290 K/UL See_Comment [Automated messa ge] The system which generated this result transmitted reference range: 130-400 K/UL. The reference range was not used to interpret this result as normal/abnormal. RBC (test code = 05414-7) 4.71 M/UL See_Comment [Automated messa ge] The system which generated this result transmitted reference range: 3.80-5.40 M/UL. The reference range was not used to interpret this result as normal/abnormal. RDW (test code = 06435-1) 13.2 % See_Comment [Automated messa ge] The system which generated this result transmitted reference range: 11.5-15.0 %. The reference range was not used to interpret this result as normal/abnormal. WBC (test code = 97591-3) 8.9 K/UL See_Comment [Automated [employer]] The system which generated this result transmitted reference range: 3.5-11.0 K/UL. The reference range was not used to interpret this result as normal/abnormal. 3D SCR VIKAS BILAT W/CAD3D SCR VIKAS BILAT W/CADMRI Knee Right Wo ContMRI Knee Right Wo Cont Notes Date/Time Note Provider Source 2024-06-21 12:49:23 Patient scheduled July 03, 2024 with vascular. Cony Watkins [facility] 2024-06-21 10:48:03 Images from the original note were not included. Notified pt of physician review and recommendations from recent renal US. Pt verbalized understanding. Will forward to PSS for appt to be made Quentin Ruelas MD P Cardiology Nurse Ultrasound showed evidence of renal artery stenosis. Please help make appointment with [facility] vascular surgery clinic. Berta Kraus RN [facility] 2024-06-21 08:45:23 Images from the original note were not included. Attempted to contact patient to discuss test results, no answer I left a voice message to call back. Quentin Ruelas MD P Cardiology Nurse Ultrasound showed evidence of renal artery stenosis. Please help make appointment with [facility] vascular surgery clinic. Sun Smith MA [facility] 2024-05-18 09:57:26 Images from the original note were not included. Notified pt of physician review and recommendations from sleep study and labs. Pt verbalized understanding. Quentin Ruelas MD P Cardiology Nurse Sleep study showed no sleep apnea. Labs are stable. No changes to make. Follow-up as scheduled. Berta Kraus RN [facility] 2024-05-16 11:30:00 Images from the original note were not included. Venipuncture collection performed by clean technique on the left anticubitus. Total of 1 attempts were made. Slight pressure and a bandage/dressing were applied to the site(s). The patient experienced no complications. The following specimens were processed according to instructions and sent to [facility] laboratories per lab order on 05/09/24: LT BLUE SST 1 RED LAV PPT DK GREEN (LiHep) DK GREEN (SodH) WONG DK BLUE (K2) DK BLUE (S) ACD Blood Culture NIPT/NTD T [facility] 2024-05-09 14:00:00 Addended by: QUENTIN RUELAS MD on: 06/21/2024 08:16 AM Modules accepted: Orders T [facility] 2024-05-08 14:38:28 Spoke with patient. For the [...] seen in the ER. Molly Carranza RN [facility] 2024-05-08 14:22:35 Michelle Israel is a 68 year old female Pts bp is currently 200/100. She said her bottom number has been high over the last several days. She thinks it may be due to medication Please advise Sophia Moseley [facility] 2024-05-02 10:11:55 Spoke with patient. Echo results given. Pt pleased and verbally understood. Emmanuel Dalton MA [facility] 2024-04-28 14:18:05 Michelle Israel is a 68 year old female Pt returning JP Shane's call. Was unable to connect to JP Shane. Please advise Please call at [phone] Lilibeth Clark [facility] 2024-04-28 14:12:21 Images from the original note were not included. Attempted to contact patient with results/recommendations. LVM for patient to return call to [phone]., Quentin Ruelas MD P Cardiology Nurse Echo showed ejection fraction remains normal. Continue medications. Svitlana Chairez MA [facility] 2024-03-20 15:42:[address] Menard's reponse to STOP Amlodipine. Verbalized understanding, will continue to monitor BP and will contact clinic if becomes elevated. Has appointment next week in clinic Bethany Rosario RN [facility] 2024-03-20 15:36:32 Stop amlodipine [facility] 2024-03-20 14:36:[address] Ruelas for advice [facility] 2024-03-20 13:07:49 Copied from [facility] #[id number]. Topic: Clinical - Medical Advice >> Mar 20, 2024 1:03 PM Patient Charge Master Coordinator wrote: Michelle Israel is a 68 year old female [...] are still swelling. Please advise. Elis Alaniz [facility] 2024-03-08 08:11:45 Spoke with patient. She states [...] worse. Patient verbalized understanding. Molly Carranza RN [facility] 2024-03-07 14:38:39 Patient called to let provider know that he is currently experiencing ankle swelling. She states she was advised by provider to update him on any swelling that may occur Lindsey Curtis [facility] 2024-02-24 13:28:53 Michelle Israel is a 68 year old female patient calling was told to follow up with Dr. Ruelas in one month from 02/22/24 visit. Please call [phone] Roxy Brenner [facility] 2024-02-24 13:11:23 Patient has been rescheduled to same day as appt with guillermo Shyanne Plummer [facility] 2024-02-24 12:40:57 Copied from [facility] #[id number]. Topic: Appointment - Reschedule Appointment >> February 24, 2024 12:39 PM Patient Charge Master Coordinator wrote: Michelle Israel is a 68 year old female Pt calling to r/s echo for [place] location. Pt would like appt. to be the same day as her f/u on 04/19/24 after 1120am. Please advise. Edgar Shaw [facility] 2024-01-24 11:17:31 Images from the original note were not included. Refill approved per cardiology protocol: Cardiovascular: Beta Blockers Fcteod9701/24/2024 11:05 AM Protocol Details Valid encounter within last 12 months Heart rate within normal limits and completed in the last 12 months Sun Smith MA [facility] 2023-06-14 13:14:40 Formatting of this n ote is different from the original. Images from the original note were not included. Refill approved per cardiology protocol: Cardiovascular: ?Beta Blockers Passed 06/14/2023 11:27 AM Protocol Details Valid encounter within last 12 months Heart rate within normal limits and completed in the last 12 months Sun Smith MA [facility] 2023-04-29 09:27:48 Formatting of this n ote might be different from the original. Results shared, verbalized understanding Bethany Rosario RN [facility] 2023-04-19 10:45:00 Formatting of this n ote is different from the original. Images from the original note were not included. Venipuncture collection performed by clean technique on the left anticubitus. Total of 1 attempts were made. Slight pressure and a bandage/dressing were applied to the site(s). The patient experienced no complications. The following specimens were processed according to instructions and sent to [facility] laboratories per lab order on 04/19/2023 : LT BLUE SST 1 RED LAV PPT DK GREEN (LiHep) DK GREEN (SodH) WONG DK BLUE (K2) DK BLUE (S) ACD Blood Culture NIPT/NTD [facility]
--- NOTE | 2024-07-18 07:52 | RAD REPORT ---
EXAMINATION: ONE VIEW CHEST XR CLINICAL INDICATION: Cough;Dyspnea TECHNIQUE: Frontal chest projection is submitted. Examination is limited by patient positioning and t echnique. COMPARISON: 08/02/2023 FINDINGS: Mild to moderate bilateral pulmonary opacities are present likely representing infection/pneumonia. T he heart is upper limit of normal in size. No displaced fractures identified. IMPRESSION: Uluo-[id number]-[id number] bilateral pulmonary opacities likely represents pulmonary edema or pneumonia.
[2024-07-18 08:18] LABS: Absolute Basophils 0.1 K/uL (0-0.5); Absolute Lymphocytes (CBC) 2.1 K/uL (0.7-4.9); Absolute Monocytes 0.6 K/uL (0.1-1.3); Absolute Neutrophil 13.2 K/uL (1.8-8.0); Basophils % 0.6 % (0-1.3); Eosinophils % 0.2 % (0-4.4); Hematocrit 32.8 % (36.0-45.0); Hemoglobin 10.5 g/dL (12.0-15.0); Lymphocytes % 13.1 % (15.3-44.8); MCH 34.3 pg (27.0-35.0); MCHC 32.2 g/dL (32.0-36.0); MCV 106.7 fL (80-100); MPV 9.3 fL (7.6-11.3); Monocytes % 3.8 % (3.3-12.3); Neutrophils % 82.3 % (41.7-73.7); Nucleated RBC Absolute Count 0.2 (0-0); Platelets 238 thou/uL (152-406); RBC Red Blood Cell Count 3.07 M/uL (3.86-4.86); Red Cell Distribution Width 14.7 % (12.1-15.2)
[2024-07-18 08:26] LABS: D-Dimer 1.095 FEUug/mL (0-0.500); PT Prothrombin Time 11.5 SECONDS (9.4-12.5); PTT, Activated Partial Thromb 24.5 SECONDS (24.3-36.9); Protime INR 1.03
[2024-07-18] MEDS ORDERED: ACETAMINOPHEN 500 MG TAB ONE (08:30)
[2024-07-18 08:37] LABS: Albumin 3.3 g/dL (3.4-5.0); Anion Gap 24.4 mEq/L (5.0-15.0); Bilirubin Total 0.9 mg/dL (0.2-1.0); Globulin 3.4 g/dL (2.3-3.5); Potassium 4.4 mEq/L (3.5-5.1); Protein, Total 6.7 g/dL (6.4-8.2)
[2024-07-18 08:39] LABS: Troponin High Sensitivity 1031.9 pg/mL (<58.9)
--- NOTE | 2024-07-18 09:10 | RAD REPORT ---
EXAMINATION: CTA CHEST PE CLINICAL INDICATION: DYSPNEA TECHNIQUE: This examination was performed according to an angiographic protocol with 3D post-processi ng. This involves 3D reconstructions, MIPs, volume rendered images and/or shaded surface rendering. One or more of the following dose reduction techniques were used: Automated exposure control, adjustm ent of the mA and/or kV according to patient size, and/or iterative reconstruction. Unless otherwise specified, incidental findings do not require dedicated imaging follow-up. COMPARISON: No prior exam. FINDINGS: PULMONARY ARTERIES: Normal caliber. No evidence of pulmonary emboli to the subsegmental level. THORACIC AORTA: Normal caliber and configuration. Intraluminal assessment is suboptimal due to lack o f contrast opacification. LUNGS: No pulmonary nodule or infiltrate. Mild interstitial edema suspected in the dependent basilar lung jansen. PLEURA: No pleural effusion. No pneumothorax. MEDIASTINUM AND LYMPH NODES: No mediastinal mass or fluid collection. Normal size mediastinal, hilar, and axillary lymph nodes. OSSEOUS STRUCTURES AND CHEST WALL: Intact. UPPER ABDOMEN: Mild diffuse fatty liver. IMPRESSION: No evidence of pulmonary emboli to the subsegmental level. Mild dependent interstitial pulmonary edema. Mild fatty liver.
--- NOTE | 2024-07-18 09:19 | EDPHYS ---
Physician Documentation [facility] Name: Michelle Carlson Age: 68 yrs Sex: Female : 1955 Arrival Date: 07/18/2024 Time: 07:12 Bed 2 Private MD: ED Physician Lavon Mcgovern HPI: 07/18 11:01 This 68 yrs old Female presents to ER via EMS with complaints of Shortness Of Breath. ms3 11:01 68-year-old female with past medical history of hyperlipidemia, hypertension, ms3 myocardial infarction, GERD presents to the emergency department via [facility] for shortness of breath that is been ongoing for 2 days. On EMS arrival patient was diaphoretic and wheezing with a heart rate of 200 with atrial fibrillation with RVR. Patient was given a DuoNeb and 5 mg of metoprolol with improvement of her heart rate to the 120s. Patient is without pain. Patient denies any alleviating or inciting factors.. Historical: - Allergies: 07:21 PENICILLINS; ko1 - Home Meds: 07:21 duloxetine 60 mg oral Capsule, Delayed Release Sprinkle 2 caps daily [Active]; ko1 omeprazole 40 mg Oral capsule,delayed release (e.c.) 1 cap [Active]; rosuvastatin 20 mg oral tablet [Active]; carvedilol 25 mg oral tablet 1 tab [Active]; bupropion HCl 450 mg Oral Tablet, Extended Release 24 hr 1 tab [Active]; spironolactone 25 mg Oral tablet [Active]; lisinopril 20 mg Oral tablet [Active]; metoclopramide HCl 5 mg Oral tablet [Active]; buprenorphine-naloxone 4-1 mg sublingual Film [Active]; aspirin 81 mg Oral tablet,chewable [Active]; - PMHx: 07:21 Hypercholesterolemia; Hypertensive disorder; Myocardial infarction; Gastroesophageal ko1 reflux disease; Depressive disorder; - PSHx: 07:21 Total abdominal hysterectomy; ko1 - Immunization history:: Adult Immunizations unknown. - Infectious Disease History:: Denies. - Social history:: Smoking status: Patient/guardian denies using tobacco, but has a distant history of tobacco abuse. ROS: 11:01 Constitutional: Negative for fever, and chills. Cardiovascular: Negative for chest ms3 pain, and palpitations. 11:01 Abdomen/GI: Negative for abdominal pain, nausea, vomiting, diarrhea, and constipation, MS/Extremity: Negative for injury and deformity, Skin: Negative for injury, rash, and discoloration, 11:01 Respiratory: Positive for cough, shortness of breath, Exam: 11:01 Constitutional: This is a well developed, well nourished patient who is awake, alert, ms3 and in no acute distress. Head/Face: Normocephalic, atraumatic. Chest/axilla: Normal chest wall appearance and motion. Nontender with no deformity. Cardiovascular: Regular rate and rhythm with a normal S1 and S2. No gallops, murmurs, or rubs. Normal PMI, no JVD. No pulse deficits. 11:01 Abdomen/GI: Soft, non-tender, with normal bowel sounds. No distension or tympany. No guarding or rebound. No evidence of tenderness throughout. 11:01 Respiratory: moderate respiratory distress is noted, Respirations: labored breathing, that is moderate, Breath sounds: are clear throughout, no bronchial sounds, no rales, rhonchi, no wheezing, 11:01 ECG was reviewed by the Attending Physician. ms3 Vital Signs: 07:16 BP 139 / 106; Pulse 138; Resp 34; Temp 97; Pulse Ox 97% on BiPAP; FiO2 40 %; ko1 09:10 BP 110 / 81; Pulse 123; Resp 16; Pulse Ox 90% on 4 lpm NC; ko1 10:04 BP 102 / 79; Pulse 120; Resp 19; Pulse Ox 96% on 4 lpm NC; ko1 10:12 Weight 56.7 kg; Height 4 ft. 10 in. ; ko1 10:12 Body Mass Index 26.12 (56.70 kg, 147.32 cm) ko1 MDM: 07:21 Medical Screening Exam initiated ms3 08:41 ED course: Will give patient 150 ml fluids (in Levoquin) instead of 30 ml/kg due to ms3 concern for fluid overload. 09:01 ED course: Sepsis re-evaluation complete. ms3 11:04 Differential diagnosis: CHF exacerbation, Chronic Obstructive Pulmonary Disease ms3 Myocardial Infarction pneumonia, pulmonary edema, Pulmonary Embolism. Data reviewed: vital signs, nurses notes, lab test result(s), EKG, radiologic studies, and as a result, I will admit patient. Consideration of Admission/Observation Patient was admitted/placed on observation. Management of patient was discussed with the following: Hospitalist: Ham on behalf of Dr Xiang Jim. I considered the following discharge prescriptions or medication management in the emergency department Medications were administered in the Emergency Department. See MAR. Independent interpretation of the following test(s) in the Emergency Department EKG: See my EKG interpretation above library monitor: rate is 128 beats/min, Rhythm is sinus tachycardia, with no ectopy, Interpretation: tachycardia. Counseling: I had a detailed discussion with the patient and/or guardian regarding the historical points, exam findings, and any diagnostic results supporting the discharge/admit diagnosis, lab results, radiology results, the need for further work-up and treatment in the hospital. 07/18 07:21 Order name: Blood Culture Adult (2) ms3 07/18 07:21 Order name: CBC with Diff; Complete Time: 08:40 ms3 07/18 07:21 Order name: CMP; Complete Time: 08:40 ms3 07/18 07:21 Order name: Lactate w/ 2H reflex if indic.; Complete Time: 08:40 ms3 07/18 07:21 Order name: Protime (+inr); Complete Time: 08:40 ms3 07/18 07:21 Order name: Ptt, Activated; Complete Time: 08:40 ms3 07/18 07:21 Order name: Urinalysis w/ reflexes; Complete Time: 11:37 ms3 07/18 07:21 Order name: D-Dimer; Complete Time: 08:40 ms3 07/18 07:21 Order name: Troponin High Sensitivity; Complete Time: 08:40 ms3 07/18 07:21 Order name: BNP; Complete Time: 08:40 ms3 07/18 10:39 Order name: Ghost Lactate-NO COLLECT Timer; Complete Time: 11:19 EDMS 07/18 11:26 Order name: Lactate Sepsis 2 HR Follow-up; Complete Time: 11:37 EDMS 07/18 13:42 Order name: Troponin High Sensitivity EDMS 07/18 07:21 Order name: Chest Single View XRAY; Complete Time: 08:06 ms3 07/18 08:44 Order name: CT Chest For PE Angio; Complete Time: 09:12 ms3 07/18 09:23 Order name: Echo with Doppler EDMS 07/18 07:21 Order name: Accucheck; Complete Time: 08:20 ms3 07/18 07:21 Order name: Cardiac monitoring; Complete Time: 08:20 ms3 07/18 07:21 Order name: EKG - Nurse/Tech; Complete Time: 08:20 ms3 07/18 07:21 Order name: IV Saline Lock - Large Bore; Complete Time: 08:20 ms3 07/18 07:21 Order name: Labs collected and sent; Complete Time: 08:20 ms3 07/18 07:21 Order name: O2 Per Protocol; Complete Time: 08:20 ms3 07/18 07:21 Order name: O2 Sat Monitoring; Complete Time: 08:20 ms3 07/18 07:21 Order name: Vital Signs; Complete Time: 08:20 ms3 07/18 10:05 Order name: NPO: OK for Aspirin; Complete Time: 10:09 la1 EC:01 Rate is 132 beats/min. Rhythm is regular. Left axis deviation noted. QRS interval is ms3 normal. Clinical impression: Sinus tachycardia. Interpreted by me. Reviewed by me. Administered Medications: 08:28 Drug: levofloxacin IVPB 750 mg 150 ml IVPB once over 90 mins Volume: 150 ml; Route: ko1 IVPB; Infused Over: 90 mins; Site: right wrist; 10:03 Follow up: Response: No adverse reaction; IV Status: Completed infusion; IV Intake: ko1 150ml 08:34 Drug: Acetaminophen PO 1000 mg PO once Route: PO; ko1 09:04 Follow up: Response: No adverse reaction; Pain is decreased ko1 08:44 Not Given (per Dr. Huffman): ns 0.9% 1000 ml IV at 1000 ml once; to be given as a bolus hb over 60 minutes 10:20 Drug: Aspirin PO Chewable Tablet 324 mg PO once; 81 mg tablets x 4 Route: PO; ko1 10:50 Follow up: Response: No adverse reaction ko1 10:20 Drug: Furosemide IVP 40 mg IVP once; give over 2 minutes Route: IVP; Site: right wrist; ko1 10:35 Follow up: Response: No adverse reaction ko1 10:36 Drug: Heparin (MN-Bolus No thrombolytic) - HEParin IVP 60 units/kg IVP once; Max 5000 ko1 units {Co-Signature: cm10 (Domenica Quintero RN).} Route: IVP; Site: right hand; 10:51 Follow up: Response: No adverse reaction ko1 10:38 Drug: Heparin (MN Drip) 12 units/kg/hr - ([place] [address] units, D5W IV 500 ml) IV at ko1 calculated rate Per protocol; Max initial rate 1000 units/hr {Co-Signature: concepción (Carolyn Cooper RN).} Route: IV; Rate: calculated rate; Site: right hand; 10:53 Follow up: Response: No adverse reaction ko1 12:07 Follow up: IV Status: Infusion continued upon admission ko1 Disposition: 11:04 Critical Care:. ms3 Disposition Summary: 07/18/24 09:19 Hospitalization Ordered Notes: Hospitalization Status: Inpatient Admission ms3 Provider: John Swenson ms3 Location: Intensive Care Unit ms3 Condition: Stable ms3 Problem: new ms3 Symptoms: are unchanged ms3 Bed/Room Type: [place] ms3 Room Assignment: 3-(07/18/24 12:22) bd Diagnosis - Severe sepsis with septic shock ms3 - Heart failure, unspecified ms3 Forms: - Medication Reconciliation Form ms3 - SBAR form ms3 - Leadership Thank You Letter ms3 Critical care time excluding procedures: 11:04 Critical care time: Bedside Care: 50 minutes, Consultation: 10 minutes. Total time: 60 ms3 minutes Signatures: Dispatcher [employer] EDCorin Thomas Lee, [employer]Cla1 Lavon Mcgovern DO DO ms3 Radha Monzon RN RN ko1 Alba Solis RN, Clarissa RN cm10 Carolyn Cooper RN mb9 Corrections: (The following items were deleted from the chart) 07:21 07:21 BLOOD CULTURE*+BA.LAB.BRZ ordered. EDMS EDMS 07:21 07:21 CBC+H.LAB.BRZ ordered. EDMS EDMS 07:21 07:21 COMPREHENSIVE METABOLIC PANEL+C.LAB.BRZ ordered. EDMS EDMS 07:21 07:21 LACTATE+C.LAB.BRZ ordered. EDMS EDMS 07:21 07:21 PROTIME (+INR)+COAG.LAB.BRZ ordered. EDMS EDMS 07:21 07:21 PTT, ACTIVATED+COAG.LAB.BRZ ordered. EDMS EDMS 07: 07:21 Urinalysis+U.LAB.BRZ ordered. EDMS EDMS 07: 07:21 Chest Single View+RAD.RAD.BRZ ordered. EDMS EDMS : 07:22 D-DIMER+COAG.LAB.BRZ ordered. EDMS EDMS : 07:22 Troponin High Sensitivity+C.LAB.BRZ ordered. EDMS EDMS : 07:22 PROBNP+C.LAB.BRZ ordered. EDMS EDMS 12: 09:19 ms3 bd
--- NOTE | 2024-07-18 09:19 | ER ---
Nurse's Notes [facility] Name: Michelle Carlson Age: 68 yrs Sex: Female : 1955 Arrival Date: 07/18/2024 Time: 07:12 Bed 2 Private MD: Diagnosis: Severe sepsis with septic shock;Heart failure, unspecified Presentation: 07/18 07:16 Chief complaint: EMS states: patient called neighbor for shortness of breath, she has ko1 not been feeling well for a few days. Upon arrival, patients heart rate was 200 in afib. No hx of afib. Coronavirus screen: At this time, the client does not indicate any symptoms associated with coronavirus-19. Ebola Screen: No symptoms or risks identified at this time. Initial Sepsis Screen: Does the patient meet any 2 criteria? RR > 20 per min. HR > 90 bpm. Yes Does the patient have a suspected source of infection? No. Patient's initial sepsis screen is negative. Risk Assessment: Do you want to hurt yourself or someone else? Patient reports no desire to harm self or others. Onset of symptoms is unknown. Care prior to arrival: Medication(s) given: Albuterol Neb x 1, Atrovent Neb x 1, Metoprolol 5mg IV IV initiated. 20 GA, in the right antecubital area, Med neb given. Oxygen administered. via CPAP or BiPAP. 07:16 Method Of Arrival: EMS: [facility] ko 07:16 Acuity: UYEN 2 ko1 Triage Assessment: 07:21 General: Appears ill, Behavior is calm, cooperative, appropriate for age. Pain: Denies ko1 pain. EENT: No deficits noted. Neuro: No deficits noted. Cardiovascular: Rhythm is atrial fibrillation with rapid ventricular response. Respiratory: Respiratory effort is labored, Respiratory pattern is regular, symmetrical, tachypnea Patient placed on BiPAP: Inspiratory Pressure: 14 Expiratory (EPAP) Pressure: 6 FiO2%: 40 Respiratory Rate: 20. GI: No deficits noted. : No deficits noted. Derm: Skin is clammy, Skin is normal, Skin temperature is warm. Musculoskeletal: No deficits noted. Historical: - Allergies: 07:21 PENICILLINS; ko1 - Home Meds: 07:21 duloxetine 60 mg oral Capsule, Delayed Release Sprinkle 2 caps daily [Active]; ko1 omeprazole 40 mg Oral capsule,delayed release (e.c.) 1 cap [Active]; rosuvastatin 20 mg oral tablet [Active]; carvedilol 25 mg oral tablet 1 tab [Active]; bupropion HCl 450 mg Oral Tablet, Extended Release 24 hr 1 tab [Active]; spironolactone 25 mg Oral tablet [Active]; lisinopril 20 mg Oral tablet [Active]; metoclopramide HCl 5 mg Oral tablet [Active]; buprenorphine-naloxone 4-1 mg sublingual Film [Active]; aspirin 81 mg Oral tablet,chewable [Active]; - PMHx: 07:21 Hypercholesterolemia; Hypertensive disorder; Myocardial infarction; Gastroesophageal ko1 reflux disease; Depressive disorder; - PSHx: 07:21 Total abdominal hysterectomy; ko1 - Immunization history:: Adult Immunizations unknown. - Infectious Disease History:: Denies. - Social history:: Smoking status: Patient/guardian denies using tobacco, but has a distant history of tobacco abuse. Screenin:28 [facility] ED Fall Risk Assessment (Adult) History of falling in the last 3 months, ko1 including since admission No falls in past 3 months (0 pts) Confusion or Disorientation No (0 pts) Intoxicated or Sedated No (0 pts) Impaired Gait No (0 pts) Mobility Assist Device Used No (0 pt) Altered Elimination No (0 pt) Score/Fall Risk Level 0 - 2 = Low Risk Oriented to surroundings, Maintained a safe environment, Educated pt \T\ family on fall prevention, incl call for assistance when getting out of bed, Assessed \T\ reinforced patient's understanding of fall precautions, Provided non-skid footwear, Hourly rounding (assess needs \T\ fall precautionary measures) done. Abuse screen: Denies threats or abuse. Denies injuries from another. Nutritional screening: No deficits noted. Tuberculosis screening: No symptoms or risk factors identified. Assessment: 07:28 Reassessment: see triage note. ko1 08:00 Reassessment: No changes from previously documented assessment. Patient and/or family ll1 updated on plan of care and expected duration. Pain level reassessed. Patient states feeling better. 09:10 Cardiovascular: Rhythm is sinus tachycardia. ko1 Vital Signs: 07:16 BP 139 / 106; Pulse 138; Resp 34; Temp 97; Pulse Ox 97% on BiPAP; FiO2 40 %; ko1 09:10 BP 110 / 81; Pulse 123; Resp 16; Pulse Ox 90% on 4 lpm NC; ko1 10:04 BP 102 / 79; Pulse 120; Resp 19; Pulse Ox 96% on 4 lpm NC; ko1 10:12 Weight 56.7 kg; Height 4 ft. 10 in. ; ko1 10:12 Body Mass Index 26.12 (56.70 kg, 147.32 cm) ko1 Vitals: 10:04 Cardiac Rhythm Assessment Regular Sinus tach. ko1 ED Course: 07:15 Patient arrived in ED. ko1 07:20 Lavon Mcgovern DO is Attending Physician. ms3 07:21 Triage completed. ko1 07:21 Arm band placed on right wrist. Patient placed in an exam room, on a stretcher, on ko1 oxygen, on residential monitor, on pulse oximetry. 07:28 Patient has correct armband on for positive identification. Allergy band placed. Placed ko1 in gown. Bed in low position. Call light in reach. Side rails up X2. Provided Education on: labs, meds. Client placed on continuous cardiac and pulse oximetry monitoring. NIBP monitoring applied. monitoring and evaluation advisor on. Door closed. Noise minimized. Lights dimmed. Warm blanket given. Pillow given. 07:28 Maintain EMS IV. Dressing intact. Good blood return noted. Site clean \T\ dry. Gauge \T\ ko 1 site: 20g right AC. Flushed with 10 mL NS. 07:29 Radha Monzon, RN is Primary Nurse. ko1 07:35 Inserted saline lock: 22 gauge in right wrist, using aseptic technique. Blood ll1 collected. Flushed with 10 mL NS. 07:48 Chest Single View XRAY In Process Unspecified. EDMS 08:00 Second set of blood cultures drawn. ll1 09:04 CT Chest For PE Angio In Process Unspecified. EDMS 09:18 John Swenson DO is Hospitalizing Provider. ms3 10:02 No provider procedures requiring assistance completed. Patient admitted, IV remains in ko1 place. 13:09 attempted to call report, nurse is in process of getting patient ready to fly out and ko1 she will call me back. Administered Medications: 08:28 Drug: levofloxacin IVPB 750 mg 150 ml IVPB once over 90 mins Volume: 150 ml; Route: ko1 IVPB; Infused Over: 90 mins; Site: right wrist; 10:03 Follow up: Response: No adverse reaction; IV Status: Completed infusion; IV Intake: ko1 150ml 08:34 Drug: Acetaminophen PO 1000 mg PO once Route: PO; ko1 09:04 Follow up: Response: No adverse reaction; Pain is decreased ko1 08:44 Not Given (per Dr. Huffman): ns 0.9% 1000 ml IV at 1000 ml once; to be given as a bolus hb over 60 minutes 10:20 Drug: Aspirin PO Chewable Tablet 324 mg PO once; 81 mg tablets x 4 Route: PO; ko1 10:50 Follow up: Response: No adverse reaction ko1 10:20 Drug: Furosemide IVP 40 mg IVP once; give over 2 minutes Route: IVP; Site: right wrist; ko1 10:35 Follow up: Response: No adverse reaction ko1 10:36 Drug: Heparin (OR-Bolus No thrombolytic) - HEParin IVP 60 units/kg IVP once; Max 5000 ko1 units {Co-Signature: [id number] (Domenica Quintero RN).} Route: IVP; Site: right hand; 10:51 Follow up: Response: No adverse reaction ko1 10:38 Drug: Heparin (OR Drip) 12 units/kg/hr - ([place] [address] units, D5W IV 500 ml) IV at ko1 calculated rate Per protocol; Max initial rate 1000 units/hr {Co-Signature: [id number] (Carolyn Cooper RN).} Route: IV; Rate: calculated rate; Site: right hand; 10:53 Follow up: Response: No adverse reaction ko1 12:07 Follow up: IV Status: Infusion continued upon admission ko1 Medication: 07:28 VIS not applicable for this client. ko1 Intake: 10:03 IV: 150ml; Total: 150ml. ko1 Outcome: 09:19 Decision to Hospitalize by Provider. ms3 10:02 Admitted to ER Hold. Please see [facility] for further documentation. ko1 10:02 Condition: stable 10:02 Instructed on the need for admit, 14:47 Patient left the ED. ll1 Signatures: [facility] Qian To RN RN ll1 Lavon Mcgovern DO DO ms3 Radha Monzon RN RN ko1 Alba Solis RN, Clarissa RN cm10 Carolyn Cooper RN mb9 Corrections: (The following items were deleted from the chart) 08:43 08:29 NS 0.9% IV 1000 ml IV at 1000 ml in right wrist ko1 ko1 10:09 10:04 BP 95 / 75; Pulse 120bpm; Resp 19bpm; Pulse Ox 96% 4 lpm Nasal Cannula; ko1 ko1
[2024-07-18] MEDS ORDERED: HEPARIN 5000 UNIT/ML 1 ML VIAL ONE (10:15)
[2024-07-18] MEDS ORDERED: FUROSEMIDE 40 MG/4 ML VIAL ONE (10:15)
[2024-07-18] MEDS ORDERED: HEPARIN/D5W 25,000 UNIT/500 ML BAG IV ONE (10:16)
[2024-07-18] MEDS ORDERED: ASPIRIN 81 MG CHEWABLE TABLET ONE (10:16)
[2024-07-18 11:26] LABS: Specific Gravity > 1.030 (1.005-1.030); Sqamous Epithelial <5 /HPF (None Seen); Urine Bacteria <20 /HPF (<20); Urine Bilirubin NEGATIVE (Negative); Urine Blood Negative (Negative); Urine Clarity Clear (Clear); Urine Color Light-Yellow (Yellow); Urine Culture Reflex Order NOT NEEDED; Urine Glucose 2+ (Negative); Urine Ketones 1+ (Negative); Urine Microscopic Reflex YN ORDER UMIC; Urine Mucus Slight /HPF (None Seen); Urine Nitrite NEGATIVE (Negative); Urine Protein 1+ (Negative); Urine Urobilinogen Normal (Normal); Urine WBC <5 /HPF (<5); Urine pH 5.5 (5.0-7.0)
[2024-07-18] MEDS ORDERED: ONDANSETRON 4 MG/2 ML VIAL IV PRN (11:31)
[2024-07-18 12:16] VITALS: BMI 26.1
--- NOTE | 2024-07-18 12:17 | P.CNS ---
Date of Consult: 07/18/24 Chief Complaint: SOB History of Present Illness: Patient with PMH of HTN, HLD, presented with new onset SOB, chest discomfort that started last night, she has been having nausea and vomiting for the last few days, she was found by EMS in respiratory distress, HR in the 200s, she was placed on CPAP and brought to ED, she denies any other cardiac symptoms, she follows up with [facility] and she had a recent echo and she was told it is normal. Allergies cephalexin [From Keflex] Allergy (Verified 08/06/23 09:55) Itching/Hives/Rash clindamycin Allergy (Verified 08/06/23 09:55) Itching/Hives/Rash doxycycline Allergy (Verified 08/06/23 09:55) Itching/Hives/Rash Penicillins Allergy (Verified 08/06/23 09:55) Itching/Hives/Rash Home medications list reviewed: Yes Home Medications: Aspirin 81 mg PO DAILY 08/02/23 Calcium Carbonate [Calcium] 500 mg PO DAILY 08/02/23 Cholecalciferol (Vitamin D3) [Vitamin D3] 2,000 unit PO DAILY 08/02/23 Duloxetine HCl 20 mg PO DAILY 08/02/23 L.acidoph,Paracasei, B.lactis [Probiotic] 1 each PO DAILY 08/02/23 Lisinopril [Zestril] 20 mg PO BID 08/02/23 Metoclopramide HCl [Reglan] 5 mg PO BID 08/02/23 Omeprazole [Prilosec] 40 mg PO DAILY 08/02/23 Oxycodone HCl 30 mg PO DAILY PRN 08/02/23 Oxycodone HCl [Oxycontin] 80 mg PO PRN 08/02/23 Pravastatin Sodium 40 mg PO BEDTIME 08/02/23 buPROPion HCL [Bupropion Xl] 300 mg PO DAILY 08/02/23 carvediloL [Coreg] 25 mg PO BID 08/02/23 - Past Medical/Surgical History Diabetic: No -: HTN -: Hyperlipidemia -: Depression -: MG hip sx -: Hysterectomy - Social History Smoking Status: Current every day smoker Alcohol use: No CD- Drugs: No Caffeine use: Yes Review of Systems 10-point ROS is otherwise unremarkable Physical Examination Temp Pulse Resp BP Pulse Ox 141 H 100 07/18/24 07:14 07/18/24 07:14 General: Alert, In no apparent distress HEENT: Atraumatic, PERRLA, Mucous membr. moist/pink, EOMI, Sclerae nonicteric Neck: Supple, 2+ carotid pulse no bruit, No LAD, Without JVD or thyroid abnormality Respiratory: Diminished, Crackles/rales Cardiovascular: Regular rate/rhythm, Normal S1 S2 Gastrointestinal: Normal bowel sounds, No tenderness Musculoskeletal: No tenderness Integumentary: No rashes Neurological: Normal gait, Normal speech, Normal tone, Normal affect Lymphatics: No axilla or inguinal lymphadenopathy Laboratory Data (last 24 hrs) 07/18/24 07/18/24 07/18/24 07:35 07:35 07:35 WBC 16.10 H Hgb 10.5 L Hct 32.8 L Plt Count 238 PT 11.5 INR 1.03 APTT 24.5 Sodium 139 Potassium 4.4 BUN 41 H Creatinine 1.78 H Glucose 284 H Total Bilirubin 0.9 AST 83 H ALT 113 H Alkaline Phosphatase 102 - Problems (1) NSTEMI (non-ST elevated myocardial infarction) Current Visit: Yes Status: Acute Plan: Troponin elevated with ST depression inferolateral leads. NPO for coronary angiogram Heparin drip ACS protocol ASA 325 x1 then 81 mg daily Lipitor 40 mg daily Echo (2) Acute heart failure Current Visit: Yes Status: Acute Plan: most likely diastolic in nature. Lasix 40 mg IV BID Monitor input and output and electrolytes Echo (3) Sinus tachycardia Current Visit: Yes Status: Acute Plan: most likely compensatory to heart failure, respiratory distress PRN metoprolol for now until patient is out of shock state and then will consider po Coreg.
--- NOTE | 2024-07-18 12:49 | EKG ---
Test Date: 2024-07-18 Test Time: 07:21:26 Mother Baby Rn: DONNIE MEASUREMENT RESULTS: Intervals: Rate: 132 NE: 138 QRSD: 96 QT: 304 QTc: 450 [place]: P: 52 NE: 138 QRS: -16 T: 132 INTERPRETIVE STATEMENTS: Sinus tachycardia Low voltage QRS T wave abnormality, consider lateral ischemia Abnormal ECG Compared to ECG 05/08/2024 18:36:07 Low QRS voltage now present T-wave abnormality now present Possible ischemia now present Sinus rhythm no longer present Ventricular premature complex(es) no longer present ST (T wave) deviation no longer present Electronically Signed On 07-18-24 12:48:16 CDT by Jaden Hammond
--- NOTE | 2024-07-18 12:49 | EKG ---
Test Date: 2024-07-18 Test Time: 07:20:58 Steward Dishwasher: DONNIE MEASUREMENT RESULTS: Intervals: Rate: 133 ID: [id number] QRSD: 96 QT: 304 QTc: 452 [place]: P: 57 ID: [id number] QRS: -16 T: 133 INTERPRETIVE STATEMENTS: Sinus tachycardia Low voltage QRS Septal infarct, age undetermined T wave abnormality, consider lateral ischemia Abnormal ECG Compared to ECG 05/08/2024 18:36:07 Low QRS voltage now present Myocardial infarct finding now present T-wave abnormality now present Possible ischemia now present Sinus rhythm no longer present Ventricular premature complex(es) no longer present ST (T wave) deviation no longer present Electronically Signed On 07-18-24 12:48:25 CDT by Jaden Hammond
[2024-07-18] MEDS ORDERED: LORazepam 2 MG/ML VIAL ONE (14:22)
[2024-07-18] MEDS: LORazepam 2 MG/ML VIAL IV ONE (14:27)
[2024-07-18] MEDS ORDERED: NA CHLORIDE 0.9% 500 ML ONE (14:53)
[2024-07-18] MEDS: HEPARIN/D5W 25,000 UNIT/500 ML BAG IV SCH (15:57)
[2024-07-18] MEDS: FUROSEMIDE 40 MG/4 ML VIAL IV SCH (16:58)
[2024-07-18] MEDS: AMIODARONE HCL 150 MG in D5W 100 ML IV STA (17:13)
--- NOTE | 2024-07-18 17:16 | P.HP ---
Certification for Inpatient Patient admitted to: Inpatient With expected LOS: >2 Midnights Patient will require the following post-hospital care: None Practitioner: I am a practitioner with admitting privileges, knowledge of patient current condition, hospital course, and medical plan of care. Services: Services provided to patient in accordance with Admission requirements found in Title 42 Section 412.3 of the Code of Federal Regulations Patient History Date of Service: 07/18/24 Reason for admission: NSTEMI, new onset CHF History of Present Illness: 68-year-old female presented to the emergency department with chief complaint of shortness of breath. She stated that she was little bit short of breath yesterday but woke this morning very short of breath and called the ambulance. She was tachycardic and initially it was thought that she was in A-fib with RVR but this turned out to be sinus tach. Her labs were significant for a white blood cell count of 16.1 hemoglobin 10.5 hematocrit 32.8 creatinine 1.78 D-dimer was 1.095 and initial lactic acid was 9.8. Sensitivity troponin was also elevated initially 1031.9. CTA of the chest was performed which showed no evidence of pulmonary embolism, mild dependent interstitial pulmonary edema, mild fatty liver. Chest x-ray there was concern for possible pneumonia, therefore she was given antibioticsLevaquin in the emergency department treated for possible septic shock. Patient be admitted to the ICU for further management of an NSTEMI, suspected new onset CHF, rule out septic shock Allergies cephalexin [From Keflex] Allergy (Verified 08/06/23 09:55) Itching/Hives/Rash clindamycin Allergy (Verified 08/06/23 09:55) Itching/Hives/Rash doxycycline Allergy (Verified 08/06/23 09:55) Itching/Hives/Rash Penicillins Allergy (Verified 08/06/23 09:55) Itching/Hives/Rash Home Medications: Aspirin 81 mg PO DAILY 08/02/23 Calcium Carbonate [Calcium] 500 mg PO DAILY 08/02/23 Cholecalciferol (Vitamin D3) [Vitamin D3] 2,000 unit PO DAILY 08/02/23 Duloxetine HCl 20 mg PO DAILY 08/02/23 L.acidoph,Paracasei, B.lactis [Probiotic] 1 each PO DAILY 08/02/23 Lisinopril [Zestril] 20 mg PO BID 08/02/23 Metoclopramide HCl [Reglan] 5 mg PO BID 08/02/23 Omeprazole [Prilosec] 40 mg PO DAILY 08/02/23 Oxycodone HCl 30 mg PO DAILY PRN 08/02/23 Oxycodone HCl [Oxycontin] 80 mg PO PRN 08/02/23 Pravastatin Sodium 40 mg PO BEDTIME 08/02/23 buPROPion HCL [Bupropion Xl] 300 mg PO DAILY 08/02/23 carvediloL [Coreg] 25 mg PO BID 08/02/23 - Past Medical/Surgical History Has patient received pneumonia vaccine in the past: Yes Diabetic: No -: HTN -: Hyperlipidemia -: Depression -: MG hip sx -: Hysterectomy -: knee sx Psychosocial/ Personal History: Lives at home, alone - Social History Smoking Status: Light Tobacco smoker (1-9 cigarettes/day) Alcohol use: No CD- Drugs: No Caffeine use: Yes Place of Residence: Home Review of Systems 10-point ROS is otherwise unremarkable Respiratory: Shortness of Breath Gastrointestinal: Nausea, Vomiting Physical Examination - Vital Signs Temperature: 97.2 F Blood Pressure: 130/86 Pulse: 140 Respirations: 20 Pulse Ox (%): 94 - Physical Exam General: Alert, In no apparent distress, Oriented x3 HEENT: Atraumatic, PERRLA, Mucous membr. moist/pink Neck: Supple, 2+ carotid pulse no bruit, No LAD Respiratory: Diminished, Crackles/rales Cardiovascular: Normal S1 S2, Irregular heart rate/rhythm (Tachycardic, sinus tach 130) Capillary refill: <2 Seconds Gastrointestinal: Normal bowel sounds, No tenderness Musculoskeletal: No tenderness Integumentary: No rashes Neurological: Normal speech, Normal strength at 5/5 x4 extr, Normal tone, Normal affect - Studies Laboratory Data (last 24 hrs) 07/18/24 07/18/24 07/18/24 07:35 07:35 07:35 WBC 16.10 H Hgb 10.5 L Hct 32.8 L Plt Count 238 PT 11.5 INR 1.03 APTT 24.5 Sodium 139 Potassium 4.4 BUN 41 H Creatinine 1.78 H Glucose 284 H Total Bilirubin 0.9 AST 83 H ALT 113 H Alkaline Phosphatase 102 Assessment and Plan - Plan Assessment: NSTEMI Acute systolic congestive heart failurenew onset EF~15% Acute hypoxic respiratory failure secondary to above Lactic acidosis likely secondary to hypoxia/respiratory failure versus septic shock Rule out septic shock/pneumonia Reported history of renal artery stenosis Hypertension Hyperlipidemia GERD Plan: NSTEMI Acute systolic congestive heart failurenew onset EF~15% Acute hypoxic respiratory failure secondary to above Lactic acidosis likely secondary to hypoxia/respiratory failure versus septic shock Initial troponin elevated around 1000, downtrending to 900s now Cardiogram performed showed EF of around 15%, patient reports she had an echocardiogram around a month and a half ago that was normal 2013 she reports having a coronary angiogram which showed normal coronaries and was diagnosed with Takotsubo cardiomyopathy Chest pain at this time, was having nausea and vomiting all day yesterday 07/17 She is currently on a heparin drip, was planning for coronary angiogram unable to be performed at our facility given technical difficulties Arranging for inpatient transfer to ICU for new onset systolic CHF, NSTEMI needing cath Lactate significantly improved on repeat without IV fluids Continue lasix, heparin Rule out septic shock/pneumonia Chest x-ray showed some concern for possible pneumonia Follow-up CT showed pulmonary edema Given dose of empiric levofloxacin ED Doubt infectious process at this time Lactate significantly improved Continue with diuresis Reported history of renal artery stenosis Reported per patient told to follow up with vasular outpatient Hypertension Hyperlipidemia GERD Hold beta fredo for now in acute heart failure Resume home meds when verified/appropriate DVT PPX: Heparin drip Code status:full Discharge Plan: Transfer Plan to discharge in: 24 Hours - Advance Directives Does patient have a Living Will: Yes Does patient have a Durable POA for Healthcare: Yes - Code Status/Comfort Care Code Status Assessed: Yes (Full code) Time Spent Managing Pts Care (In Minutes): 75
[2024-07-18] MEDS: METOPROLOL TARTRATE 5 MG/5 ML INJ IV STA (17:32)
[2024-07-18] MEDS: ACETAMINOPHEN 325 MG TABLET PO PRN (18:34)
[2024-07-18] MEDS: METOPROLOL TARTRATE 5 MG/5 ML INJ IV ONE (19:26)
[2024-07-18] MEDS: AMIODARONE IN DEXTROSE,ISO-OSM 360 MG/200 ML BAG IV ONE (19:34)
[2024-07-18] MEDS: FUROSEMIDE 20 MG/ 2ML VIAL ONE ×2 (19:41→19:56)
[2024-07-18] MEDS: FUROSEMIDE 40 MG/4 ML VIAL IV ONE (19:43)
[2024-07-18] MEDS ORDERED: AMIODARONE HCL 450 MG in D5W 241 ML IV SCH (20:00)
--- NOTE | 2024-07-18 20:06 | RAD REPORT ---
EXAMINATION: ONE VIEW CHEST XR CLINICAL INDICATION: Female, 68 years old.SOB TECHNIQUE: 1 View, AP supine, X-ray of the chest was performed. [id number]. COMPARISON: 07/18/2024 FINDINGS: Lungs and pleura: Mild interstitial edema. No effusion. Heart and mediastinum: Normal heart size. Unremarkable mediastinal contours. Osseous structures: No acute abnormality. Tubes/lines: None Other: Defibrillator pad overlies the left hemithorax. IMPRESSION: Interstitial pulmonary edema.
[2024-07-18 20:15] LABS: Blood Gas Oxyhemoglobin 96.4 % (94-97); Blood O2 Saturation 97.8 % (92-98.5)
[2024-07-18 20:16] LABS: Arterial Blood Carboxyhemoglob 0.2 % (0-1.5)
[2024-07-18 20:17] LABS: Blood Gas THB 11.4 g/dl (12-18)
[2024-07-18] MEDS: ATORVASTATIN 40 MG TAB PO SCH (22:24)
[2024-07-19 00:57] VITALS: O2SAT 100
[2024-07-19] MEDS ORDERED: SODIUM BICARB 50 MEQ/50ML VIAL ONE (03:00)
[2024-07-19] MEDS ORDERED: NOREPINEPHRINE 4 MG in D5W 250 ML IV SCH (03:00)
[2024-07-19 05:34] LABS: Absolute Basophils 0.1 K/uL (0-0.5); Absolute Lymphocytes (CBC) 1.5 K/uL (0.7-4.9); Absolute Monocytes 0.4 K/uL (0.1-1.3); Absolute Neutrophil 9.6 K/uL (1.8-8.0); Basophils % 0.6 % (0-1.3); Hematocrit 29.7 % (36.0-45.0); Hemoglobin 10.2 g/dL (12.0-15.0); MCH 35.3 pg (27.0-35.0); MCHC 34.2 g/dL (32.0-36.0); MPV 8.6 fL (7.6-11.3); Monocytes % 3.9 % (3.3-12.3); Neutrophils % 82.5 % (41.7-73.7); Nucleated RBC Absolute Count 0.1 (0-0); Nucleated Red Blood Cells % 0.5 % (0-0); Platelets 182 thou/uL (152-406); RBC Red Blood Cell Count 2.88 M/uL (3.86-4.86); Red Cell Distribution Width 14.4 % (12.1-15.2)
[2024-07-19 06:09] LABS: Albumin 2.9 g/dL (3.4-5.0); Albumin/Globulin Ratio 0.9 (1.1-1.8); Anion Gap 16.3 mEq/L (5.0-15.0); Bilirubin Total 0.5 mg/dL (0.2-1.0); Globulin 3.2 g/dL (2.3-3.5); Potassium 3.3 mEq/L (3.5-5.1); Protein, Total 6.1 g/dL (6.4-8.2); Thyroid Stimulating Hormone 1.37 uIU/mL (0.358-3.740)
--- NOTE | 2024-07-19 06:39 | ECHO ---
HEIGHT: 4 ft 10 in WEIGHT: 125 lb 0 oz DATE OF STUDY: 07/18/[address]: Ham Hernandez NP 2-DIMENSIONAL: YES M.MODE: YES DOPPLER: YES COLOR FLOW: YES TDS: PORTABLE: YES DEFINITY: BUBBLE STUDY: DIAGNOSIS: NON ST ELEVATION MYOCARDIAL INFARCTION/ PULMONARY EDEMA CARDIAC HISTORY: CATHERIZATION: SURGERY: PROSTHETIC VALVE: PACEMAKER: MEASUREMENTS (cm) DIASTOLIC (NORMALS) SYSTOLIC (NORMALS) IVSd 0.8 (0.6-1.2) LA Diam 3.7 (1.9-4.0) LVEF 15-20% LVIDd 4.4 (3.5-5.7) LVIDs 4.1 (2.0-3.5) %FS 7% LVPWd 0.9 (0.6-1.2) Ao Diam 2.6 (2.0-3.7) 2 DIMENSIONAL ASSESSMENT: RIGHT ATRIUM: NORMAL LEFT ATRIUM: ENLARGED RIGHT VENTRICLE: NORMAL LEFT VENTRICLE: DEPRESSED EJECTION FRACTION TRICUSPID VALVE: MODERATE TRICUSPID REGURGITATION MITRAL VALVE: MILD MITRAL REGURGITATION PULMONIC VALVE: MILD PULMONARY INSUFFICIENCY AORTIC VALVE: MILD AORTIC INSUFFICIENCY PERICARDIAL EFFUSION: NONE AORTIC ROOT: NORMAL LEFT VENTRICULAR WALL MOTION: ANTERIOR/ APICAL WALL ARE AKINETIC DOPPLER/COLOR FLOW: SEE BELOW COMMENTS: 1. SEVERELY DEPRESSED LEFT VENTRICULAR EJECTION FRACTION 15-20% 2. ANTERIOR/ APICAL WALL AKINESIS 3. MILD MITRAL REGURGITATION 4. MODERATE TRICUSPID REGURGITATION 5. LEFT ATRIAL ENLARGEMENT 6. SEVERE PULMONARY HYPERTENSION WITH RIGHT VENTRICULAR SYSTOLIC PRESSURE GREATER THAN 60 mmHg TECHNOLOGIST: DELMY SOMMER
[2024-07-19] MEDS ORDERED: AMIODARONE IN DEXTROSE,ISO-OSM 360 MG/200 ML BAG IV ONE (07:09)
[2024-07-19] MEDS: KCL 20 MEQ/100 mL IVPB 20 MEQ/100 ML BAG IV SCH (07:45)
[2024-07-19] MEDS: ASPIRIN EC 81 MG TAB PO SCH (07:45)
[2024-07-19 08:44] VITALS: TEMP 98.2
--- NOTE | 2024-07-19 09:53 | P.PN ---
Date of Service: 07/19/24 Subjective: Rapid response called overnight for tachycardia, diaphoresis Was started on BiPAP again, given IV Lasix, started on amiodarone drip Patient resting comfortably on BiPAP 14/7, 35% FiO2 this morning feeling much better Transfer in progress for coronary angiogram/advanced heart failurenew onset ROS: 10 point ROS as noted above, otherwise negative Physical exam GEN: Alert, oriented, NAD HEENT: Normal conjunctiva, sclera anicteric CV: Regular rate and rhythm, no edema Pulm: Nonlabored respirations on Bipap 35% FI02, breath sounds course/crackles at bases ABD: Soft, nontender, nondistended MSK: No joint tenderness Integumentary: No rashes Neuro: Normal speech, normal affect Vitals reviewed Assessment: NSTEMI Acute systolic congestive heart failurenew onset EF~15% Acute hypoxic respiratory failure secondary to above Lactic acidosis likely secondary to hypoxia/respiratory failure versus versus cardiogenic Shock Rule out septic shock/pneumonia-ruled out Reported history of renal artery stenosis Hypertension Hyperlipidemia GERD Plan: NSTEMI Acute systolic congestive heart failurenew onset EF~15% Acute hypoxic respiratory failure secondary to above Lactic acidosis likely secondary to hypoxia/respiratory failure versus cardiogenic shock Initial troponin elevated around 1000, downtrending to 900s now Cardiogram performed showed EF of around 15%, patient reports she had an echocardiogram around a month and a half ago that was normal 2013 she reports having a coronary angiogram which showed normal coronaries and was diagnosed with Takotsubo cardiomyopathy No chest pain at this time, was having nausea and vomiting all day yesterday 07/17 She is currently on a heparin drip, was planning for coronary angiogram unable to be performed at our facility given technical difficulties Arranging for inpatient transfer to ICU for new onset systolic CHF, NSTEMI needing cath On amiodarone drip started overnight for tachycardia, A fib RVR vs SVT, now sinus tach rates around 105 Lactate significantly improved on repeat without IV fluids Continue lasix, heparin drip Rule out septic shock/pneumonia-ruled out Chest x-ray showed pulmonary edema today No fevers, WBC improving Follow-up CT showed pulmonary edema Given dose of empiric levofloxacin ED Doubt infectious process at this time Lactate significantly improved with oxygen, diuresis Continue with diuresis Reported history of renal artery stenosis Reported per patient told to follow up with vasular outpatient Hypertension Hyperlipidemia GERD Hold beta fredo for now in acute heart failure Resume home meds when verified/appropriate DVT PPX: Heparin drip Code status:full Discharge Plan: Transfer Plan to discharge in: 24 Hours Time Spent Managing Pts Care (In Minutes): 35
--- NOTE | 2024-07-19 10:00 | P.CNS ---
Date of Consult: 07/19/24 Reason for Consult: LEATHA/CKD Requesting Physician: Josue Jim Chief Complaint: NSTEMI, new onset CHF History of Present Illness: 68-year-old female presented to the emergency department with chief complaint of shortness of breath. She stated that she was little bit short of breath yesterday but woke this morning very short of breath and called the ambulance. She was tachycardic and initially it was thought that she was in A-fib with RVR but this turned out to be sinus tach. Her labs were significant for a white blood cell count of 16.1 hemoglobin 10.5 hematocrit 32.8 creatinine 1.78 D-dimer was 1.095 and initial lactic acid was 9.8. Sensitivity troponin was also elevated initially 1031.9. CTA of the chest was performed which showed no evidence of pulmonary embolism, mild dependent interstitial pulmonary edema, mild fatty liver. Chest x-ray there was concern for possible pneumonia, therefore she was given antibioticsLevaquin in the emergency department treated for possible septic shock. Patient be admitted to the ICU for further management of an NSTEMI, suspected new onset CHF, rule out septic shock 11:01 This 68 yrs old Female presents to ER via EMS with complaints of Shortness Of Breath. ms3 11:01 68-year-old female with past medical history of hyperlipidemia, hypertension, ms3 myocardial infarction, GERD presents to the emergency department via [facility] for shortness of breath that is been ongoing for 2 days. On EMS arrival patient was diaphoretic and wheezing with a heart rate of 200 with atrial fibrillation with RVR. Patient was given a DuoNeb and 5 mg of metoprolol with improvement of her heart rate to the 120s. Patient is without pain. Patient denies any alleviating or inciting factors. Allergies cephalexin [From Keflex] Allergy (Verified 08/06/23 09:55) Itching/Hives/Rash clindamycin Allergy (Verified 08/06/23 09:55) Itching/Hives/Rash doxycycline Allergy (Verified 08/06/23 09:55) Itching/Hives/Rash Penicillins Allergy (Verified 08/06/23 09:55) Itching/Hives/Rash Home medications list reviewed: Yes Home Medications: Aspirin 81 mg PO DAILY 08/02/23 Calcium Carbonate [Calcium] 500 mg PO DAILY 08/02/23 Cholecalciferol (Vitamin D3) [Vitamin D3] 2,000 unit PO DAILY 08/02/23 Duloxetine HCl 20 mg PO DAILY 08/02/23 L.acidoph,Paracasei, B.lactis [Probiotic] 1 each PO DAILY 08/02/23 Lisinopril [Zestril] 20 mg PO BID 08/02/23 Metoclopramide HCl [Reglan] 5 mg PO BID 08/02/23 Omeprazole [Prilosec] 40 mg PO DAILY 08/02/23 Oxycodone HCl 30 mg PO DAILY PRN 08/02/23 buPROPion HCL [Bupropion Xl] 300 mg PO DAILY 08/02/23 carvediloL [Coreg] 25 mg PO BID 08/02/23 - Past Medical/Surgical History Diabetic: No -: HTN -: HLD -: Depression -: MG hip sx -: Hysterectomy -: knee sx Psychosocial/ Personal History: Lives at home, alone - Social History Smoking Status: Current every day smoker Alcohol use: No CD- Drugs: No Caffeine use: Yes Place of Residence: Home Review of Systems 10-point ROS is otherwise unremarkable General: Weakness Respiratory: SOB with Excertion Physical Examination Temp Pulse Resp BP Pulse Ox 98.2 F 101 H 18 104/71 100 07/19/24 08:00 07/19/24 08:00 07/19/24 08:00 07/19/24 08:00 07/19/24 08:00 General: Oriented x3, Cooperative HEENT: Atraumatic Neck: Supple Respiratory: Clear to auscultation bilaterally, Normal air movement Cardiovascular: No edema, Regular rate/rhythm Gastrointestinal: Soft and benign, Non-distended Musculoskeletal: No clubbing, No contractures Integumentary: No rashes, No cyanosis Neurological: Normal speech Blood work reviewed in the chart. Imagings Data: EXAMINATION: ONE VIEW CHEST XR CLINICAL INDICATION: Female, 68 years old.SOB TECHNIQUE: 1 View, AP supine, X-ray of the chest was performed. [id number]. COMPARISON: 07/18/2024 FINDINGS: Lungs and pleura: Mild interstitial edema. No effusion. Heart and mediastinum: Normal heart size. Unremarkable mediastinal contours. Osseous structures: No acute abnormality. Tubes/lines: None Other: Defibrillator pad overlies the left hemithorax. IMPRESSION: Interstitial pulmonary edema. EXAMINATION: CTA CHEST PE CLINICAL INDICATION: DYSPNEA TECHNIQUE: This examination was performed according to an angiographic protocol with 3D postprocessing. This involves 3D reconstructions, MIPs, volume rendered images and/or shaded surface rendering. One or more of the following dose reduction techniques were used: Automated exposure control, adjustment of the mA and/or kV according to patient size, and/or iterative reconstruction. Unless otherwise specified, incidental findings do not require dedicated imaging follow-up. COMPARISON: No prior exam. FINDINGS: PULMONARY ARTERIES: Normal caliber. No evidence of pulmonary emboli to the subsegmental level. THORACIC AORTA: Normal caliber and configuration. Intraluminal assessment is suboptimal due to lack of contrast opacification. LUNGS: No pulmonary nodule or infiltrate. Mild interstitial edema suspected in the dependent basilar lung jansen. PLEURA: No pleural effusion. No pneumothorax. MEDIASTINUM AND LYMPH NODES: No mediastinal mass or fluid collection. Normal size mediastinal, hilar, and axillary lymph nodes. OSSEOUS STRUCTURES AND CHEST WALL: Intact. UPPER ABDOMEN: Mild diffuse fatty liver. IMPRESSION: No evidence of pulmonary emboli to the subsegmental level. Mild dependent interstitial pulmonary edema. Mild fatty liver. EXAMINATION: ONE VIEW CHEST XR CLINICAL INDICATION: Cough;Dyspnea TECHNIQUE: Frontal chest projection is submitted. Examination is limited by patient positioning and technique. COMPARISON: 08/02/2023 FINDINGS: Mild to moderate bilateral pulmonary opacities are present likely representing infection/pneumonia. The heart is upper limit of normal in size. No displaced fractures identified. IMPRESSION: [id number] bilateral pulmonary opacities likely represents pulmonary edema or pneumonia. LEFT VENTRICULAR WALL MOTION: ANTERIOR/ APICAL WALL ARE AKINETIC DOPPLER/COLOR FLOW: SEE BELOW COMMENTS: 1. SEVERELY DEPRESSED LEFT VENTRICULAR EJECTION FRACTION 15-20% 2. ANTERIOR/ APICAL WALL AKINESIS 3. MILD MITRAL REGURGITATION 4. MODERATE TRICUSPID REGURGITATION 5. LEFT ATRIAL ENLARGEMENT 6. SEVERE PULMONARY HYPERTENSION WITH RIGHT VENTRICULAR SYSTOLIC PRESSURE GREATER THAN 60 mmHg Conclusions/Impression: Stage II LAETHA likely CRS complicated by hypotension Proteinuria Microscopic Hematuria -No NSAIDs -Continue diuresis -Levophed as ordered to maintain perfusion Hypokalemia -Replete as ordered Metabolic and Respiratory Acidosis -Bipap prn Hypotension -Levophed as ordered Acute Respiratory Failure with hypoxia Systolic CHF, Acute LVEF 15-20% Moderate TR Pulmonary HTN -Continue Lasix -Continue Oxygen supplementation -Bipap prn Anemia in chronic illness Macrocytosis -Monitor H&H -Check iron status Cigarette Smoker -Recommend cessation Hospitalist, ER, and Cardiology notes reviewed; transfer planned for further cardiac evaluation Case reviewed with Dr. Jim Thank you kindly for the consultation Critical Care: Yes (40min)
[2024-07-19] MEDS ORDERED: HOME MED 1 EA UNK (Bupropion Hcl [Bupropion Xl] 300 MG Tab.Er.24h) PO SCH (11:30)
[2024-07-19] MEDS: DULOXETINE 20 MG CAP PO SCH (11:55)
[2024-07-19] MEDS: BUPROPION HCL XL 150 MG TAB PO SCH (11:59)
[2024-07-19] MEDS: LORazepam 2 MG/ML VIAL IV ONE (12:02)
[2024-07-19 12:38] VITALS: BP 102/63
[2024-07-19] MEDS ORDERED: AMIODARONE HCL 900 MG in Dextrose 5%-Water 482 ML IV SCH (14:00)
--- NOTE | 2024-07-19 14:30 | P.PN ---
Subjective Date of Service: 07/19/24 Chief Complaint: NSTEMI, new onset CHF Subjective: No new changes, No C/O voiced, Tolerating diet, Ambulating, Improving Review of Systems 10-point ROS is otherwise unremarkable Physical Examination - Vital Signs Temperature: 98.2 F Blood Pressure: 102/63 Pulse: 97 Respirations: 16 Pulse Ox (%): 99 - Physical Exam General: Alert, In no apparent distress HEENT: Atraumatic, PERRLA, EOMI Neck: Supple, JVD not distended Respiratory: Clear to auscultation bilaterally, Normal air movement Cardiovascular: Regular rate/rhythm, Normal S1 S2 Gastrointestinal: Normal bowel sounds, No tenderness Musculoskeletal: No tenderness Integumentary: No rashes Neurological: Normal speech, Normal tone, Normal affect Lymphatics: No axilla or inguinal lymphadenopathy - Studies Medications List Reviewed: Yes Assessment And Plan - Current Problems (Diagnosis) (1) NSTEMI (non-ST elevated myocardial infarction) Current Visit: Yes Status: Acute Plan: Troponin elevated with ST depression inferolateral leads. Heparin drip ACS protocol ASA 325 x1 then 81 mg daily Lipitor 40 mg daily Echo shows severe reduced LV systolic function with anterior and apical wall akinesis Transfer to tertiary center for coronary angiogram. (2) Acute heart failure Current Visit: Yes Status: Acute Plan: Systolic and diastolic in nature, NYHA 4, stage C. Lasix 40 mg IV BID Monitor input and output and electrolytes (3) Sinus tachycardia Current Visit: Yes Status: Acute Plan: most likely compensatory to heart failure, respiratory distress but patient HR went up to the 150s overnight, BP dropped, EKG was not clear if it is ST vs Atrial flutter with 2:1 block so patient was bolused with amidarone and started on drip. PRN metoprolol for now until patient is out of shock state and then will consider po Coreg.
--- NOTE | 2024-07-19 15:35 | P.DS ---
Admission Date: 07/18/24 Discharge Date: 07/19/24 Disposition: TRANSFER TO [facility] Reason for Admission: NSTEMI, new onset CHF Consultations: Cardiology-Dr. Hammond Neprhology-Dr. Charles Brief History of Present Illness: 68-year-old female presented to the emergency department with chief complaint of shortness of breath. She stated that she was little bit short of breath yesterday but woke this morning very short of breath and called the ambulance. She was tachycardic and initially it was thought that she was in A-fib with RVR but this turned out to be sinus tach. Her labs were significant for a white blood cell count of 16.1 hemoglobin 10.5 hematocrit 32.8 creatinine 1.78 D-dimer was 1.095 and initial lactic acid was 9.8. Sensitivity troponin was also elevated initially 1031.9. CTA of the chest was performed which showed no evidence of pulmonary embolism, mild dependent interstitial pulmonary edema, mild fatty liver. Chest x-ray there was concern for possible pneumonia, therefore she was given antibioticsLevaquin in the emergency department treated for possible septic shock. Patient be admitted to the ICU for further management of an NSTEMI, suspected new onset CHF, rule out septic shock Hospital Course: Patient was admitted to the hospital for acute hypoxic respiratory failure, suspected new onset CHF, NSTEMI. She reports having a normal echocardiogram about a month and a half ago, she developed sudden shortness of breath the morning she came to the hospital. She was found to have a pulmonary edema, elevated BNP, troponin. She was started on a heparin drip and admitted to the hospital with plans for coronary angiogram, echocardiogram. Echocardiogram was performed which showed reduced ejection fraction, global hypokinesis with an LVEF of around 15%. Cardiology recommended coronary angiogram but unfortunately our Bottle Inspector is down and we were unable to complete the heart catheterization, given her elevated troponin, new onset advanced heart failure transfer was warranted for further cardiac evaluation/coronary angiogram. Patient was accepted to [facility] CCU for further care. Assessment: NSTEMI Acute systolic congestive heart failurenew onset EF~15% Acute hypoxic respiratory failure secondary to above Lactic acidosis likely secondary to hypoxia/respiratory failure versus versus cardiogenic Shock Rule out septic shock/pneumonia-ruled out Reported history of renal artery stenosis Hypertension Hyperlipidemia GERD Vital Signs/Physical Exam: Temp Pulse Resp BP Pulse Ox 98.2 F 97 H 16 102/63 99 07/19/24 14:29 07/19/24 14:29 07/19/24 14:29 07/19/24 14:29 07/19/24 14:29 General: Alert, In no apparent distress, Oriented x3 HEENT: Atraumatic, PERRLA Neck: Supple, JVD not distended Respiratory: Diminished, Crackles/rales Cardiovascular: Regular rate/rhythm, Normal S1 S2 Gastrointestinal: Normal bowel sounds, No tenderness Musculoskeletal: No tenderness Integumentary: No rashes Neurological: Normal speech, Normal tone, Normal affect Laboratory Data at Discharge: WBC 11.60 thou/uL (4.3-10.9) H 07/19/24 05:20 Hgb 10.2 g/dL (12.0-15.0) L 07/19/24 05:20 Hct 29.7 % (36.0-45.0) L 07/19/24 05:20 Plt Count 182 thou/uL (152-406) 07/19/24 05:20 PT 11.5 SECONDS (9.4-12.5) 07/18/24 07:35 INR 1.03 07/18/24 07:35 APTT 74.5 SECONDS (24.3-36.9) H 07/19/24 02:40 Sodium 141 mEq/L (136-145) 07/19/24 05:20 Potassium 3.3 mEq/L (3.5-5.1) L D 07/19/24 05:20 BUN 43 mg/dL (7-18) H 07/19/24 05:20 Creatinine 1.78 mg/dL (0.55-1.02) H 07/19/24 05:20 Glucose 136 mg/dL (74-106) H 07/19/24 05:20 Total Bilirubin 0.5 mg/dL (0.2-1.0) 07/19/24 05:20 AST 111 U/L (15-37) H 07/19/24 05:20 ALT 108 U/L (13-56) H 07/19/24 05:20 Alkaline Phosphatase 81 U/L (45-117) D 07/19/24 05:20 Triglycerides 94 mg/dL (<150) 07/19/24 05:20 Cholesterol 83 mg/dL (<200) 07/19/24 05:20 HDL Cholesterol 46 mg/dL (40-60) 07/19/24 05:20 Cholesterol/HDL Ratio 1.80 07/19/24 05:20 Home Medications: Aspirin 81 mg PO DAILY 08/02/23 Calcium Carbonate [Calcium] 500 mg PO DAILY 08/02/23 Cholecalciferol (Vitamin D3) [Vitamin D3] 2,000 unit PO DAILY 08/02/23 Duloxetine HCl 20 mg PO DAILY 08/02/23 L.acidoph,Paracasei, B.lactis [Probiotic] 1 each PO DAILY 08/02/23 Lisinopril [Zestril] 20 mg PO BID 08/02/23 Metoclopramide HCl [Reglan] 5 mg PO BID 08/02/23 Omeprazole [Prilosec] 40 mg PO DAILY 08/02/23 Oxycodone HCl 30 mg PO DAILY PRN 08/02/23 buPROPion HCL [Bupropion Xl] 300 mg PO DAILY 08/02/23 carvediloL [Coreg] 25 mg PO BID 08/02/23 Physician Discharge Instructions: Patient was admitted to the hospital for acute hypoxic respiratory failure, suspected new onset CHF, NSTEMI. She reports having a normal echocardiogram about a month and a half ago, she developed sudden shortness of breath the morning she came to the hospital. She was found to have a pulmonary edema, elevated BNP, troponin. She was started on a heparin drip and admitted to the hospital with plans for coronary angiogram, echocardiogram. Echocardiogram was performed which showed reduced ejection fraction, global hypokinesis with an LVEF of around 15%. Cardiology recommended coronary angiogram but unfortunately our Bottle Inspector is down and we were unable to complete the heart catheterization, given her elevated troponin, new onset advanced heart failure transfer was warranted for further cardiac evaluation/coronary angiogram. Patient was accepted to [facility] CCU for further care. Followup: Evelyn Kidd MD [Primary Care Provider] - Time spent managing pt's care (in minutes): 55
--- NOTE | 2024-07-20 12:20 | EKG ---
Test Date: 2024-07-18 Test Time: 19:46:43 Corporate Development Manager: SREG MEASUREMENT RESULTS: Intervals: Rate: 129 CA: 124 QRSD: 112 QT: 394 QTc: 577 [place]: P: 62 CA: 124 QRS: 2 T: 119 INTERPRETIVE STATEMENTS: Sinus tachycardia T wave abnormality, consider lateral ischemia Abnormal ECG Compared to ECG 07/18/2024 17:26:40 T-wave abnormality now present ST (T wave) deviation no longer present Possible ischemia still present Electronically Signed On 07-20-24 12:16:06 CDT by Jaden Hammond
--- NOTE | 2024-07-20 12:21 | EKG ---
Test Date: 2024-07-18 Test Time: 17:26:40 Policy Advisor: CORTES MEASUREMENT RESULTS: Intervals: Rate: 135 VA: 114 QRSD: 80 QT: 304 QTc: 456 [place]: P: 59 VA: 114 QRS: 72 T: 186 INTERPRETIVE STATEMENTS: Sinus tachycardia Low voltage QRS ST & T wave abnormality, consider inferolateral ischemia Abnormal ECG Compared to ECG 07/18/2024 07:21:26 ST (T wave) deviation now present T-wave abnormality no longer present Possible ischemia still present Electronically Signed On 07-20-24 12:16:40 CDT by Jaden Hammond
== END 2024-07-19 14:10 | disposition short-term general hospital (02) | DRG 280 ==
LOC: ER 07:12 → ERHOLD 10:05 → 3RD-ICU 12:22
PROVIDERS: ADMIT Hospitalist; ATTEND Hospitalist
PROC: 4A033R1 Measurement of Arterial Saturation, Peripheral, Percutaneous Approach (ICD-10-PCS; principal; 2024-07-18)
PROC: 5A09357 Assistance with Respiratory Ventilation, Less than 24 Consecutive Hours, Continuous Positive Airway Pressure (ICD-10-PCS; 2024-07-18)
PROC: 0T9B70Z Drainage of Bladder with Drainage Device, Via Natural or Artificial Opening (ICD-10-PCS; 2024-07-18)
DX: I11.0 Hypertensive heart disease with heart failure (principal); I50.21 Acute systolic (congestive) heart failure; I21.4 Non-ST elevation (NSTEMI) myocardial infarction; J96.01 Acute respiratory failure with hypoxia; R57.0 Cardiogenic shock; E87.20 Acidosis, unspecified; N17.9 Acute kidney failure, unspecified; E87.29 Other acidosis; D63.8 Anemia in other chronic diseases classified elsewhere; E87.6 Hypokalemia; D75.89 Other specified diseases of blood and blood-forming organs; E78.00 Pure hypercholesterolemia, unspecified; I27.20 Pulmonary hypertension, unspecified; K21.9 Gastro-esophageal reflux disease without esophagitis; F17.210 Nicotine dependence, cigarettes, uncomplicated; I25.2 Old myocardial infarction; R31.29 Other microscopic hematuria; Z88.0 Allergy status to penicillin; Z60.2 Problems related to living alone; Z88.1 Allergy status to other antibiotic agents; Z79.82 Long term (current) use of aspirin; Z79.02 Long term (current) use of antithrombotics/antiplatelets; Z79.899 Other long term (current) drug therapy; Z90.710 Acquired absence of both cervix and uterus
CPT/HCPCS: 36415; 36600; 71045; 71275; 80053; 80061; 81001; 82805; 82947; 83605; 83880; 84439; 84443; 84484; 85025; 85379; 85610; 85730; 87040; 93005; 93306; 94660; 99285; J0282; J1644; J1940; J3480; J7040; J7060; Q9967

== ENCOUNTER 2024-10-02 14:19 | Emergency (ER) | payer OTHER, MEDICARE ==
--- OUTSIDE RECORDS SUMMARY | 2024-10-02 14:25 | XMS REPORT | Continuity of Care Document ---
Author Name Unknown Address [address] [facility] [address] [place] [address] [facility] Address [address] [facility] [address] [place] [address] Care Team Providers Care Director Medicaid Name Role Phone KAITLIN SRIVASTAVA Primary Care Physician Unavailab Kaitlin Chaves Attending Clinician Unavailable Luba JOHNSON Attending Clinician Unavailable QUENTIN RUELAS Attending Clinician Unavailable CARLYLE MENEZES Attending Clinician Unavailable TOMMIE NEWSOME Attending Clinician Sara vailaCarlyle Buck DO Attending Clinician [phone] Quentin Ruelas MD Attending Clinician [phone] Pob, [facility] Attending Clinician UnavailLisa Elmore MD Attending Clinician + [phone] LISA GUAN Attending Clinician UnavailLISA [place] Attending Clinician Unavailmonica Ruelas MD, Quentin Attending Clinician [phone] LISS GUTIERREZ Attending Clinician Unavailab TIANA Perez Attending Clinician Unavailable Doctor Unassigned, [place] Attending Clinician U navailable JOE WATKINS Attending Clinician Unavailable HERMAN CARRION Attending Clinician Unav ailable 2, [facility] Attending Clinician Unavailable ERIN SAUNDERS Attending Clinician Un available CHAGO OBRIEN Attending Clinician Unava ilable SHANTHI MILAN Attending Clinician Unavailable Shantel Martinez Attending Clinician [phone] SHANTEL FERNANDEZ Attending Clinician Unavailable Shaina Jon MD Attending Clinician [phone] SHAINA JON Attending Clinician Unavailable KELLY CALLOWAY Attending Clinician Unavailable Kelly Quintana Attending Clinician [phone] CE GROVES Attending Clinician Unavail able QUENTIN RUELAS Admitting Clinician Unavailable Payers Payer Name Policy Type Policy Number Effective Date Expirati on Date Source [facility] [id number] 2021 00:00:00 MEDICARE PART A \T\ B [id number] 2022 00:00:00 [facility] MEDICARE SUPPLEMENT [id number] 2023 00:00:00 [facility] [id number] 2017 00:00:00 [place] [address] [id number] [place] [id number] [place] [address] [id number] [facility] Problems Condition Name Condition Details Condition Category Status Onset Date Resolution Date Last Treatment Date Treating Clinician Comments Source Renal artery stenosis Renal artery stenosis Disease Active 2023-09 00:00: 00 [facility] Obesity (BMI 30-39.9) Obesity (BMI 30-39.9) Disease Active 2023-09- 00:00: 00 [facility] Hypertensi ve urgency Hypertensi ve urgency Disease Active 02-21 00:00: 00 [facility] Primary hypertensi on Primary hypertensi on Disease Active 12-02 00:00: 00 [facility] 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 Disease Active 12-02 00:00: 00 [facility] Nonobstruc tive atheroscle rosis of coronary artery Nonobstruc tive atheroscle rosis of coronary artery Disease Active 308 00:00: 00 [facility] MDD (major depressive disorder), recurrent episode, moderate MDD (major depressive disorder), recurrent episode, moderate Disease Active 8 00:00: 00 [facility] MDD (major depressive disorder), recurrent episode, moderate MDD (major depressive disorder), recurrent episode, moderate Disease Active 8 00:00: 00 [facility] Chronic pain syndrome Chronic pain syndrome Disease Active 05-17 00:00: 00 [facility] [id number] Stage 3a chronic kidney disease Problem [facility] [id number] Gastroesop hageal reflux disease, unspecifie d whether esophagiti s present Problem [facility] [id number] Vitreous degenerati on, bilateral Problem [facility] [id number] 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, bilateral Problem [facility] [id number] Presbyopia Problem Comm on [facility] Chronic kidney disease due to hypertensi on Benign hypertensi on with chronic kidney disease, stage III Problem [facility] [id number] Primary osteoarthr itis of right knee Problem [facility] [id number] Coronary artery disease involving [place] coronary artery of [place] heart without angina pectoris Problem [facility] [id number] Vitamin D deficiency Problem [facility] Osteoporos is Osteoporos is Problem [facility] Hyperlipid emia Hyperlipid emia Problem [facility] Allergic rhinitis Allergic rhinitis Problem [facility] Rib pain Rib pain Problem [facility] [id number] Blood glucose elevated Problem [facility] Atheroscle rotic heart disease of [place] coronary artery without angina pectoris Arterioscl erotic coronary artery disease Problem [facility] Back pain Back pain Problem [facility] High cholestero l High cholestero l Problem [facility] [id number] Renal insufficie ncy Problem [facility] Cardiac arrhythmia Abnormal heart rhythm Problem [facility] [id number] Slow transit constipati on Problem [facility] Low blood pressure reading Low blood pressure reading Problem [facility] [id number] Thoracic spondylosi s Problem [facility] [id number] Screening mammogram, encounter for Problem [facility] [id number] Need for Tdap vaccinatio n Problem [facility] 440455395 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 Problem [facility] [id number] Adult general medical examinatio n Problem [facility] Hypertensi on HTN (hypertens ion) Problem [facility] Depression Depression Problem Co [facility] [id number] Other chronic pain Problem [facility] [id number] Lumbago with sciatica, left side Problem [facility] Cervical disc disorder DDD (degenerat kimberly disc disease), cervical Problem [facility] [id number] Lumbago with sciatica, right side Problem [facility] 58506992 Situationa l anxiety Problem [facility] [id number] NSTEMI (non-ST elevated myocardial infarction ) Problem [facility] 29833252 Non-ischem ic cardiomyop athy Problem [facility] [id number] Acute on chronic systolic CHF (congestiv e heart failure) Problem [facility] [id number] 93966 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 Problem [facility] [id number] Chronic systolic congestive heart failure Problem [facility] Allergies, Adverse Reactions, Alerts Allergy Name Allergy Type Status Severity Reaction(s) Onset Date Inactive Date Treating Clinician Comments Source AMLODIPI NE DRUG INGREDI Active Swelling 03-29 00:00: 00 [facility] Amlodipi ne Propensi ty to adverse reaction s Active Swelling 03-29 00:00: 00 [facility] PENICILL IN DRUG INGREDI Active Rash 10-22 00:00: 00 [facility] Penicill in Propensi ty to adverse reaction s to drug Active Rash 10-22 00:00: 00 [facility] doxycycl ine doxycycl ine Active hives, rash [facility] clindamy emmie clindamy emmie Active hives, rash [facility] 8091 Drug allergy Active hives, rash [facility] 0 Drug allergy Active hives [facility] Family History Family Member Diagnosis Comments Start Date Stop Date Sourc e Natural mother Diabetes [facility] Natural mother Heart Un[facility] Social History Social Habit Start Date Stop Date Quantity Comments Source Gender identity [facility] Sexual orientation U [facility] Sex Assigned At [facility] Alcoholic beverage intake 2024-06-27 00:00:00 2024-06-27 00:00:00 Current non-drinker of alcohol (finding) [facility] History of Social function 2024-02-17 00:00:00 2024-02-17 00:00:00 [facility] Tobacco use and exposure 2024-02-17 00:00:00 2024-02-17 00:00:00 Smokeless tobacco non-user [facility] Alcohol intake 2023-07-09 00:00:00 2023-07-09 00:00:00 Current non-drinker of alcohol (finding) [facility] Exposure to SARS-CoV-2 (event) 2022-10-26 00:00:00 2022-11-05 10:44:00 Not sure [facility] History of tobacco use 2012-10-22 00:00:00 Cigarette Smoker [facility] Smoking Status Start Date Stop Date Source Former Smoker 2024-08-28 00:00:00 2024-08-28 00:00:00 [facility] Occasional tobacco smoker 2024-02-17 00:00:00 [facility] Never Smoker [facility] Current Smoker 2022-08-18 00:00:00 [facility] Medications Ordered Medication Name Filled Medication Name Start Date Stop Date Current Medication? Ordering Clinician Indication Dosage Frequency Signature (SIG) Comments Components Source hydrOXYzine HCl 25 MG hydrOXYzine HCl 25 MG 2023-09 00:00: 00 No 1{table t} BID hydrOXYzin e HCl 25 MG buPROPion XL (WELLBUTRIN XL) 150 mg 24 hr tablet 2023-09 0 00:00: 00 Yes [id number] 150mg Take 1 tablet by mouth in the morning. Take along with 300mg for 450mg total. [facility] buPROPion XL (WELLBUTRIN XL) 300 mg 24 hr tablet 2023-09 00:00: 00 Yes [id number] 300mg Take 1 tablet by mouth in the morning. [facility] vitamin B complex (B COMPLEX 1 ORAL) 2023-09 004 09:07: 19 Yes Take by mouth. [facility] spironolact one 25 mg tablet 05-09 00:00: 00 Yes [id number] 25mg Take 1 tablet by mouth in the morning. [facility] hydroCHLORO thiazide 25 mg tablet 05-09 00:00: 00 06-27 00:00 :00 No [id number] 25mg Take 1 tablet by mouth in the morning. [facility] buprenorphi ne 10 mcg/hour patch 04-28 00:00: 00 Yes [facility] lisinopriL 20 mg tablet 04-11 00:00: 00 Yes [id number] 20mg Take 1 tablet by mouth in the morning and 1 tablet in the evening. [facility] cloNIDine (CATAPRES) tablet 0.1 mg 02-21 20:30: 00 02-21 19:28 :00 No [id number] .1mg 0.1 mg, Oral, ONCE, 1 dose, On Wed02/22/24 at 1530, Routine [facility] cloNIDine (CATAPRES) tablet 0.1 mg 02-21 19:45: 00 02-21 18:52 :00 No [id number] .1mg 0.1 mg, Oral, ONCE, 1 dose, On Wed02/22/24 at 1445, Routine [facility] alendronate (FOSAMAX) 70 mg tablet 02-21 13:42: 27 06-30 00:00 :00 No 70mg Take 1 tablet by mouth weekly. [facility] amLODIPine 10 mg tablet 02-21 00:00: 00 03-29 00:00 :00 No [id number] 10mg Take 1 tablet by mouth in the morning. [facility] rosuvastati n 20 mg tablet 02-16 13:25: 56 06-30 00:00 :00 No 20mg Take 1 tablet by mouth at bedtime. [facility] pravastatin 40 mg tablet 02-16 13:25: 56 03-29 00:00 :00 No 40mg Take 1 tablet by mouth at bedtime. [facility] buPROPion XL (WELLBUTRIN XL) 150 mg 24 hr tablet 02-16 00:00: 00 07-04 00:00 :00 No [id number] 150mg Take 1 tablet by mouth in the morning. Take along with 300mg for 450mg total. [facility] Rosuvastati n Calcium 20 MG Rosuvastati n Calcium 20 MG 02-10 00:00: 00 No 1{table t} QD Rosuvastat in Calcium 20 MG carvediloL 25 mg tablet 29 00:00: 00 Yes [id number] 25mg Take 1 tablet by mouth in the morning and 1 tablet in the evening. Take with meals. [facility] DULoxetine 60 mg capsule 2-15 00:00: 00 Yes [id number] 60mg Take 1 capsule by mouth in the morning and 1 capsule in the evening. [facility] buPROPion XL (WELLBUTRIN XL) 300 mg 24 hr tablet 2-15 00:00: 00 07-04 00:00 :00 No [id number] 300mg Take 1 tablet by mouth in the morning. [facility] lisinopriL 20 mg tablet 2022-09 2-19 00:00: 00 Yes [id number] 20mg Take 1 tablet by mouth in the morning and 1 tablet in the evening. [facility] buPROPion XL (WELLBUTRIN XL) 300 mg 24 hr tablet 2022-09 0-13 00:00: 00 11-11 00:00 :00 No [id number] 300mg Take 1 tablet by mouth in the morning. [facility] DULoxetine 60 mg capsule 2022-09 0-13 00:00: 00 11-11 00:00 :00 No [id number] 60mg Take 1 capsule by mouth in the morning and 1 capsule in the evening. [facility] carvediloL 25 mg tablet 9-18 00:00: 00 01-23 00:00 :00 No [id number] 25mg Take 1 tablet by mouth in the morning and 1 tablet in the evening. Take with meals. [facility] DULoxetine 60 mg capsule 7-13 00:00: 00 07-09 00:00 :00 No [id number] 60mg Take 1 capsule by mouth in the morning and 1 capsule in the evening. [facility] buPROPion XL 150 mg 24 hr tablet 7-13 00:00: 00 07-09 00:00 :00 No [id number] 300mg Take 2 tablets by mouth in the morning. [facility] lisinopriL 20 mg tablet 0 5-31 00:00: 00 09-14 00:00 :00 No [id number] 20mg Take 1 tablet by mouth in the morning and 1 tablet in the evening. [facility] carvediloL 25 mg tablet 0 3-17 00:00: 00 06-14 00:00 :00 No [id number] 25mg Take 1 tablet by mouth in the morning and 1 tablet in the evening. Take with meals. [facility] Metoclopram keith 5 mg TbDL 11-05 10:56: 27 Yes Take by mouth 3 (three) times daily. [facility] buPROPion XL 150 mg 24 hr tablet 11-05 00:00: 00 04-08 00:00 :00 No [id number] 300mg Take 2 tablets by mouth in the morning. [facility] DULoxetine 60 mg capsule 11-05 00:00: 00 04-08 00:00 :00 No [id number] 60mg Take 1 capsule by mouth in the morning and 1 capsule in the evening. [facility] lisinopriL 20 mg tablet 2021-09 00:00: 00 02-24 00:00 :00 No [id number] 20mg Take 1 tablet by mouth in the morning and 1 tablet in the evening. [facility] carvediloL 12.5 mg tablet 2021-09 00:00: 00 12-11 00:00 :00 No [id number] 12.5mg Take 1 tablet by mouth in the morning and 1 tablet in the evening. Take with meals. [facility] diclofenac 75 mg EC tablet 2021-09 09:44: 39 Yes 75mg Take 75 mg by mouth 3 (three) times daily with meals. [facility] DULoxetine 60 mg capsule 2021-09 00:00: 00 11-05 00:00 :00 No [id number] 60mg Take 1 capsule by mouth in the morning and 1 capsule in the evening. [facility] buPROPion XL 300 mg 24 hr tablet 2021-09 00:00: 00 11-05 00:00 :00 No [id number] 300mg Take 1 tablet by mouth in the morning. [facility] buPROPion XL (WELLBUTRIN XL) 150 mg 24 hr tablet 7-29 00:00: 00 11-05 00:00 :00 No [id number] 150mg Take 1 tablet by mouth in the morning. [facility] buPROPion XL 300 mg 24 hr tablet 04-24 00:00: 00 07-30 00:00 :00 No [id number] 300mg Take 1 tablet by mouth in the morning. [facility] DULoxetine 60 mg capsule 04-24 00:00: 00 07-30 00:00 :00 No [id number] 60mg Take 1 capsule by mouth in the morning and 1 capsule in the evening. [facility] busPIRone 15 mg tablet 04-06 00:00: 00 02-16 00:00 :00 No [id number] 15mg Take 1 tablet by mouth in the morning and 1 tablet in the evening. [facility] lisinopriL 20 mg tablet 02-19 00:00: 00 08-26 00:00 :00 No [id number] 20mg Take 1 tablet by mouth 2 (two) times daily. [facility] carvediloL 12.5 mg tablet 02-19 00:00: 00 08-24 00:00 :00 No [id number] 25mg Take 2 tablets by mouth 2 (two) times daily with meals. [facility] diclofenac 75 mg EC tablet 11-28 08:40: 03 Yes 75mg Take 75 mg by mouth 3 (three) times daily with meals. [facility] aspirin 81 mg chewable tablet 11-28 08:40: 03 Yes 81mg Take 1 tablet by mouth in the morning. [facility] cyclobenzap rine 10 mg tablet 11-28 08:40: 03 Yes 10mg Take 1 tablet by mouth in the morning and 1 tablet at noon and 1 tablet in the evening. [facility] pravastatin 40 mg tablet 2020-09 10:44: 15 Yes 40mg Take 1 tablet by mouth at bedtime. [facility] DULoxetine 60 mg capsule 2020-09 00:00: 00 04-24 00:00 :00 No [id number] 60mg Take 1 capsule by mouth 2 (two) times daily. [facility] buPROPion XL 300 mg 24 hr tablet 2020-09 00:00: 00 04-24 00:00 :00 No [id number] 300mg Take 1 tablet by mouth daily. [facility] buPROPion XL (WELLBUTRIN XL) 150 mg 24 hr tablet 2020-09 00:00: 00 04-24 00:00 :00 No [id number] 150mg Take 1 tablet by mouth daily. [facility] alendronate (FOSAMAX) 70 mg tablet 04-21 10:40: 05 Yes 70mg Take 1 tablet by mouth weekly. [facility] oxyCODONE C.R. (OXYCONTIN) 80 mg 12 hr tablet 04-21 10:40: 05 06-30 00:00 :00 No 80mg Take 1 tablet by mouth every 12 (twelve) hours. [facility] Calcium 600 MG Calcium 600 MG No 1{table t_with_ meals} BID Calcium 600 MG Aspirin 81 MG Aspirin 81 MG No 1{table t} QD Aspirin 81 MG Vitamin D3 10 MCG (400 UNIT) Vitamin D3 10 MCG (400 UNIT) No 2{table ts} QD Vitamin D3 10 MCG (400 UNIT) Spironolact one 25 MG Spironolact one 25 MG No 1{table t} Spironolac tone 25 MG Bumetanide 1 MG Bumetanide 1 MG No 1{table t} QD Bumetanide 1 MG Metoprolol Succinate ER 25 MG Metoprolol Succinate ER 25 MG No 1{table t} QD Metoprolol Succinate ER 25 MG buPROPion HCl ER (XL) 450 MG buPROPion HCl ER (XL) 450 MG No 1{table t_in_th e_morni ng} QD buPROPion HCl ER (XL) 450 MG Omeprazole 40 MG Omeprazole 40 MG No QD Omeprazole 40 MG Entresto 24-26 MG Entresto 24-26 MG No Entresto 24-26 MG Immunizations Ordered Immunization Name Filled Immunization Name Date Status Comments Source TDAP 2022-01-22 00:00:00 Completed [facility] TDAP 2022-01-22 00:00:00 Completed [facility] TDAP 2022-01-22 00:00:00 Completed [facility] TDAP 2022-01-22 00:00:00 Completed [facility] TDAP 2022-01-22 00:00:00 Completed [facility] TDAP 2022-01-22 00:00:00 Completed [facility] TDAP 2022-01-22 00:00:00 Completed [facility] TDAP 2022-01-22 00:00:00 Completed [facility] TDAP 2022-01-22 00:00:00 Completed [facility] TDAP 2022-01-22 00:00:00 Completed [facility] TDAP 2022-01-22 00:00:00 Completed [facility] TDAP 2022-01-22 00:00:00 Completed [facility] TDAP 2022-01-22 00:00:00 Completed [facility] TDAP 2022-01-22 00:00:00 Completed [facility] TDAP 2022-01-22 00:00:00 Completed [facility] Influenza Virus Vaccine 2021-07-27 00:00:00 Completed [facility] Influenza Virus Vaccine 2021-07-27 00:00:00 Completed [facility] Influenza Virus Vaccine 2021-07-27 00:00:00 Completed [facility] Influenza Virus Vaccine 2021-07-27 00:00:00 Completed [facility] Influenza Virus Vaccine 2021-07-27 00:00:00 Completed [facility] Influenza Virus Vaccine 2021-07-27 00:00:00 Completed [facility] Influenza Virus Vaccine 2021-07-27 00:00:00 Completed [facility] Influenza Virus Vaccine 2021-07-27 00:00:00 Completed [facility] Influenza Virus Vaccine 2021-07-27 00:00:00 Completed [facility] Influenza Virus Vaccine 2021-07-27 00:00:00 Completed [facility] Influenza Virus Vaccine 2021-07-27 00:00:00 Completed [facility] Influenza Virus Vaccine 2021-07-27 00:00:00 Completed [facility] Influenza Virus Vaccine 2021-07-27 00:00:00 Completed [facility] Influenza Virus Vaccine 2021-07-27 00:00:00 Completed [facility] Influenza Virus Vaccine 2021-07-27 00:00:00 Completed [facility] FluAD FluAD 2021-06-30 11:57:00 Completed [facility] FluAD FluAD 2021-06-30 11:57:00 Completed [facility] FluAD FluAD 2021-06-30 11:57:00 Completed [facility] FluAD FluAD 2021-06-30 11:57:00 Completed [facility] Prevnar 13 (PCV13) Prevnar 13 (PCV13) 2021-06-30 11:56:00 Completed [facility] Prevnar 13 (PCV13) Prevnar 13 (PCV13) 2021-06-30 11:56:00 Completed [facility] Prevnar 13 (PCV13) Prevnar 13 (PCV13) 2021-06-30 11:56:00 Completed [facility] Prevnar 13 (PCV13) Prevnar 13 (PCV13) 2021-06-30 11:56:00 Completed [facility] Flucelvax - single dose syringe Flucelvax - single dose syringe 2018-09-15 09:39:00 Completed [facility] Flucelvax - single dose syringe Flucelvax - single dose syringe 2018-09-15 09:39:00 Completed [facility] Flucelvax - single dose syringe Flucelvax - single dose syringe 2018-09-15 09:39:00 Completed [facility] Flucelvax - single dose syringe Flucelvax - single dose syringe 2018-09-15 09:39:00 Completed [facility] Flucelvax - single dose syringe Flucelvax - single dose syringe 2018-09-15 09:39:00 Completed [facility] Flucelvax - single dose syringe Flucelvax - single dose syringe 2018-09-15 00:00:00 Completed [facility] Adacel (Tdap) Adacel (Tdap) 2018-03-16 12:20:00 Completed [facility] Adacel (Tdap) Adacel (Tdap) 2018-03-16 12:20:00 Completed [facility] Adacel (Tdap) Adacel (Tdap) 2018-03-16 12:20:00 Completed [facility] Adacel (Tdap) Adacel (Tdap) 2018-03-16 12:20:00 Completed [facility] Adacel (Tdap) Adacel (Tdap) 2018-03-16 12:20:00 Completed [facility] TDAP > 7 Years-Adacel TDAP > 7 Years-Adacel 2018-03-16 00:00:00 Completed [facility] Influenza Virus Vaccine Unknown Completed [facility] TDAP Unknown Completed [facility] Influenza Virus Vaccine Unknown Completed [facility] TDAP Unknown Completed [facility] Influenza Virus Vaccine Unknown Completed [facility] TDAP Unknown Completed [facility] Influenza Virus Vaccine Unknown Completed [facility] TDAP Unknown Completed [facility] Influenza Virus Vaccine Unknown Completed [facility] TDAP Unknown Completed [facility] Influenza Virus Vaccine Unknown Completed [facility] TDAP Unknown Completed [facility] Influenza Virus Vaccine Unknown Completed [facility] TDAP Unknown Completed [facility] Influenza Virus Vaccine Unknown Completed [facility] TDAP Unknown Completed [facility] Influenza Virus Vaccine Unknown Completed [facility] TDAP Unknown Completed [facility] Influenza Virus Vaccine Unknown Completed [facility] TDAP Unknown Completed [facility] Influenza Virus Vaccine Unknown Completed [facility] TDAP Unknown Completed [facility] Influenza Virus Vaccine Unknown Completed [facility] TDAP Unknown Completed [facility] [facility] Vaccine Unknown Completed [facility] TDAP Unknown Completed [facility] Influenza Virus Vaccine Unknown Completed [facility] TDAP Unknown Completed [facility] Influenza Virus Vaccine Unknown Completed [facility] TDAP Unknown Completed [facility] Influenza Virus Vaccine Unknown Completed [facility] TDAP Unknown Completed [facility] Influenza Virus Vaccine Unknown Completed [facility] TDAP Unknown Completed [facility] Influenza Virus Vaccine Unknown Completed [facility] TDAP Unknown Completed [facility] Influenza Virus Vaccine Unknown Completed [facility] TDAP Unknown Completed [facility] Influenza Virus Vaccine Unknown Completed [facility] TDAP Unknown Completed [facility] Influenza Virus Vaccine Unknown Completed [facility] TDAP Unknown Completed [facility] Influenza Virus Vaccine Unknown Completed [facility] TDAP Unknown Completed [facility] FluAD FluAD Unknown Completed [facility] Flucelvax (ccIIV4) - SDS - 0.5mL Flucelvax (ccIIV4) - SDS - 0.5mL Unknown Completed [facility] Adacel (Tdap) Adacel (Tdap) Unknown Completed [facility] Prevnar 13 (PCV13) Prevnar 13 (PCV13) Unknown Completed [facility] FluAD FluAD Unknown Completed [facility] Flucelvax (ccIIV4) - SDS - 0.5mL Flucelvax (ccIIV4) - SDS - 0.5mL Unknown Completed [facility] Adacel (Tdap) Adacel (Tdap) Unknown Completed [facility] Prevnar 13 (PCV13) Prevnar 13 (PCV13) Unknown Completed [facility] FluAD FluAD Unknown Completed [facility] Flucelvax (ccIIV4) - SDS - 0.5mL Flucelvax (ccIIV4) - SDS - 0.5mL Unknown Completed [facility] Adacel (Tdap) Adacel (Tdap) Unknown Completed [facility] Prevnar 13 (PCV13) Prevnar 13 (PCV13) Unknown Completed [facility] FluAD FluAD Unknown Completed [facility] Flucelvax (ccIIV4) - SDS - 0.5mL Flucelvax (ccIIV4) - SDS - 0.5mL Unknown Completed [facility] Adacel (Tdap) Adacel (Tdap) Unknown Completed [facility] Prevnar 13 (PCV13) Prevnar 13 (PCV13) Unknown Completed [facility] FluAD FluAD Unknown Completed [facility] Flucelvax (ccIIV4) - SDS - 0.5mL Flucelvax (ccIIV4) - SDS - 0.5mL Unknown Completed [facility] Adacel (Tdap) Adacel (Tdap) Unknown Completed [facility] Prevnar 13 (PCV13) Prevnar 13 (PCV13) Unknown Completed [facility] FluAD FluAD Unknown Completed [facility] Flucelvax (ccIIV4) - SDS - 0.5mL Flucelvax (ccIIV4) - SDS - 0.5mL Unknown Completed [facility] Adacel (Tdap) Adacel (Tdap) Unknown Completed [facility] Prevnar 13 (PCV13) Prevnar 13 (PCV13) Unknown Completed [facility] FluAD FluAD Unknown Completed [facility] Flucelvax (ccIIV4) - SDS - 0.5mL Flucelvax (ccIIV4) - SDS - 0.5mL Unknown Completed [facility] Adacel (Tdap) Adacel (Tdap) Unknown Completed [facility] Prevnar 13 (PCV13) Prevnar 13 (PCV13) Unknown Completed [facility] FluAD FluAD Unknown Completed [facility] Flucelvax (ccIIV4) - SDS - 0.5mL Flucelvax (ccIIV4) - SDS - 0.5mL Unknown Completed [facility] Adacel (Tdap) Adacel (Tdap) Unknown Completed [facility] Prevnar 13 (PCV13) Prevnar 13 (PCV13) Unknown Completed [facility] FluAD FluAD Unknown Completed [facility] Flucelvax (ccIIV4) - SDS - 0.5mL Flucelvax (ccIIV4) - SDS - 0.5mL Unknown Completed [facility] Adacel (Tdap) Adacel (Tdap) Unknown Completed [facility] Prevnar 13 (PCV13) Prevnar 13 (PCV13) Unknown Completed [facility] FluAD FluAD Unknown Completed [facility] Flucelvax (ccIIV4) - SDS - 0.5mL Flucelvax (ccIIV4) - SDS - 0.5mL Unknown Completed [facility] Adacel (Tdap) Adacel (Tdap) Unknown Completed [facility] Prevnar 13 (PCV13) Prevnar 13 (PCV13) Unknown Completed [facility] FluAD FluAD Unknown Completed [facility] Flucelvax (ccIIV4) - SDS - 0.5mL Flucelvax (ccIIV4) - SDS - 0.5mL Unknown Completed [facility] Adacel (Tdap) Adacel (Tdap) Unknown Completed [facility] Prevnar 13 (PCV13) Prevnar 13 (PCV13) Unknown Completed [facility] FluAD FluAD Unknown Completed [facility] Flucelvax (ccIIV4) - SDS - 0.5mL Flucelvax (ccIIV4) - SDS - 0.5mL Unknown Completed [facility] Adacel (Tdap) Adacel (Tdap) Unknown Completed [facility] Prevnar 13 (PCV13) Prevnar 13 (PCV13) Unknown Completed [facility] FluAD FluAD Unknown Completed [facility] Flucelvax (ccIIV4) - SDS - 0.5mL Flucelvax (ccIIV4) - SDS - 0.5mL Unknown Completed [facility] Adacel (Tdap) Adacel (Tdap) Unknown Completed [facility] Prevnar 13 (PCV13) Prevnar 13 (PCV13) Unknown Completed [facility] FluAD FluAD Unknown Completed [facility] Flucelvax (ccIIV4) - SDS - 0.5mL Flucelvax (ccIIV4) - SDS - 0.5mL Unknown Completed [facility] Adacel (Tdap) Adacel (Tdap) Unknown Completed [facility] Prevnar 13 (PCV13) Prevnar 13 (PCV13) Unknown Completed [facility] FluAD FluAD Unknown Completed [facility] Flucelvax (ccIIV4) - SDS - 0.5mL Flucelvax (ccIIV4) - SDS - 0.5mL Unknown Completed [facility] Adacel (Tdap) Adacel (Tdap) Unknown Completed [facility] Prevnar 13 (PCV13) Prevnar 13 (PCV13) Unknown Completed [facility] FluAD FluAD Unknown Completed [facility] Flucelvax (ccIIV4) - SDS - 0.5mL Flucelvax (ccIIV4) - SDS - 0.5mL Unknown Completed [facility] Adacel (Tdap) Adacel (Tdap) Unknown Completed [facility] Prevnar 13 (PCV13) Prevnar 13 (PCV13) Unknown Completed [facility] Prevnar 20 (PCV20) Prevnar 20 (PCV20) Unknown Completed [facility] FluAD FluAD Unknown Completed [facility] Flucelvax (ccIIV4) - SDS - 0.5mL Flucelvax (ccIIV4) - SDS - 0.5mL Unknown Completed [facility] Adacel (Tdap) Adacel (Tdap) Unknown Completed [facility] Prevnar 13 (PCV13) Prevnar 13 (PCV13) Unknown Completed [facility] Prevnar 20 (PCV20) Prevnar 20 (PCV20) Unknown Completed [facility] FluAD FluAD Unknown Completed [facility] Flucelvax (ccIIV4) - SDS - 0.5mL Flucelvax (ccIIV4) - SDS - 0.5mL Unknown Completed [facility] Adacel (Tdap) Adacel (Tdap) Unknown Completed [facility] Prevnar 13 (PCV13) Prevnar 13 (PCV13) Unknown Completed [facility] Prevnar 20 (PCV20) Prevnar 20 (PCV20) Unknown Completed [facility] FluAD FluAD Unknown Completed [facility] Flucelvax (ccIIV4) - SDS - 0.5mL Flucelvax (ccIIV4) - SDS - 0.5mL Unknown Completed [facility] Adacel (Tdap) Adacel (Tdap) Unknown Completed [facility] Prevnar 13 (PCV13) Prevnar 13 (PCV13) Unknown Completed [facility] Vital Signs Vital Name Observation Time Observation Value Comments S ource height 2024-08-30 10:20:00 58 [in_i] [facility] weight 2024-08-30 10:20:00 136 [lb_av] [facility] temperature 2024-08-30 10:20:00 96.8 [degF] [facility] bmi 2024-08-30 10:20:00 28.42 kg/m2 [facility] oximetry 2024-08-30 10:20:00 97 % [facility] respiratory rate 2024-08-30 10:20:00 16 /min [facility] blood pressure systolic 2024-08-30 10:20:00 126 mm[Hg] [facility] blood pressure diastolic 2024-08-30 10:20:00 84 mm[Hg] [facility] height 2024-07-24 14:00:00 58 [in_i] [facility] weight 2024-07-24 14:00:00 127.8 [lb_av] [facility] temperature 2024-07-24 14:00:00 97.1 [degF] [facility] bmi 2024-07-24 14:00:00 26.71 kg/m2 [facility] oximetry 2024-07-24 14:00:00 99 % [facility] respiratory rate 2024-07-24 14:00:00 17 /min [facility] blood pressure systolic 2024-07-24 14:00:00 128 mm[Hg] [facility] blood pressure diastolic 2024-07-24 14:00:00 74 mm[Hg] [facility] Systolic blood pressure 2024-06-30 14:03:00 121 mm[Hg] [facility] Diastolic blood pressure 2024-06-30 14:03:00 78 mm[Hg] [facility] Heart rate 2024-06-30 14:03:00 80 /min [facility] Body temperature 2024-06-30 14:03:00 36.56 Sarah [facility] Body weight 2024-06-30 14:03:00 58.877 kg [facility] BMI 2024-06-30 14:03:00 35.78 kg/m2 [facility] Oxygen saturation in Arterial blood by Pulse oximetry 2024-06-30 14:03:00 98 /min [facility] Systolic blood pressure 2024-06-27 18:20:00 115 mm[Hg] [facility] Diastolic blood pressure 2024-06-27 18:20:00 70 mm[Hg] [facility] Heart rate 2024-06-27 18:20:00 86 /min [facility] Respiratory rate 2024-06-27 18:20:00 16 /min [facility] Body height 2024-06-27 18:20:00 128.3 cm [facility] Body weight 2024-06-27 18:20:00 59.557 kg [facility] BMI 2024-06-27 18:20:00 36.20 kg/m2 [facility] Oxygen saturation in Arterial blood by Pulse oximetry 2024-06-27 18:20:00 97 /min [facility] Systolic blood pressure 2024-05-09 19:02:00 151 mm[Hg] [facility] Diastolic blood pressure 2024-05-09 19:02:00 89 mm[Hg] [facility] Heart rate 2024-05-09 19:02:00 107 /min [facility] Oxygen saturation in Arterial blood by Pulse oximetry 2024-05-09 19:02:00 95 /min [facility] Respiratory rate 2024-05-09 18:59:00 18 /min [facility] Body height 2024-05-09 18:59:00 151.1 cm [facility] Body weight 2024-05-09 18:59:00 57.97 kg [facility] BMI 2024-05-09 18:59:00 25.38 kg/m2 [facility] Systolic blood pressure 2024-03-29 18:31:00 173 mm[Hg] taken w/pt's bp machine [facility] Diastolic blood pressure 2024-03-29 18:31:00 108 mm[Hg] taken w/pt's bp machine [facility] Heart rate 2024-03-29 18:31:00 81 /min [facility] Body temperature 2024-03-29 18:29:00 36.44 Sarah [facility] Respiratory rate 2024-03-29 18:29:00 17 /min [facility] Body height 2024-03-29 18:29:00 148.6 cm [facility] Body weight 2024-03-29 18:29:00 58.06 kg [facility] BMI 2024-03-29 18:29:00 26.30 kg/m2 [facility] Oxygen saturation in Arterial blood by Pulse oximetry 2024-03-29 18:29:00 96 /min [facility] Systolic blood pressure 2024-02-22 20:12:00 172 mm[Hg] [facility] Diastolic blood pressure 2024-02-22 20:12:00 99 mm[Hg] [facility] Heart rate 2024-02-22 19:22:00 81 /min [facility] Oxygen saturation in Arterial blood by Pulse oximetry 2024-02-22 19:22:00 98 /min [facility] Body temperature 2024-02-22 18:39:00 36.56 Sarah [facility] Respiratory rate 2024-02-22 18:39:00 17 /min [facility] Body weight 2024-02-22 18:39:00 55.974 kg [facility] BMI 2024-02-22 18:39:00 25.35 kg/m2 [facility] Body height 2024-02-22 18:37:00 148.6 cm per pt [facility] height 2024-02-11 08:40:00 58 [in_i] [facility] weight 2024-02-11 08:40:00 125.2 [lb_av] [facility] temperature 2024-02-11 08:40:00 97.2 [degF] [facility] bmi 2024-02-11 08:40:00 26.16 kg/m2 [facility] oximetry 2024-02-11 08:40:00 97 % [facility] respiratory rate 2024-02-11 08:40:00 16 /min [facility] blood pressure systolic 2024-02-11 08:40:00 134 mm[Hg] [facility] blood pressure diastolic 2024-02-11 08:40:00 72 mm[Hg] [facility] height 2024-02-11 08:40:00 58 [in_i] [facility] weight 2024-02-11 08:40:00 125.2 [lb_av] [facility] temperature 2024-02-11 08:40:00 97.2 [degF] [facility] bmi 2024-02-11 08:40:00 26.16 kg/m2 [facility] oximetry 2024-02-11 08:40:00 97 % [facility] respiratory rate 2024-02-11 08:40:00 16 /min [facility] blood pressure systolic 2024-02-11 08:40:00 134 mm[Hg] [facility] blood pressure diastolic 2024-02-11 08:40:00 72 mm[Hg] [facility] height 2024-02-11 08:40:00 58 [in_i] [facility] weight 2024-02-11 08:40:00 125.2 [lb_av] [facility] temperature 2024-02-11 08:40:00 97.2 [degF] [facility] bmi 2024-02-11 08:40:00 26.16 kg/m2 [facility] oximetry 2024-02-11 08:40:00 97 % [facility] respiratory rate 2024-02-11 08:40:00 16 /min [facility] blood pressure systolic 2024-02-11 08:40:00 134 mm[Hg] [facility] blood pressure diastolic 2024-02-11 08:40:00 72 mm[Hg] [facility] height 2023-09-30 10:45:00 58 [in_i] [facility] weight 2023-09-30 10:45:00 125 [lb_av] [facility] temperature 2023-09-30 10:45:00 98.0 [degF] [facility] bmi 2023-09-30 10:45:00 26.1 kg/m2 [facility] blood pressure systolic 2023-09-30 10:45:00 132 mm[Hg] [facility] blood pressure diastolic 2023-09-30 10:45:00 76 mm[Hg] [facility] height 2023-08-31 09:00:00 58 [in_i] [facility] weight 2023-08-31 09:00:00 125 [lb_av] [facility] temperature 2023-08-31 09:00:00 98.6 [degF] [facility] bmi 2023-08-31 09:00:00 26.12 kg/m2 [facility] blood pressure systolic 2023-08-31 09:00:00 128 mm[Hg] [facility] blood pressure diastolic 2023-08-31 09:00:00 74 mm[Hg] [facility] height 2023-08-12 08:30:00 58 [in_i] [facility] weight 2023-08-12 08:30:00 125 [lb_av] [facility] temperature 2023-08-12 08:30:00 98.0 [degF] [facility] bmi 2023-08-12 08:30:00 26.12 kg/m2 [facility] blood pressure systolic 2023-08-12 08:30:00 124 mm[Hg] [facility] blood pressure diastolic 2023-08-12 08:30:00 72 mm[Hg] [facility] height 2023-07-13 14:20:00 58 [in_i] [facility] weight 2023-07-13 14:20:00 124.8 [lb_av] [facility] temperature 2023-07-13 14:20:00 97.3 [degF] [facility] bmi 2023-07-13 14:20:00 26.08 kg/m2 [facility] oximetry 2023-07-13 14:20:00 95 % [facility] respiratory rate 2023-07-13 14:20:00 16 /min [facility] blood pressure systolic 2023-07-13 14:20:00 136 mm[Hg] [facility] blood pressure diastolic 2023-07-13 14:20:00 82 mm[Hg] [facility] height 2023-07-13 08:15:00 58 [in_i] [facility] weight 2023-07-13 08:15:00 125 [lb_av] [facility] bmi 2023-07-13 08:15:00 26.12 kg/m2 [facility] blood pressure systolic 2023-07-13 08:15:00 129 mm[Hg] [facility] blood pressure diastolic 2023-07-13 08:15:00 84 mm[Hg] [facility] height 2023-06-15 15:00:00 58 [in_i] [facility] weight 2023-06-15 15:00:00 125.9 [lb_av] [facility] bmi 2023-06-15 15:00:00 26.31 kg/m2 [facility] blood pressure systolic 2023-06-15 15:00:00 134 mm[Hg] [facility] blood pressure diastolic 2023-06-15 15:00:00 84 mm[Hg] [facility] height 2023-06-01 09:20:00 60.00 [in_i] [facility] weight 2023-06-01 09:20:00 124 [lb_av] [facility] temperature 2023-06-01 09:20:00 97.4 [degF] [facility] bmi 2023-06-01 09:20:00 24.21 kg/m2 [facility] oximetry 2023-06-01 09:20:00 96 % [facility] respiratory rate 2023-06-01 09:20:00 16 /min [facility] blood pressure systolic 2023-06-01 09:20:00 111 mm[Hg] [facility] blood pressure diastolic 2023-06-01 09:20:00 74 mm[Hg] [facility] Systolic blood pressure 2023-04-19 15:10:00 128 mm[Hg] [facility] Diastolic blood pressure 2023-04-19 15:10:00 71 mm[Hg] [facility] Heart rate 2023-04-19 15:10:00 61 /min [facility] Respiratory rate 2023-04-19 15:10:00 19 /min [facility] Body height 2023-04-19 15:10:00 148.6 cm [facility] Body weight 2023-04-19 15:10:00 56.564 kg [facility] BMI 2023-04-19 15:10:00 25.62 kg/m2 [facility] Oxygen saturation in Arterial blood by Pulse oximetry 2023-04-19 15:10:00 97 /min [facility] height 2022-08-18 16:20:00 60.00 [in_i] [facility] weight 2022-08-18 16:20:00 136.4 [lb_av] [facility] temperature 2022-08-18 16:20:00 97.7 [degF] [facility] bmi 2022-08-18 16:20:00 26.64 kg/m2 [facility] oximetry 2022-08-18 16:20:00 96 % [facility] respiratory rate 2022-08-18 16:20:00 18 /min [facility] blood pressure systolic 2022-08-18 16:20:00 132 mm[Hg] [facility] blood pressure diastolic 2022-08-18 16:20:00 82 mm[Hg] [facility] height 2022-05-19 11:00:00 60.00 [in_i] [facility] weight 2022-05-19 11:00:00 134 [lb_av] [facility] bmi 2022-05-19 11:00:00 26.17 kg/m2 [facility] Systolic blood pressure 2022-04-22 15:14:00 136 mm[Hg] [facility] Diastolic blood pressure 2022-04-22 15:14:00 78 mm[Hg] [facility] Heart rate 2022-04-22 15:14:00 65 /min [facility] Body temperature 2022-04-22 15:12:00 35.83 Sarah [facility] Respiratory rate 2022-04-22 15:12:00 16 /min [facility] Body height 2022-04-22 15:12:00 147.3 cm [facility] Body weight 2022-04-22 15:12:00 60.328 kg [facility] BMI 2022-04-22 15:12:00 27.80 kg/m2 [facility] Oxygen saturation in Arterial blood by Pulse oximetry 2022-04-22 15:12:00 98 /min [facility] height 2022-02-16 11:00:00 60.00 [in_i] [facility] weight 2022-02-16 11:00:00 134.8 [lb_av] [facility] temperature 2022-02-16 11:00:00 97.5 [degF] [facility] bmi 2022-02-16 11:00:00 26.32 kg/m2 [facility] oximetry 2022-02-16 11:00:00 97 % [facility] respiratory rate 2022-02-16 11:00:00 17 /min [facility] blood pressure systolic 2022-02-16 11:00:00 139 mm[Hg] [facility] blood pressure diastolic 2022-02-16 11:00:00 85 mm[Hg] [facility] height 2021-11-18 10:20:00 60.00 [in_i] [facility] weight 2021-11-18 10:20:00 139.2 [lb_av] [facility] temperature 2021-11-18 10:20:00 98.0 [degF] [facility] bmi 2021-11-18 10:20:00 27.18 kg/m2 [facility] oximetry 2021-11-18 10:20:00 97 % [facility] respiratory rate 2021-11-18 10:20:00 16 /min [facility] blood pressure systolic 2021-11-18 10:20:00 138 mm[Hg] [facility] blood pressure diastolic 2021-11-18 10:20:00 72 mm[Hg] [facility] height 2021-06-30 11:00:00 60.00 [in_i] [facility] weight 2021-06-30 11:00:00 129 [lb_av] [facility] temperature 2021-06-30 11:00:00 97.4 [degF] [facility] bmi 2021-06-30 11:00:00 25.19 kg/m2 [facility] oximetry 2021-06-30 11:00:00 99 % [facility] respiratory rate 2021-06-30 11:00:00 16 /min [facility] blood pressure systolic 2021-06-30 11:00:00 134 mm[Hg] [facility] blood pressure diastolic 2021-06-30 11:00:00 70 mm[Hg] [facility] height 2021-03-28 10:40:00 60.00 [in_i] [facility] weight 2021-03-28 10:40:00 128.6 [lb_av] [facility] temperature 2021-03-28 10:40:00 97.2 [degF] [facility] bmi 2021-03-28 10:40:00 25.11 kg/m2 [facility] oximetry 2021-03-28 10:40:00 95 % [facility] respiratory rate 2021-03-28 10:40:00 15 /min [facility] blood pressure systolic 2021-03-28 10:40:00 116 mm[Hg] [facility] blood pressure diastolic 2021-03-28 10:40:00 71 mm[Hg] [facility] Systolic blood pressure 2024-06-30 14:03:00 121 mm[Hg] [facility] Diastolic blood pressure 2024-06-30 14:03:00 78 mm[Hg] [facility] Heart rate 2024-06-30 14:03:00 80 /min [facility] Body temperature 2024-06-30 14:03:00 36.56 Sarah [facility] Body weight 2024-06-30 14:03:00 58.877 kg [facility] BMI 2024-06-30 14:03:00 35.78 kg/m2 [facility] Oxygen saturation in Arterial blood by Pulse oximetry 2024-06-30 14:03:00 98 /min [facility] Respiratory rate 2024-06-27 18:20:00 16 /min [facility] Body height 2024-06-27 18:20:00 128.3 cm [facility] Systolic blood pressure 2024-02-17 18:29:00 154 mm[Hg] [facility] Diastolic blood pressure 2024-02-17 18:29:00 89 mm[Hg] [facility] Heart rate 2024-02-17 18:29:00 86 /min [facility] Respiratory rate 2024-02-17 18:21:00 20 /min [facility] [facility] height 2024-02-17 18:21:00 148.6 cm [facility] Body weight 2024-02-17 18:21:00 55.792 kg [facility] BMI 2024-02-17 18:21:00 25.27 kg/m2 [facility] Respiratory rate 2023-11-11 16:09:00 20 /min [facility] Body height 2023-11-11 16:09:00 148.6 cm [facility] Body weight 2023-11-11 16:09:00 54.931 kg [facility] BMI 2023-11-11 16:09:00 24.88 kg/m2 [facility] Systolic blood pressure 2023-07-09 20:39:00 119 mm[Hg] [facility] Diastolic blood pressure 2023-07-09 20:39:00 71 mm[Hg] [facility] Heart rate 2023-07-09 20:39:00 77 /min [facility] Respiratory rate 2023-07-09 20:36:00 18 /min [facility] Body height 2023-07-09 20:36:00 148.6 cm [facility] Body weight 2023-07-09 20:36:00 56.473 kg [facility] BMI 2023-07-09 20:36:00 25.58 kg/m2 [facility] Oxygen saturation in Arterial blood by Pulse oximetry 2023-04-19 15:10:00 97 /min [facility] Systolic blood pressure 2023-04-08 14:45:00 130 mm[Hg] [facility] Diastolic blood pressure 2023-04-08 14:45:00 70 mm[Hg] [facility] Heart rate 2023-04-08 14:45:00 68 /min [facility] Respiratory rate 2023-04-08 14:45:00 18 /min [facility] Body height 2023-04-08 14:45:00 147.3 cm [facility] Body weight 2023-04-08 14:45:00 56.972 kg [facility] BMI 2023-04-08 14:45:00 26.25 kg/m2 [facility] Systolic blood pressure 2022-11-05 16:51:00 136 mm[Hg] [facility] Diastolic blood pressure 2022-11-05 16:51:00 80 mm[Hg] [facility] Heart rate 2022-11-05 16:51:00 67 /min [facility] Respiratory rate 2022-11-05 16:51:00 20 /min [facility] Body height 2022-11-05 16:51:00 147.3 cm [facility] Body weight 2022-11-05 16:51:00 61.598 kg [facility] BMI 2022-11-05 16:51:00 28.38 kg/m2 [facility] Systolic blood pressure 2022-07-30 14:44:00 136 mm[Hg] [facility] Diastolic blood pressure 2022-07-30 14:44:00 85 mm[Hg] [facility] Heart rate 2022-07-30 14:44:00 64 /min [facility] Respiratory rate 2022-07-30 14:44:00 18 /min [facility] Body height 2022-07-30 14:44:00 147.3 cm [facility] Body weight 2022-07-30 14:44:00 61.326 kg [facility] BMI 2022-07-30 14:44:00 28.26 kg/m2 [facility] Body temperature 2022-04-22 15:12:00 35.83 Sarah [facility] Oxygen saturation in Arterial blood by Pulse oximetry 2022-04-22 15:12:00 98 /min [facility] Procedures Procedure Date / Time Performed Performing Clinician Source RENAL ARTERY DUPLEX - BY VASCULAR LAB 2024-06-20 13:43:37 Quentin Ruelas [facility] RENAL ARTERY DUPLEX - BY VASCULAR LAB 2024-06-20 13:43:37 Quentin Ruelas [facility] SLEEP STUDY DATA REPORT 2024-05-16 18:45:03 Ricci Ruelas [facility] SLEEP LAB RESULTS 2024-05-16 18:43:54 [facility] (NA, K, CL, CO2, GLUCOSE, BUN, CREATININE, CA) 2024-05-16 16:55:00 Quentin Ruelas [facility] HB ECG ROUTINE & RHYTHM STRIP 2024-05-09 18:54:25 Quentin Ruelas [facility] HB ECG ROUTINE & RHYTHM STRIP 2024-05-09 18:54:25 Quentin Ruelas [facility] TRANSTHORACIC ECHO (TTE) COMPLETE 2024-04-27 14:30:32 Quentin Ruelas [facility] TRANSTHORACIC ECHO (TTE) COMPLETE 2024-04-27 14:30:32 Quentin Ruelas [facility] NOTICE OF BILLING PRACTICES FOR MEDICARE PATIENTS 2023-11-11 16:06:18 Doctor Unassigned, [place] [facility] NOTICE OF BILLING PRACTICES FOR MEDICARE PATIENTS 2023-11-11 16:06:18 Doctor Unassigned, [place] [facility] MEDICAL RELEASE/CLEARANCE FORMS 2023-07-15 05:01:00 Doctor Unassigned, [place] [facility] BASIC METABOLIC PANEL (NA, K, CL, CO2, GLUCOSE, BUN, CREATININE, CA) 2023-04-19 15:39:00 Quentin Ruelas [facility] HB ECG ROUTINE & RHYTHM STRIP 2023-04-19 15:13:36 Quentin Ruelas [facility] PATIENT FINANCIAL POLICY 2023-04-08 14:50:48 Doctor Unassigned, [place] [facility] ASSIGNMENT OF BENEFITS 2023-04-08 14:40:41 Docto r Unassigned, [place] [facility] CONSENT/REFUSAL FOR DIAGNOSIS AND TREATMENT 2023-04-08 14:40:23 Doctor Unassigned, [place] [facility] CONSENT/REFUSAL FOR DIAGNOSIS AND TREATMENT 2023-04-08 14:40:23 Doctor Unassigned, [place] [facility] CONSENT TO TREATMENT WITH PSYCHOACTIVE MEDICATION 2022-11-05 06:01:00 Doctor Unassigned, [place] [facility] AUTHORIZATION FOR RELEASE OF PHI 2022-05-28 05:01:00 Doctor Unassigned, [place] [facility] AUTHORIZATION FOR RELEASE OF PHI 2022-05-28 05:01:00 Doctor Unassigned, [place] [facility] EXTERNAL PROVIDER - ADC CARDIOLOGY 2022-05-19 05:01:00 Doctor Unassigned, [place] [facility] Encounters Start Date/Time End Date/Time Encounter Type Admission Type [facility]ending [facility] Care Facility Care Department Encounter ID Source 2024-08-22 08:11:00 Outpatient Kaitlin Srivastava [facility] [id number] [facility] 2024-02-11 08:35:00 Outpatient Kaitlin Srivastava [facility] [id number] [facility] 2024-02-09 13:47:00 Outpatient SrivastavaKaitlin thomas [facility] [id number] [facility] 2023-09-16 16:14:00 Outpatient SrivastavaJamini [facility] [id number] [facility] 2023-07-29 13:50:00 Outpatient SrivastavaJamini [facility] [id number] [facility] 2023-07-13 13:07:00 Outpatient SrivastavaJamini [facility] [id number] [facility] 2023-07-09 08:19:00 Outpatient SrivastavaKaitlin [facility] [id number] [facility] 2023-06-17 16:10:00 Outpatient SrivastavaKaitlin [facility] [id number] [facility] 2023-06-01 09:10:00 Outpatient SrivastavaKaitlin thomas [facility] [id number] [facility] 2023-05-28 10:06:00 Outpatient SrivastavaKaitlin thomas [facility] [id number] [facility] 2023-05-14 11:20:00 Outpatient SrivastavaKaitlin [facility] [id number] [facility] 2022-10-27 09:57:01 Outpatient JOHNSONLuba [facility] [id number] [facility] 2022-09-17 08:57:57 Outpatient [facility] [id number] [facility] 2022-08-18 10:51:01 Outpatient Luba Johnson [facility] [id number] [facility] 2022-06-12 11:03:20 Outpatient [facility] [id number] [facility] 2022-06-10 14:11:00 Outpatient Johnson, Na [facility] [id number] [facility] 2022-05-19 09:36:00 Outpatient Johnson, Na [facility] [id number] [facility] 2022-05-15 09:16:00 Outpatient Johnson, Na [facility] [id number] [facility] 2022-02-24 08:31:00 Outpatient Johnson, Na [facility] [id number] [facility] 2021-11-18 10:14:00 Outpatient Johnson, Na [facility] [id number] [facility] 2021-10-22 14:31:18 Outpatient Johnson, Na [facility] [id number] [facility] 2021-10-22 13:56:02 Outpatient Johnson, Na [facility] [id number] [facility] 2021-10-22 13:55:16 Outpatient Johnson, Na [facility] [id number] [facility] 2021-10-22 13:05:24 Outpatient Johnson, Na [facility] [id number] [facility] 2021-10-22 12:39:24 Outpatient Johnson, Na [facility]C [facility] [id number] [facility] 2021-10-22 12:38:50 Outpatient Johnson, Na [facility] [id number] [facility] 2021-10-22 12:05:48 Outpatient Johnson, Na [facility] [id number] [facility] 2021-10-22 11:37:26 Outpatient Johnson, Na [facility]C [facility] [id number] [facility] 2024-09-07 00:00:00 2024-09-07 00:00:00 (TEL) [facility]C [facility] [id number] [facility] 2024-09-05 00:00:00 2024-09-05 00:00:00 (TEL) [facility]C [facility] [id number] [facility] 2024-08-30 00:00:00 2024-08-30 00:00:00 OFFICE VISIT ESTAB PT LEVEL 4 [facility] [id number] [facility] 2024-08-28 11:20:00 2024-08-28 11:20:00 Outpatient QUENTIN SORENSEN [facility] [id number] [facility] 2024-08-09 00:00:00 2024-08-09 00:00:00 (TEL) STLMLC [facility] [id number] [facility] 2024-07-24 00:00:00 2024-07-24 00:00:00 (TEL) [facility]C [facility] [id number] [facility] 2024-07-24 00:00:00 2024-07-24 00:00:00 (HOSP F/U) Hospital Follow Up [facility]C ST[facility]C [id number] [facility] 2024-06-30 09:00:00 2024-06-30 09:41:10 Outpatient CARLYLE JENSEN [facility] [id number] [facility] 2024-06-30 09:00:00 2024-06-30 09:41:10 Office Visit Carlyle Menezes 1.2.840.1 44042.1.1 3.104.2.7 .3.064717 .8 [id number] [facility] 2024-06-30 00:00:00 2024-06-30 00:00:00 Travel 1Sandi2.840.1 23322.1.1 3.104.2.7 .3.909315 .8 1.2.840.114 350.1.13.10 4.2.7.3.698 084.8 [id number] [facility] 2024-06-27 13:20:00 2024-06-27 13:31:42 Outpatient R QUENTIN RUELAS [facility] [id number] [facility] 2024-06-27 13:20:00 2024-06-27 13:31:42 Office Visit Quentin Ruelas 1.2.840.1 65808.1.1 3.104.2.7 .3.811043 .8 [id number] [facility] 2024-06-27 00:00:00 2024-06-27 00:00:00 Travel 1.2.840.1 39500.1.1 3.104.2.7 .3.071217 .8 1.2.840.114 350.1.13.10 4.2.7.3.698 084.8 [id number] [facility] 2024-06-21 00:00:00 2024-06-21 12:58:52 Telephone Quentin Ruelas 1.2.840.1 86475.1.1 3.104.2.7 .3.546931 .8 [id number] [facility] 2024-06-20 07:41:33 2024-06-20 23:59:00 Outpatient R QUENTIN RUELAS [facility] [id number] [facility] 2024-06-20 07:41:33 2024-06-20 23:59:00 Hospital Encounter Quentin Ruelas 1.2.840.1 37814.1.1 3.104.2.7 .3.119047 .8 [id number] [facility] 2024-06-20 00:00:00 2024-06-20 00:00:00 Travel 1.2.840.1 32607.1.1 3.104.2.7 .3.758727 .8 1.2.840.114 350.1.13.10 4.2.7.3.698 084.8 [id number] [facility] 2024-06-13 11:00:00 2024-06-13 11:00:00 Outpatient R QUENTIN RUELAS [facility] [id number] [facility] 2024-05-30 10:00:00 2024-05-30 10:00:00 [facility] [id number] [facility] 2024-05-18 00:00:00 2024-05-18 10:00:01 Telephone Christine Ruelasstephanadrianna 1.2.840.1 67932.1.1 3.104.2.7 .3.752548 .8 [id number] [facility] 2024-05-16 11:30:00 2024-05-16 11:45:00 Shucker Visit GuillermoChristinekeely [place], [facility] 1.2.840.1 44272.1.1 3.104.2.7 .3.987370 .8 [id number] [facility] 2024-05-16 11:30:00 2024-05-16 11:30:00 Outpatient R QUENTIN RUELAS [facility] [id number] [facility] 2024-05-16 00:00:00 2024-05-16 00:00:00 Orders Only GuillermoChristinekeely 1.2.840.1 48161.1.1 3.104.2.7 .3.707285 .8 [id number] [facility] 2024-05-16 00:00:00 2024-05-16 00:00:00 Orders Only Guillermo Quentin 1.2.840.1 45071.1.1 3.104.2.7 .3.660807 .8 [id number] [facility] 2024-05-11 13:00:00 2024-05-11 13:15:00 Shucker Visit Lisa Guan 1.2.840.1 55431.1.1 3.104.2.7 .3.456323 .8 [id number] [facility] 2024-05-11 13:00:00 2024-05-11 13:00:00 Outpatient R LISA GUAN STRACARLOS ENRIQUELuis Daniel [facility] [id number] [facility] 2024-05-11 00:00:00 2024-05-11 00:00:00 Travel 1.2.840.1 43834.1.1 3.104.2.7 .3.459610 .8 1.2.840.114 350.1.13.10 4.2.7.3.698 084.8 [id number] [facility] 2024-05-09 14:00:00 2024-05-09 15:18:37 Outpatient R QUENTIN RUELAS [facility] [id number] [facility] 2024-05-09 14:00:00 2024-05-09 15:18:37 Office Visit GuillermoChristinestephanadrianna 1.2.840.1 93610.1.1 3.104.2.7 .3.446821 .8 [id number] [facility] 2024-05-08 00:00:00 2024-05-08 14:41:46 Telephone Guillermo Christinekeely 1.2.840.1 65098.1.1 3.104.2.7 .3.417451 .8 [id number] [facility] 2024-04-28 00:00:00 2024-05-02 10:12:18 Telephone Quentin Ruelas 1.2.840.1 17332.1.1 3.104.2.7 .3.161733 .8 [id number] [facility] 2024-04-27 08:43:12 2024-04-27 23:59:00 Outpatient R QUENTIN RUELAS [facility] [id number] [facility] 2024-04-27 08:43:12 2024-04-27 23:59:00 Hospital Encounter Quentin Ruelas 1.2.840.1 04209.1.1 3.104.2.7 .3.384085 .8 [id number] [facility] 2024-04-27 00:00:00 2024-04-27 00:00:00 Travel 1.2.840.1 37248.1.1 3.104.2.7 .3.365636 .8 1.2.840.114 350.1.13.10 4.2.7.3.698 084.8 [id number] [facility] 2024-04-19 10:00:00 2024-04-19 10:00:00 [id number] [facility] 2024-04-17 13:00:00 2024-04-17 13:00:00 Outpatient R CHRISTINE RUELASKEELY [facility] [id number] [facility] 2024-04-11 00:00:00 2024-04-11 00:00:00 Refill Ricci Ruelasadrianna 1.2.840.1 11767.1.1 3.104.2.7 .3.337601 .8 [id number] [facility] 2024-03-29 13:40:00 2024-03-29 13:44:59 Outpatient R GUILLERMO QUENTIN [facility] [id number] [facility] 2024-03-29 13:40:00 2024-03-29 13:44:59 [facility] 1.2.840.114 350.1.13.10 4.2.7.2.686 [id number] [facility] 2024-03-20 00:00:00 2024-03-20 15:44:15 [facility] 1.2.840.114 350.1.13.10 4.2.7.2.686 [id number] [facility] 2024-03-07 00:00:00 2024-03-08 08:15:11 [facility] 1.2.840.114 350.1.13.10 4.2.7.2.686 [id number] [facility] 2024-02-24 00:00:00 2024-02-24 14:00:03 [facility] PROFMIYA [facility] 1.2.840.114 350.1.13.10 4.2.7.2.686 [id number] [facility] 2024-02-24 00:00:00 2024-02-24 13:11:40 [facility] PROFCINDYIO NAL [facility]ILDING 1.2.840.114 350.1.13.10 4.2.7.2.686 [id number] [facility] 2024-02-22 14:00:00 2024-02-22 14:20:00 [facility] DON[facility]DO [facility] 1.2.840.114 350.1.13.10 4.2.7.2.686 [id number] [facility] 2024-02-22 14:00:00 2024-02-22 14:00:00 [facility] [id number] [facility] 2024-02-17 13:30:00 2024-02-17 13:30:00 Outpatient LISS HUNT [facility] [id number] [facility] 2024-02-17 00:00:00 2024-02-17 00:00:00 Travel 1.2.840.1 36293.1.1 3.104.2.7 .3.151432 .8 1.2.840.114 350.1.13.10 4.2.7.3.698 084.8 [id number] [facility] 2024-02-15 00:00:00 2024-02-15 00:00:00 (TEL) STLMLC STLMLC [id number] [facility] 2024-02-11 00:00:00 2024-02-11 00:00:00 OFFICE VISIT ESTAB PT LEVEL 4 STLMLC STLMLC [id number] [facility] 2024-02-11 00:00:00 2024-02-11 00:00:00 WELCOME TO MEDICARE PREV PHY EXAM STLC STLC [id number] [facility] 2024-01-24 00:00:00 2024-01-24 11:17:36 RefQuentin Jaeger 1.2.840.1 76788.1.1 3.104.2.7 .3.504269 .8 [id number] [facility] 2023-11-11 10:00:00 2023-11-11 10:44:51 Outpatient TIANA AVENDANO [facility] [id number] [facility] 2023-11-11 00:00:00 2023-11-11 00:00:00 Orders Only Doctor Unassigned, [place] 1.2.840.1 02912.1.1 3.104.2.7 .3.062453 .8 [id number] [facility] 2023-11-11 00:00:00 2023-11-11 00:00:00 Travel 1.2.840.1 44974.1.1 3.104.2.7 .3.859007 .8 1.2.840.114 350.1.13.10 4.2.7.3.698 084.8 [id number] [facility] 2023-10-28 10:45:00 2023-10-28 10:45:00 Outpatient JOE MORENO [facility] [id number] Omer santana [facility] 2023-10-08 12:45:00 2023-10-08 12:45:00 Outpatient HERMAN KAYE [facility] [id number] [facility] 2023-09-30 00:00:00 2023-09-30 00:00:00 NON-BILLAB LE VISIT STLMLC STLMLC [id number] [facility] 2023-09-14 00:00:00 2023-09-14 00:00:00 Refill Quentin Ruelas 1.2.840.1 71229.1.1 3.104.2.7 .3.190846 .8 [id number] [facility] 2023-09-14 00:00:00 2023-09-14 00:00:00 (TEL) STLMLC STLMLC [id number] [facility] 2023-09-06 00:00:00 2023-09-06 00:00:00 (TEL) STLMLC STLMLC [id number] [facility] 2023-08-31 00:00:00 2023-08-31 00:00:00 NON-BILLAB LE VISIT STLMLC STLMLC [id number] [facility] 2023-08-12 00:00:00 2023-08-12 00:00:00 NON-BILLAB LE VISIT STLMLC STLMLC [id number] [facility] 2023-07-22 00:00:00 2023-07-22 00:00:00 (TEL) STLMLC STLMLC [id number] [facility] 2023-07-15 00:00:00 2023-07-15 00:00:00 Telephone Quentin Ruelas [facility] 1.2.840.114 350.1.13.10 4.2.7.2.686 [id number] [facility] 2023-07-15 00:00:00 2023-07-15 00:00:00 Telephone Guillermo Quentin [facility] 1.2840.114 350.1.13.10 4.2.7.2.686 [id number] [facility] 2023-07-15 00:00:00 2023-07-15 00:00:00 Orders Only Doctor Unassigned, [place] [facility] 1.2840.114 350.1.13.10 4.2.7.2.686 [id number] [facility] 2023-07-14 00:00:00 2023-07-14 00:00:00 (TEL) STLMLC STLMLC [id number] [facility] 2023-07-13 00:00:00 2023-07-13 00:00:00 OFFICE VISIT ESTAB PT LEVEL 4 STLMLC STLMLC [id number] [facility] 2023-07-13 00:00:00 2023-07-13 00:00:00 (TEL) STLMLC STLMLC [id number] [facility] 2023-07-13 00:00:00 2023-07-13 00:00:00 OFFICE VISIT ESTAB PT LEVEL 4 STLMLC STLMLC [id number] [facility] 2023-07-13 00:00:00 2023-07-13 00:00:00 (TEL) STLMLC STLMLC [id number] [facility] 2023-07-09 15:45:00 2023-07-09 16:01:47 Outpatient HERMAN KAYE [facility] [id number] [facility] 2023-07-09 00:00:00 2023-07-09 00:00:00 Travel 1.2.840.1 09916.1.1 3.104.2.7 .3.421433 .8 1.2.840.114 350.1.13.10 4.2.7.3.698 084.8 [id number] [facility] 2023-07-08 10:00:00 2023-07-08 10:00:00 Outpatient Javon JOE WATKINS [facility] [id number] [facility] 2023-06-17 00:00:00 2023-06-17 00:00:00 (TEL) STLMLC STLMLC [id number] [facility] 2023-06-15 00:00:00 2023-06-15 00:00:00 OFFICE VISIT NEW PT LEVEL 4 STLMLC STLMLC [id number] [facility] 2023-06-15 00:00:00 2023-06-15 00:00:00 (TEL) STLMLC STLMLC [id number] [facility] 2023-06-14 00:00:00 2023-06-14 00:00:00 Refill Quentin Ruelas 1.2.840.1 84303.1.1 3.104.2.7 .3.770883 .8 [id number] [facility] 2023-06-01 00:00:00 2023-06-01 00:00:00 OFFICE VISIT ESTAB PT LEVEL 4 STLMLC STLMLC [id number] [facility] 2023-05-14 00:00:00 2023-05-14 00:00:00 (TEL) STLMLC STLMLC [id number] [facility] 2023-04-29 00:00:00 2023-04-29 00:00:00 Telephone Quentin Ruelas 1..840.1 57025.1.1 3.104.2.7 .3.891430 .8 [id number] [facility] 2023-04-19 10:45:00 2023-04-19 10:47:16 Shucker Visit Quentin Ruelas 2, [facility] 1.2.840.1 29857.1.1 3.104.2.7 .3.173574 .8 [id number] [facility] 2023-04-19 10:20:00 2023-04-19 10:25:08 Outpatient R QUENTIN RUELAS [facility] [id number] [facility] 2023-04-19 10:20:00 2023-04-19 10:25:08 Office Visit Quentin Ruelas 1.2.840.1 26186.1.1 3.104.2.7 .3.429624 .8 [id number] [facility] 2023-04-19 00:00:00 2023-04-19 00:00:00 Patient Secure Msg Quentin Ruelas 1.2.840.1 87311.1.1 3.104.2.7 .3.649327 .8 [id number] [facility] 2023-04-19 00:00:00 2023-04-19 00:00:00 Travel 1.2.840.1 10593.1.1 3.104.2.7 .3.150808 .8 1.2.840.114 350.1.13.10 4.2.7.3.698 084.8 [id number] [facility] 2023-04-08 10:00:00 2023-04-08 10:30:04 Outpatient JOE MORENO [facility] [id number] [facility] 2023-04-08 00:00:00 2023-04-08 00:00:00 Orders Only Doctor Unassigned, [place] 1.2.840.1 99248.1.1 3.104.2.7 .3.845560 .8 [id number] [facility] 2023-04-08 00:00:00 2023-04-08 00:00:00 Travel 1.2.840.1 36637.1.1 3.104.2.7 .3.848647 .8 1.2.840.114 350.1.13.10 4.2.7.3.698 084.8 [id number] [facility] 2023-02-23 00:00:00 2023-02-23 00:00:00 Refill Quentin Ruelas 1.2.840.1 85025.1.1 3.104.2.7 .3.411141 .8 [id number] [facility] 2023-02-18 08:30:00 2023-02-18 08:30:00 Outpatient R JOE WATKINS [facility] [id number] [facility] 2022-12-11 00:00:00 2022-12-11 00:00:00 Telephone Quentin Ruelas 1.2.840.1 58462.1.1 3.104.2.7 .3.360393 .8 [id number] [facility] 2022-12-02 14:40:00 2022-12-02 14:40:00 [facility] [id number] 2022-12-02 14:40:00 2022-12-02 14:40:00 [facility] [id number] [facility] 2022-12-02 14:40:00 2022-12-02 14:40:00 [facility] [id number] [facility] 2022-12-02 14:40:00 2022-12-02 14:40:00 [facility] [id number] [facility] 2022-11-05 10:45:00 2022-11-05 11:20:33 Outpatient R JOE WATKINS [facility] [id number] [facility] 2022-11-05 00:00:00 2022-11-05 00:00:00 Travel 1.2.840.1 79214.1.1 3.104.2.7 .3.685161 .8 1.2.840.114 350.1.13.10 4.2.7.3.698 084.8 [id number] [facility] 2022-11-05 00:00:00 2022-11-05 00:00:00 Orders Only Doctor Unassigned, [place] [facility] 1.2.840.114 350.1.13.10 4.2.7.2.686 [id number] [facility] 2022-10-27 00:00:00 2022-10-27 00:00:00 (TEL) STLMLC STLMLC [id number] [facility] 2022-10-15 10:45:00 2022-10-15 10:45:00 Outpatient JOE MORENO [facility] [id number] [facility] 2022-10-14 06:25:00 2022-10-14 15:54:00 Outpatient ERIN SAUNDERS [facility] [address] [facility] 2022-09-18 14:15:00 2022-09-18 14:15:00 Outpatient CHAGO BRITT [facility] [id number] [facility] 2022-08-24 00:00:00 2022-08-24 00:00:00 RefQuentin Jaeger 1.2.840.1 46252.1.1 3.104.2.7 .3.005365 .8 [id number] [facility] 2022-08-24 00:00:00 2022-08-24 00:00:00 Quentin Dueñas 1.2.840.1 03007.1.1 3.104.2.7 .3.546074 .8 [id number] [facility] 2022-08-18 00:00:00 2022-08-18 00:00:00 OFFICE VISIT EST PT LEVEL 3 STLMLC STLMLC [id number] [facility] 2022-07-30 10:00:00 2022-07-30 10:37:37 Outpatient JOE MORENO [facility] [id number] [facility] 2022-07-30 00:00:00 2022-07-30 00:00:00 Travel 1.2.840.1 66665.1.1 3.104.2.7 .3.898747 .8 1.2.840.114 350.1.13.10 4.2.7.3.698 084.8 [id number] [facility] 2022-06-03 06:53:00 2022-06-03 17:00:00 Outpatient ERIN SAUNDERS [facility] [address] [facility] 2022-06-03 00:00:00 2022-06-03 00:00:00 (TEL) STLMLC STLMLC [id number] [facility] 2022-05-28 00:00:00 2022-05-28 00:00:00 Orders Only Doctor Unassigned, [place] 1.2.840.1 20112.1.1 3.104.2.7 .3.871983 .8 [id number] [facility] 2022-05-19 00:00:00 2022-05-19 00:00:00 Orders Only Doctor Unassigned, [place] 1.2.840.1 12652.1.1 3.104.2.7 .3.947309 .8 [id number] [facility] 2022-05-19 00:00:00 2022-05-19 00:00:00 (TEL) STLMLC STLMLC [id number] [facility] 2022-05-19 00:00:00 2022-05-19 00:00:00 (TEL) STLMLC STLMLC [id number] [facility] 2022-05-19 00:00:00 2022-05-19 00:00:00 OL DIG E/M SVC 11-20 MIN STLMLC STLMLC [id number] [facility] 2022-04-24 10:45:00 2022-04-24 11:53:48 Outpatient SHANTHI VERDIN [facility] [id number] [facility] 2022-04-24 00:00:00 2022-04-24 00:00:00 Travel 1.2.840.1 79978.1.1 3.104.2.7 .3.299321 .8 1.2.840.114 350.1.13.10 4.2.7.3.698 084.8 [id number] [facility] 2022-04-22 10:00:00 2022-04-22 10:25:09 [facility] [id number] [facility] 2022-04-22 10:00:00 2022-04-22 10:25:09 Office Visit Guillermo [facility] 1.2.840.114 350.1.13.10 4.2.7.2.686 [id number] [facility] 2022-04-22 10:00:00 2022-04-22 10:25:09 [facility] [id number] [facility] 2022-04-22 10:00:00 2022-04-22 10:00:00 Outpatient Javon RUELAS [facility] [id number] [facility] 2022-04-22 00:00:00 2022-04-22 00:00:00 Travel 1.2.840.1 73314.1.1 3.104.2.7 .3.794177 .8 1.2.840.114 350.1.13.10 4.2.7.3.698 084.8 [id number] [facility] 2022-04-02 00:00:00 2022-04-02 00:00:00 (TEL) [facility] [id number] [facility] 2022-03-13 00:00:00 2022-03-13 00:00:00 (TEL) STLC STLC [id number] [facility] 2022-02-17 00:00:00 2022-02-17 00:00:00 Telephone GuillermoQuentin 1.2.840.1 02836.1.1 3.104.2.7 .3.222644 .8 [id number] [facility] 2022-02-17 00:00:00 2022-02-17 00:00:00 Telephone Quentin Ruelas 1.2.840.1 22262.1.1 3.104.2.7 .3.479423 .8 [id number] [facility] 2022-02-16 00:00:00 2022-02-16 00:00:00 Telephone GuillermoQuentin 1.2.840.1 66332.1.1 3.104.2.7 .3.990056 .8 [id number] [facility] 2022-02-16 00:00:00 2022-02-16 00:00:00 Refill Quentin Ruelas 1.2.840.1 11406.1.1 3.104.2.7 .3.400819 .8 [id number] [facility] 2022-02-16 00:00:00 2022-02-16 00:00:00 Refill Quentin Ruelas 1.2.840.1 97076.1.1 3.104.2.7 .3.734557 .8 [id number] [facility] 2022-02-16 00:00:00 2022-02-16 00:00:00 Telephone Quentin Ruelas 1.2.840.1 54318.1.1 3.104.2.7 .3.321783 .8 [id number] [facility] 2022-02-16 00:00:00 2022-02-16 00:00:00 PREV VISIT EST AGE 40-64 [facility] [id number] [facility] 2022-02-11 00:00:00 2022-02-11 00:00:00 [facility] [id number] 2022-02-06 00:00:00 2022-02-06 00:00:00 Refill Quentin Ruelas 1.2.840.1 58524.1.1 3.104.2.7 .3.671335 .8 [id number] [facility] 2022-02-06 00:00:00 2022-02-06 00:00:00 Refill Quentin Ruelas 1.2.840.1 28251.1.1 3.104.2.7 .3.140609 .8 [id number] [facility] 2022-01-28 14:45:00 2022-01-28 15:29:44 Office Visit Shnatel Fernandez 1.2.840.1 94742.1.1 3.104.2.7 .3.122708 .8 [id number] [facility] 2022-01-28 14:45:00 2022-01-28 15:29:44 Office Visit Shantel Fernandez 1.2.840.1 40844.1.1 3.104.2.7 .3.297457 .8 [id number] [facility] 2022-01-28 14:45:00 2022-01-28 14:45:00 Outpatient R SHANTEL FERNANDEZ [facility] [id number] [facility] 2022-01-28 00:00:00 2022-01-28 00:00:00 Travel 1.2.840.1 76972.1.1 3.104.2.7 .3.390365 .8 1.2.840.114 350.1.13.10 4.2.7.3.698 084.8 [id number] [facility] 2022-01-28 00:00:00 2022-01-28 00:00:00 Travel 1.2.840.1 06286.1.1 3.104.2.7 .3.695961 .8 1.2.840.114 350.1.13.10 4.2.7.3.698 084.8 [id number] [facility] 2022-01-26 00:00:00 2022-01-26 00:00:00 Telephone DontrellWilliamShaina 1.2.840.1 42711.1.1 3.104.2.7 .3.273252 .8 [id number] [facility] 2022-01-26 00:00:00 2022-01-26 00:00:00 Telephone DontrellShaina [facility] 1.2.840.114 350.1.13.10 4.2.7.2.686 [id number] [facility] 2022-01-26 00:00:00 2022-01-26 00:00:00 Telephone Dontrell Shaina 1.2.840.1 48687.1.1 3.104.2.7 .3.744070 .8 [id number] [facility] 2022-01-23 14:59:29 2022-01-23 23:59:00 Hospital Encounter Shaina Jon 1.2.840.1 20181.1.1 3.104.2.7 .3.580739 .8 [id number] [facility] 2022-01-23 14:59:29 2022-01-23 23:59:00 Hospital Encounter Dontrell Shaina [facility] OFF[facility] 1.2.840.114 350.1.13.10 4.2.7.2.686 [id number] [facility] 2022-01-23 14:59:29 2022-01-23 23:59:00 Hospital Encounter Shaina Jon 1.2.840.1 26127.1.1 3.104.2.7 .3.022208 .8 [id number] [facility] 2022-01-23 14:59:29 2022-01-23 14:59:29 Outpatient SHAINA JON [facility] [id number] [facility] 2022-01-23 14:07:51 2022-01-23 14:58:00 Hospital Encounter Shaina Jon 1.2.840.1 56956.1.1 3.104.2.7 .3.110344 .8 [id number] [facility] 2022-01-23 14:07:51 2022-01-23 14:58:00 Hospital Encounter Dontrell, [facility] OFF[facility] BU[facility] 1..840.114 350.1.13.10 4.2.7.2.686 [id number] [facility] 2022-01-23 14:07:51 2022-01-23 14:58:00 Hospital Encounter Shaina Jon 1.2.840.1 91676.1.1 3.104.2.7 .3.128004 .8 [id number] [facility] 2022-01-23 14:07:51 2022-01-23 14:07:51 Outpatient SHAINA JON [facility] [id number] [facility] 2022-01-23 10:19:59 2022-01-23 14:06:00 Hospital Encounter Shaina Jon 1.2.840.1 43604.1.1 3.104.2.7 .3.068052 .8 [id number] [facility] 2022-01-23 10:19:59 2022-01-23 14:06:00 Outpatient R SHAINA JON [facility] [id number] [facility] 2022-01-23 10:19:59 2022-01-23 14:06:00 Hospital Encounter Dontrell, [facility] MED[facility] OFFICE BU[facility] 1..840.114 350.1.13.10 4.2.7.2.686 [id number] [facility] 2022-01-23 10:19:59 2022-01-23 14:06:00 Hospital Encounter Shaina Jon 1.2.840.1 62355.1.1 3.104.2.7 .3.216305 .8 [id number] [facility] 2022-01-23 10:19:59 2022-01-23 10:19:59 Outpatient DONTRELLSHAINA [facility] [id number] [facility] 2022-01-23 00:00:00 2022-01-23 00:00:00 Case Management Shaina Jon 1.2.840.1 13106.1.1 3.104.2.7 .3.426254 .8 [id number] [facility] 2022-01-23 00:00:00 2022-01-23 00:00:00 Letter (Out) Doctor Unassigned, [place] 1.2.840.1 34317.1.1 3.104.2.7 .3.818184 .8 [id number] [facility] 2022-01-23 00:00:00 2022-01-23 00:00:00 Letter (Out) Doctor Unassigned, [place] 1.2.840.1 91553.1.1 3.104.2.7 .3.735043 .8 [id number] [facility] 2022-01-23 00:00:00 2022-01-23 00:00:00 Letter (Out) Doctor Unassigned, [place] [facility] 1.2.840.114 350.1.13.10 4.2.7.2.686 [id number] [facility] 2022-01-23 00:00:00 2022-01-23 00:00:00 Letter (Out) Doctor Unassigned, [place] [facility] 1.2.840.114 350.1.13.10 4.2.7.2.686 [id number] [facility] 2022-01-23 00:00:00 2022-01-23 00:00:00 Case Management Shaina Jon [facility] 1..840.114 350.1.13.10 4.2.7.2.686 [id number] [facility] 2022-01-23 00:00:00 2022-01-23 00:00:00 Case Management Shaina Jon 1.840.1 74199.1.1 3.104.2.7 .3.828387 .8 [id number] [facility] 2022-01-23 00:00:00 2022-01-23 00:00:00 Letter (Out) Doctor Unassigned, [place] 1.2840.1 45152.1.1 3.104.2.7 .3.668495 .8 [id number] [facility] 2022-01-23 00:00:00 2022-01-23 00:00:00 Letter (Out) Doctor Unassigned, [place] 1.2840.1 86975.1.1 3.104.2.7 .3.378542 .8 [id number] [facility] 2022-01-22 20:23:20 2022-01-22 23:59:00 Outpatient R SEKOUALYSSAY [facility] [id number] [facility] 2022-01-22 20:23:20 2022-01-22 23:59:00 Hospital Encounter [facility] 1..840.114 350.1.13.10 4.2.7.2.686 [id number] [facility] 2022-01-22 20:23:20 2022-01-22 23:59:00 Hospital Encounter SekouKelly 1.2.840.1 07694.1.1 3.104.2.7 .3.240187 .8 [id number] [facility] 2022-01-22 20:20:00 2022-01-22 20:41:48 Urgent Care Kelly Calloway [facility] 1.2.840.114 350.1.13.10 4.2.7.2.686 [id number] [facility] 2022-01-22 20:20:00 2022-01-22 20:41:48 Urgent Care Kelly Calloway 1.2.840.1 16490.1.1 3.104.2.7 .3.314758 .8 [id number] [facility] 2022-01-22 00:00:00 2022-01-22 00:00:00 Travel 1.2.840.1 26525.1.1 3.104.2.7 .3.450216 .8 1.2.840.114 350.1.13.10 4.2.7.3.698 084.8 [id number] [facility] 2021-12-11 00:00:00 2021-12-11 00:00:00 [facility] 1.2.840.114 350.1.13.10 4.2.7.2.686 [id number] [facility] 2021-12-02 14:20:00 2021-12-02 15:05:47 [facility] [id number] 2021-12-02 14:20:00 2021-12-02 15:05:47 [facility] 1.2.840.114 350.1.13.10 4.2.7.2.686 [id number] [facility] 2021-12-02 14:20:00 2021-12-02 15:05:47 [facility] [id number] [facility] 2021-12-02 00:00:00 2021-12-02 00:00:00 Orders Only Doctor Unassigned, [place] [facility] 1.2.840.114 350.1.13.10 4.2.7.2.686 [id number] [facility] 2021-11-28 08:30:00 2021-11-28 09:26:07 Outpatient HERMAN KAYE [facility] [id number] [facility] 2021-11-28 08:30:00 2021-11-28 08:30:00 Outpatient HERMAN KAYE [facility] [id number] [facility] 2021-11-28 00:00:00 2021-11-28 00:00:00 Travel 1.2.840.1 46018.1.1 3.104.2.7 .3.604446 .8 1.2.840.114 350.1.13.10 4.2.7.3.698 084.8 [id number] [facility] 2021-11-18 00:00:00 2021-11-18 00:00:00 OFFICE VISIT ESTAB PT LEVEL 4 STLMLC STLMLC [id number] [facility] 2021-09-11 10:45:00 2021-09-11 11:18:14 Outpatient CE GRANT [facility] [id number] [facility] 2021-09-11 10:45:00 2021-09-11 10:45:00 Outpatient CE GRANT [facility] [id number] [facility] 2021-09-11 00:00:00 2021-09-11 00:00:00 Travel 1.2.840.1 62333.1.1 3.104.2.7 .3.298170 .8 1.2.840.114 350.1.13.10 4.2.7.3.698 084.8 [id number] [facility] 2021-08-14 10:45:00 2021-08-14 11:50:16 Outpatient JOE MORENO [facility] [id number] [facility] 2021-08-14 00:00:00 2021-08-14 00:00:00 Travel 1.2.840.1 45929.1.1 3.104.2.7 .3.032782 .8 1.2.840.114 350.1.13.10 4.2.7.3.698 084.8 [id number] [facility] 2021-08-14 00:00:00 2021-08-14 00:00:00 Orders Only Doctor Unassigned, [place] 1.2.840.1 64727.1.1 3.104.2.7 .3.658469 .8 [id number] [facility] 2021-06-30 00:00:00 2021-06-30 00:00:00 OFFICE VISIT EST PT LEVEL 3 STLMLC STLMLC [id number] [facility] 2021-06-24 00:00:00 2021-06-24 00:00:00 Quentin Dueñas 1.2.840.1 58179.1.1 3.104.2.7 .3.898368 .8 [id number] [facility] 2021-05-23 09:15:00 2021-05-23 09:15:00 Outpatient SHANTHI VERDIN [facility] [id number] [facility] 2021-05-23 00:00:00 2021-05-23 00:00:00 Travel 1.2.840.1 30460.1.1 3.104.2.7 .3.519272 .8 1.2.840.114 350.1.13.10 4.2.7.3.698 084.8 [id number] [facility] 2021-04-09 00:00:00 2021-04-09 00:00:00 (TEL) STLMLC STLMLC [id number] [facility] 2021-03-28 00:00:00 2021-03-28 00:00:00 OFFICE VISIT EST PT LEVEL 3 STLMLC STLMLC [id number] [facility] 2020-12-30 10:00:00 2020-12-30 10:00:00 Outpatient QUENTIN SORENSEN [facility] [id number] [facility] 2020-12-18 00:00:00 2020-12-18 00:00:00 Outpatient STLMLC STLMLC [id number] [facility] 2020-12-13 00:00:00 2020-12-13 00:00:00 Outpatient STLMLC STLMLC [id number] [facility] 2020-12-06 00:00:00 2020-12-06 00:00:00 Outpatient STLMLC STLMLC [id number] [facility] 2020-12-06 00:00:00 2020-12-06 00:00:00 Outpatient STLMLC STLMLC [id number] [facility] 2020-12-02 09:20:00 2020-12-02 09:20:00 Outpatient QUENTIN SORENSEN [facility] [id number] [facility] 2020-10-31 10:00:00 2020-10-31 10:00:00 Outpatient JOE MORENO [facility] [id number] [facility] 2020-10-03 00:00:00 2020-10-03 00:00:00 Outpatient STLMLC STLMLC [id number] [facility] 2020-08-15 00:00:00 2020-08-15 00:00:00 Outpatient STLMLC STLMLC [id number] [facility] 2020-06-04 14:00:00 2020-06-04 14:00:00 Outpatient [facility] Medicine [facility] [id number] [facility] 2020-05-31 10:08:00 2020-05-31 10:08:00 Outpatient [facility] [address] [facility] [place] [facility] [id number] [facility] 2020-05-17 09:15:00 2020-05-17 09:15:00 Outpatient JOE MORENO [facility] [id number] [facility] 2020-05-14 16:00:00 2020-05-14 16:00:00 Out[address] [facility] [id number] [facility] 2020-05-09 09:15:00 2020-05-09 09:15:00 Outpatient HERMAN KAYE [facility] [id number] [facility] 2020-04-24 09:05:00 2020-04-24 09:05:00 Out[address] [facility] [id number] [facility] 2020-04-23 10:53:00 2020-04-23 10:53:00 Out[address] [facility] Medicine [id number] [facility] 2020-03-14 10:00:00 2020-03-14 10:00:00 Outpatient HERMAN KAYE [facility] [id number] [facility] 2020-01-23 10:30:00 2020-01-23 10:30:00 Out[address] [facility] [id number] [facility] 2020-01-19 16:03:00 2020-01-19 16:03:00 Outpatient [place] [place] [facility] [id number] [facility] 2020-01-11 10:00:00 2020-01-11 10:00:00 Outpatient HERMAN KAYE [facility] [id number] [facility] 2019-12-07 09:15:00 2019-12-07 09:15:00 Outpatient HERMAN KAYE [facility] [id number] [facility] 2019-11-29 14:40:00 2019-11-29 14:40:00 Outpatient QUENTIN SORENSEN [facility] [id number] [facility] 2019-07-27 16:30:00 2019-07-27 16:30:00 [address] [facility] [id number] [facility] 2019-07-18 08:20:00 2019-07-18 08:20:00 Outpatient [facility] [facility] [id number] [facility] 2019-04-14 10:40:00 2019-04-14 10:40:00 Outpatient [facility] [facility] [id number] [facility] 2019-02-27 16:40:00 2019-02-27 16:40:00 Out[facility] [facility] [id number] [facility] 2018-09-15 08:45:00 2018-09-15 08:45:00 Outpatient [facility] [facility] [id number] [facility] 2018-06-16 10:30:00 2018-06-16 10:30:00 Outpatient [address] [facility] [id number] [facility] 2018-03-16 10:30:00 2018-03-16 10:30:00 Outpatient [place] [facility] Medicine [id number] [facility] Results Test Description Test Time Test Comments Results Result Co mments Source Basic Metabolic Panel (NA, K, CL, CO2, GLUCOSE, BUN, CREATININE, CA)2024-05-16 17:51:55* Test Item Value Reference Range Interpretation Comme nts NA (test code = 3438803093) 138 mmol/L 135-145 K (test code = 8233151768) 3.6 mmol/L 3.5-5.0 CL (test code = 2837346665) 94 mmol/L 98-108 L CO2 TOTAL (test code = 0946859344) 34 mmol/L 23-31 H AGAP (test code = 1005372995) 10 2-16 BUN (test code = 2439119437) 34 mg/dL 7-23 H GLUCOSE (test code = 5030424310) 98 mg/dL 70-110 CREATININE (test code = 2160-0) 0.93 mg/dL 0.50-1.04 CALCIUM (test code = 6651738899) 9.8 mg/dL 8.6-10.6 eGFR (test code = 06414-1) 67.1 mL/min/1.73m2 CKD-EPI eGFR (2020). Assuming creatinine has been stable day-to-day for at least three months, the eGFR indicates Category G2 (60 - 89 mL/min/1.73 m2) Lab Interpretation (test code = 68438-8) [facility]2024-04-28 00:54:18* Test Item Value Reference Range Interpretation Comme nts Height (test code = 7761796402) 58 in Weight (test code = 9730055615) 128 lbs Systolic BP (test code = 7976129980) 159 mmHg Diastolic BP (test code = 3953057306) 77 mmHg Heart Rate (test code = 5268361302) 80 bpm RVOT diameter (test code = 0736198551) 2.5 cm RVOT Proximal Diameter (test code = 0621961266) 2.60 cm MR max PG (test code = 3587845898) 116.20 mm[Hg] MR max vlad (test code = 0270377282) 539.00 cm/s Ao root diam (test code = 7426483073) 2.80 cm Mr max vlad (test code = 5817361451) 539.0 m/s Aortic root (test code = 9406693491) 2.8 cm Ao root annulus (test code = 7317350693) 2.8 cm BSA (test code = 8071251650) 1.51 m2 LVOT diameter (test code = 1838028930) 1.76 cm LVOT area (test code = 4689328076) 2.43 cm2 LA size (test code = 1674960725) 4.5 cm ACS (test code = 7335921509) 2.00 cm LVIDD (test code = 0656636636) 4.90 cm Left Ventricular End Diastolic Volume by Teichholz Method (test code = 9046313) 113.9 mL IVS (test code = 2928116884) 0.93 cm Interventricular Septum Diastolic Thickness by 2D (test code = 0524341) 0.93 cm LVPWD (test code = 6632747138) 0.94 cm PW (test code = 7240955724) 0.94 cm 0.6-1.1 EF(Teich) (test code = 0907405158) 57.30 % LVIDS (test code = 9858704200) 3.40 cm Left Ventricular End Systolic Volume by Teichholz Method (test code = 7006388) 48.6 mL FS (test code = 1892585087) 30 % EF - 2D (test code = 08426226) 57.30 % TR Peak Vlad (test code = 2684239835) 267.9 cm/s Triscuspid Valve Regurgitation Peak Gradient (test code = 9826117957) 28.7 mmHg PV PEAK VELOCITY (test code = 6594540972) 76.5 cm/s PV peak gradient (test code = 2712785040) 2.34 mmHg MV E-F slope (test code = 4038679408) 37.40 cm/s MV Peak E Vlad (test code = 5846910768) 63.4 cm/s MV valve area p 1/2 method (test code = 7936810609) 3.90 cm2 MV dec slope (test code = 4203769040) 319.70 cm/s2 MV P1/2t max vlad (test code = 7721965043) 61.80 cm/s MV Peak A Vlad (test code = 5818629160) 97.5 cm/s E/A ratio (test code = 3871335284) 0.65 ratio LVOT stroke volume (test code = 6594978653) 56.90 cm3 LVOT peak vlad (test code = 0893340275) 96.9 cm/s LVOT mn grad (test code = 6040063476) 1.4 mmHg AV LVOT peak gradient (test code = 4192547212) 3.8 mmHg LVOT peak VTI (test code = 8444040369) 23.4 cm LV V1 mean (test code = 6344817836) 52.70 cm/s Aortic valve mean velocity (test code = 2539377863) 88.8 cm/s Ao peak vlad (test code = 8544813694) 146.0 cm/s Ao VTI (test code = 2045121619) 32.5 cm AV area by cont VTI (test code = 7226249055) 1.8 cm2 AV area peak vlad (test code = 4089036684) 1.6 cm2 Ao max PG (test code = 3914088802) 8.50 mm[Hg] AV peak gradient (test code = 0683784965) 8.5 mmHg AV valve area (test code = 9858805854) 1.75 cm2 AV mean gradient (test code = 3562664252) 3.7 mmHg LAV(MOD-sp4) (test code = 0238520067) 45.20 mL LA Volume Index (BP) (test code = 2687305666) 28.5 mL/m2 LA volume (BP) (test code = 0379354421) 42.9 mL LAV(MOD-sp2) (test code = 0058544941) 41.40 mL A4C EF (test code = 0201750625) 57.60 % EF(sp4-el) (test code = 2983191932) 61.20 % SV(MOD-sp4) (test code = 9291606809) 34.20 mL SV(sp4-el) (test code = 4690489810) 36.40 mL RVOT area (test code = 5155398747) 4.91 cm2 Radiology Study observation (narrative) (test code = 68430-4) DIANA (test code = DIANA) ?Left?Ventricle: Left [...] 2D, color flow Doppler and spectral Doppler. [facility] W/AUTO [id number] 00:00:00* Test Item Value Reference Range Interpretation Comme nts NUCLEATED RBCS (test code = 67434-9) 0.0 /100 WBC'S See_Comment [Automated [employer]] The system which generated this result transmitted reference range: 0.0 /100 WBC'S. The reference range was not used to interpret this result as normal/abnormal. ABSOLUTE EOSINOPHILS (test code = 77913-1) 0.29 K/UL See_Comment [Automated [employer]] The system which generated this result transmitted reference range: 0.00-0.50 K/UL. The reference range was not used to interpret this result as normal/abnormal. ABSOLUTE LYMPHOCYTES (test code = 94244-0) 1.86 K/UL See_Comment [Automated [employer]] The system which generated this result transmitted reference range: 1.00-4.00 K/UL. The reference range was not used to interpret this result as normal/abnormal. ABSOLUTE MONOCYTES (test code = 90711-6) 0.57 K/UL See_Comment [Automated [employer]] The system which generated this result transmitted reference range: 0.20-1.00 K/UL. The reference range was not used to interpret this result as normal/abnormal. ABSOLUTE NEUTROPHILS (test code = 09546-3) 5.99 K/UL See_Comment [Automated [employer]] The system which generated this result transmitted reference range: 1.50-7.50 K/UL. The reference range was not used to interpret this result as normal/abnormal. BASOPHILS (test code = 11889-5) 1.5 % EOSINOPHILS (test code = 05298-4) 3.3 % HEMATOCRIT (test code = 58538-1) 44.8 % See_Comment [Automated messa ge] The [...] result as normal/abnormal. LYMPHOCYTES (test code = 74610-8) 20.9 % MCH (test code = 20339-1) 32.5 PG See_Comment [Automated messa ge] The system which generated this result transmitted reference range: 25.0-33.0 PG. The reference range was not used to interpret this result as normal/abnormal. MCHC (test code = 04791-1) 34.2 G/DL See_Comment [Automated messa ge] The system which generated this result transmitted reference range: 31.0-36.0 G/DL. The reference range was not used to interpret this result as normal/abnormal. MCV (test code = 45636-6) 95.1 fL See_Comment [Automated messa ge] The system which generated this result transmitted reference range: 80.0-99.0 fL. The reference range was not used to interpret this result as normal/abnormal. MONOCYTES (test code = 60160-9) 6.4 % NEUTROPHILS (test code = 94108-2) 67.1 % PLATELET COUNT (test code = 87230-5) 290 K/UL See_Comment [Automated messa ge] The system which generated this result transmitted reference range: 130-400 K/UL. The reference range was not used to interpret this result as normal/abnormal. RBC (test code = 77386-8) 4.71 M/UL See_Comment [Automated messa ge] The system which generated this result transmitted reference range: 3.80-5.40 M/UL. The reference range was not used to interpret this result as normal/abnormal. RDW (test code = 93560-0) 13.2 % See_Comment [Automated messa ge] The system which generated this result transmitted reference range: 11.5-15.0 %. The reference range was not used to interpret this result as normal/abnormal. WBC (test code = 03435-7) 8.9 K/UL See_Comment [Automated [employer] ge] The system which generated this result transmitted reference range: 3.5-11.0 K/UL. The reference range was not used to interpret this result as normal/abnormal. 3D SCR VIKAS BILAT W/CAD3D SCR VIKAS BILAT W/CAD3D SCR VIKAS BILAT W/CAD3D SCR VIKAS BILAT W/CADMRI Knee Right Wo ContMRI Knee Right Wo Cont
--- NOTE | 2024-10-02 18:21 | EDPHYS ---
Physician Documentation [facility] Name: Michelle Carlson Age: 68 yrs Sex: Female : 1955 Arrival Date: 10/02/2024 Time: 14:19 Bed 11 Private MD: ED Physician Vera Simon HPI: 10/02 19:16 This 68 yrs old Female presents to ER via Ambulatory with complaints of Head sb4 Injury-Adult. 19:16 Patient states that she sustained a mechanical fall about 2 weeks ago. States that she sb4 did not think anything of it because she falls somewhat frequently. States that she did hit her head but does not think she lost any consciousness. She is not on blood thinners. States that she was not having any complications from it but today she developed a headache on the right side of her head that she attributes to the fall. She called her PCP who told her to come to the ED for further workup. She denies any dizziness, nausea, vomiting, unsteady gait, weakness, paresthesias. Historical: - Allergies: 14:38 PENICILLINS; hb - PMHx: 14:38 depressive disorder; Hypercholesterolemia; Myocardial infarction; Hypertensive hb disorder; Gastroesophageal reflux disease; - PSHx: 14:38 Total abdominal hysterectomy; hb - Immunization history:: Adult Immunizations unknown. - Infectious Disease History:: Denies. - Social history:: Smoking status: unknown. ROS: 19:16 Constitutional: Negative for fever, chills, and weight loss, sb4 19:16 Neuro: Positive for headache, 19:16 All other systems are negative, Exam: 19:16 Constitutional: This is a well developed, well nourished patient who is awake, alert, sb4 and in no acute distress. Head/Face: Normocephalic, atraumatic. Eyes: Extra-ocular motions intact. Periorbital areas with no swelling, redness, or edema. ENT: Mucous membranes moist. Cardiovascular: Regular rate and rhythm with a normal S1 and S2. Respiratory: No increased work of breathing, no retractions or nasal flaring. Abdomen/GI: Soft, non-tender, no distension. Skin: Warm, dry with normal turgor. Normal color with no rashes, no lesions, and no evidence of cellulitis. Neuro: Awake and alert, GCS 15, oriented to person, place, time, and situation. Motor strength 5/5 in all extremities. Sensory grossly intact. 19:16 Eyes: Pupils: equal, round, and reactive to light and accomodation, Vital Signs: 14:37 BP 149 / 89; Pulse 85; Resp 16; Temp 98.5; Pulse Ox 100% on R/A; Weight 58.51 kg; hb Height 4 ft. 11 in. ; Pain 5/10; 18:47 BP 126 / 89; Pulse 83; Resp 15; Pulse Ox 100% ; Pain 0/10; jl7 14:37 Body Mass Index 26.05 (58.51 kg, 149.86 cm) hb 14:37 Pain Scale: Adult hb 18:47 Pain Scale: Adult jl7 [place] Coma Score: 14:37 Eye Response: spontaneous(4). Motor Response: obeys commands(6). Verbal Response: hb oriented(5). Total: 15. 19:17 Eye Response: spontaneous(4). Motor Response: obeys commands(6). Verbal Response: sb4 oriented(5). Total: 15. MDM: 14:34 Medical Screening Exam initiated sb4 19:17 Data reviewed: vital signs, nurses notes, and as a result, I will discharge patient. sb4 Test considered but Not performed: CT: See [facility] head CT. CT also not available at this time. Scoring Tools [facility] CT Head Injury/Trauma Rule High Risk Criteria: Rules out need for neurosurgical intervention GCS < 15 at 2 hours post-injury No Suspected open or depressed skull fracture No Any signs of basilar skull fracture? (Hemotympanum, raccoon eyes, Hernandez's Sign, CSF darrin-/rhinorrhea) No >/=2 episodes of vomiting No Age >/=65 years Yes. Administered Medications: No medications were administered Disposition Summary: 10/02/24 18:20 Discharge Ordered Notes: Location: Home sb4 Problem: new sb4 Symptoms: have improved sb4 Condition: Stable sb4 Diagnosis - Headache sb4 Followup: sb4 - With: Emergency Department - When: As needed - Reason: Trouble breathing, Worsening of condition Discharge Instructions: - Discharge Summary Sheet sb4 - Head Injury, Adult, [id number] sb4 Forms: - Patient Portal Instructions sb4 - Leadership Thank You Letter sb4 Addendum: 10/05/2024 19:58 Co-signature as Attending Physician, Vera SANCHEZ I reviewed the patient's care g b1 provided by the Advanced Practice Provider and agree with the diagnosis and treatment plan. Signatures: Dispatcher [employer] Alba Ocasio, RN RN Betty Mishra RN RN jl7 Viv Nunez, PA-C PA-C sb4 Vera Simon MD MD gb1
--- NOTE | 2024-10-02 18:21 | ER ---
[facility] Name: Michelle Carlson Age: 68 yrs Sex: Female : 1955 Arrival Date: 10/02/2024 Time: 14:19 Bed 11 Private MD: Diagnosis: Headache Presentation: 10/02 14:37 Chief complaint: Right sided headache and dizziness that started after fall 2 weeks hb ago, became worse today. Coronavirus screen: At this time, the client does not indicate any symptoms associated with coronavirus-19. Ebola Screen: No symptoms or risks identified at this time. Mechanism of Injury: The problem was sustained. Initial Sepsis Screen: Does the patient meet any 2 criteria? No. Patient's initial sepsis screen is negative. Does the patient have a suspected source of infection? No. Patient's initial sepsis screen is negative. Risk Assessment: Do you want to hurt yourself or someone else? Patient reports no desire to harm self or others. Onset of symptoms was October 02, 2024. 14:37 Method Of Arrival: Ambulatory hb 14:37 Acuity: UYEN 3 hb Triage Assessment: 18:49 General: Appears. jl7 Historical: - Allergies: 14:38 PENICILLINS; hb - PMHx: 14:38 depressive disorder; Hypercholesterolemia; Myocardial infarction; Hypertensive hb disorder; Gastroesophageal reflux disease; - PSHx: 14:38 Total abdominal hysterectomy; hb - Immunization history:: Adult Immunizations unknown. - Infectious Disease History:: Denies. - Social history:: Smoking status: unknown. Screenin:47 [facility] ED Fall Risk Assessment (Adult) History of falling in the last 3 months, jl7 including since admission Yes- single mechanical fall (1 pt) Confusion or Disorientation No (0 pts) Intoxicated or Sedated No (0 pts) Impaired Gait No (0 pts) Mobility Assist Device Used No (0 pt) Altered Elimination No (0 pt) Score/Fall Risk Level 0 - 2 = Low Risk Oriented to surroundings, Maintained a safe environment. Abuse screen: Denies threats or abuse. Denies injuries from another. Nutritional screening: No deficits noted. Tuberculosis screening: No symptoms or risk factors identified. Assessment: 18:00 Pain: Denies pain. Neuro: Level of Consciousness is awake, alert, obeys commands, jl7 Oriented to person, place, time, situation. Vital Signs: 14:37 BP 149 / 89; Pulse 85; Resp 16; Temp 98.5; Pulse Ox 100% on R/A; Weight 58.51 kg; hb Height 4 ft. 11 in. ; Pain 5/10; 18:47 BP 126 / 89; Pulse 83; Resp 15; Pulse Ox 100% ; Pain 0/10; jl7 14:37 Body Mass Index 26.05 (58.51 kg, 149.86 cm) hb 14:37 Pain Scale: Adult hb 18:47 Pain Scale: Adult jl7 [place] Coma Score: 14:37 Eye Response: spontaneous(4). Motor Response: obeys commands(6). Verbal Response: hb oriented(5). Total: 15. 19:17 Eye Response: spontaneous(4). Motor Response: obeys commands(6). Verbal Response: sb4 oriented(5). Total: 15. ED Course: 14:21 Patient arrived in ED. im 14:28 iVv [facility]unez [facility] sb4 14:28 Vera Simon MD is Attending Physician. sb4 14:38 Triage completed. hb 18:47 Betty Gomez, RN is Primary Nurse. jl7 18:47 No provider procedures requiring assistance completed. Patient did not have IV access jl7 during this emergency room visit. 18:47 Patient has correct armband on for positive identification. Provided Education on: jl7 discharge. 18:49 Arm band placed on right wrist. jl7 Administered Medications: No medications were administered Medication: 18:47 VIS not applicable for this client. jl7 Outcome: 18:20 Discharge ordered by . sb4 18:49 Discharged to home ambulatory, jl7 18:49 Condition: stable 18:49 Discharge instructions given to patient, Instructed on discharge instructions, follow up and referral plans. Demonstrated understanding of instructions, follow-up care, 18:49 Patient left the ED. jl7 Signatures: Alba Solis RN RN Betty Gomez RN RN jl7 Viv Nunez PA-C PA-C [facility] Adele Silverman im
[2024-10-02 18:59] VITALS: TEMP 98.5; O2SAT 100
[2024-10-02 19:00] VITALS: BP 126/89
== END 2024-10-02 18:49 | disposition home or self-care (01) ==
LOC: ER 14:19
DX: R51.9 Headache, unspecified (principal); I10 Essential (primary) hypertension; E78.00 Pure hypercholesterolemia, unspecified; K21.9 Gastro-esophageal reflux disease without esophagitis; I25.2 Old myocardial infarction; Z91.81 History of falling; Z88.0 Allergy status to penicillin
CPT/HCPCS: 99282